=== PATIENT | male | born 1935 | race Caucasian/White ===

== ENCOUNTER 2017-12-18 14:23 | Day surgery (SDC) | payer MEDICARE ==
[2017-12-09 12:58] LABS: BASOPHILS % (AUTO) 0.4 % (0-1); EOSINOPHILS # (AUTO) 0.2 X10'3 (0-0.9); EOSINOPHILS % (AUTO) 2.8 % (0-6); HEMATOCRIT 43.8 % (42.0-52.0); HEMOGLOBIN 15.1 g/dl (14.0-17.9); LYMPHOCYTES # (AUTO) 1.5 X10'3 (1.1-4.8); LYMPHOCYTES % (AUTO) 21.3 % (21-51); MEAN CORPUSCULAR HEMOGLOBIN 33.3 PG (27.0-31.0); MEAN CORPUSCULAR HGB CONC 34.6 % (33.0-36.5); MEAN CORPUSCULAR VOLUME 96.2 FL (78-98); MEAN PLATELET VOLUME 7.7 FL (7.4-10.4); MONOCYTES # (AUTO) 0.8 X10'3 (0-0.9); NEUTROPHILS # (AUTO) 4.7 X10'3 (1.8-7.7); NEUTROPHILS % (AUTO) 64.5 % (42-75); PLATELET COUNT 243 X10'3 (140-440); RED BLOOD COUNT 4.55 X10'6 (4.70-6.10); WHITE BLOOD COUNT 7.3 X10'3 (4.5-11.0)
[2017-12-09 13:12] LABS: ALBUMIN 3.4 G/DL (3.4-5.0); ANION GAP 9 (8-16); BLOOD UREA NITROGEN 17 MG/DL (7-18); BUN/CREATININE RATIO 16.2 (5.4-32.0); CALCIUM 8.9 MG/DL (8.5-10.1); CHLORIDE 101 MMOL/L (99-107); CREATININE 1.05 MG/DL (0.60-1.10); GLUCOSE 215 MG/DL (70-104); POTASSIUM 3.6 MMOL/L (3.5-5.1); SODIUM 141 MMOL/L (135-145); TOTAL CARBON DIOXIDE 31.5 MMOL/L (24-32); eGFR 68 ML/MIN
[2017-12-09 14:18] LABS: INR 1.4 INR; PARTIAL THROMBOPLASTIN TIME 39 SECONDS (22-32); PROTHROMBIN TIME 14.8 SECONDS (9.0-12.0)
[2017-12-17 11:29] LABS: BASOPHILS % (AUTO) 0.2 % (0-1); EOSINOPHILS # (AUTO) 0.2 X10'3 (0-0.9); EOSINOPHILS % (AUTO) 3.1 % (0-6); HEMATOCRIT 42.4 % (42.0-52.0); LYMPHOCYTES # (AUTO) 1.6 X10'3 (1.1-4.8); LYMPHOCYTES % (AUTO) 22.6 % (21-51); MEAN CORPUSCULAR HEMOGLOBIN 33.6 PG (27.0-31.0); MEAN CORPUSCULAR HGB CONC 35.3 % (33.0-36.5); MEAN CORPUSCULAR VOLUME 95.1 FL (78-98); MONOCYTES # (AUTO) 0.7 X10'3 (0-0.9); MONOCYTES % (AUTO) 10.4 % (2-12); NEUTROPHILS # (AUTO) 4.4 X10'3 (1.8-7.7); NEUTROPHILS % (AUTO) 63.7 % (42-75); PLATELET COUNT 241 X10'3 (140-440); RED BLOOD COUNT 4.46 X10'6 (4.70-6.10); RED CELL DISTRIBUTION WIDTH 13.4 % (11.5-14.5); WHITE BLOOD COUNT 6.9 X10'3 (4.5-11.0)
[2017-12-17 11:40] LABS: INR 1.1 INR; PARTIAL THROMBOPLASTIN TIME 39 SECONDS (22-32); PROTHROMBIN TIME 11.8 SECONDS (9.0-12.0)
[2017-12-17 11:43] LABS: ALBUMIN 3.5 G/DL (3.4-5.0); ANION GAP 10 (8-16); BLOOD UREA NITROGEN 15 MG/DL (7-18); BUN/CREATININE RATIO 13.6 (5.4-32.0); CALCIUM 8.8 MG/DL (8.5-10.1); CHLORIDE 100 MMOL/L (99-107); GLUCOSE 277 MG/DL (70-104); POTASSIUM 3.8 MMOL/L (3.5-5.1); SODIUM 139 MMOL/L (135-145); TOTAL CARBON DIOXIDE 29.5 MMOL/L (24-32); eGFR 64 ML/MIN
[2017-12-18] VITALS (8 sets, daily range): BP systolic 103–139; BP diastolic 50–78
[~2017-12-18] VITALS: Ht 172.7 cm; Wt 89.0 kg
[~2017-12-18 14:23] MED LIST: AMIO200T57 PO; APIX5TAB3 PO; ATOR40TA71 PO; CHOL400T32 PO; INSU100C4 SQ; LANTUS SUBCUT; LIRA0.6P2 SUBCUT; LOSA1TAB41 PO; METF500T4 PO
[2017-12-18] MEDS ORDERED: LORazepam 0.5 MG tablet PO PRN (14:45)
[2017-12-18] MEDS ORDERED: normal saline 1000ml 1,000 ML IV SCH (14:45)
[2017-12-18] MEDS ORDERED: diphenhydrAMINE 25mg capsule PO PRN (14:45)
[2017-12-18] MEDS ORDERED: INSU100I29 SQ (14:50)
[2017-12-18] MEDS ORDERED: FURO-150 PO (14:50)
[2017-12-18] MEDS ORDERED: [UNRECOGNIZED DRUG - CODE] SQ (14:50)
[2017-12-18] MEDS ORDERED: LOSA25TA96 PO (14:50)
[2017-12-18] MEDS ORDERED: POTA20TA10 PO (14:50)
[2017-12-18] MEDS ORDERED: WARF5TAB PO (14:50)
[2017-12-18] MEDS ORDERED: midazolam 2 mg/2 ml injection ONE (15:25)
[2017-12-18] MEDS ORDERED: LIDOcaine 1%/PF (10mg/ml) 5ml vial ONE ×2 (15:25→15:27)
[2017-12-18] MEDS ORDERED: fentaNYL/PF 50MCG/1 ML 2ML syringe ONE (15:25)
[2017-12-18] MEDS ORDERED: iohexol 350MG/ML 100ml bottle IV ONE (15:25)
[2017-12-18] MEDS ORDERED: HYDROcodone/acetaminophen 5mg/325mg tablet PO PRN (17:35)
[2017-12-18] MEDS ORDERED: OXAZEpam 15mg capsule PO PRN (17:35)
[2017-12-18] MEDS ORDERED: ondansetron/PF 4mg/2ml inj IV PRN (17:35)
[2017-12-18] MEDS ORDERED: HYDROcodone/acetaminophen 10/325mg tab PO PRN (17:35)
[2017-12-18] MEDS ORDERED: proCHLORperazine 10 MG/2 ml inj IV PRN (17:35)
== END 2017-12-18 19:45 | disposition home or self-care (01) ==
LOC: SSTAY O 14:23
PROVIDERS: ATTEND Internal Medicine Interventional Cardiology
DX: I25.10 Atherosclerotic heart disease of native coronary artery without angina pectoris (principal); I35.1 Nonrheumatic aortic (valve) insufficiency; Z79.01 Long term (current) use of anticoagulants; E78.4 Other hyperlipidemia; E11.9 Type 2 diabetes mellitus without complications; Z79.4 Long term (current) use of insulin; Z79.899 Other long term (current) drug therapy; Z96.651 Presence of right artificial knee joint; I11.0 Hypertensive heart disease with heart failure; I50.9 Heart failure, unspecified; J44.9 Chronic obstructive pulmonary disease, unspecified; G47.33 Obstructive sleep apnea (adult) (pediatric); I48.91 Unspecified atrial fibrillation; E78.00 Pure hypercholesterolemia, unspecified; Z86.73 Personal history of transient ischemic attack (TIA), and cerebral infarction without residual deficits
CPT/HCPCS: 36415; 80048; 82948; 85025; 85610; 85730; 93458; 99152; A6257; C1769; J1644; J2001; J2250; J3010; J7030; Q0163; Q9967; 99153; A4620

== ENCOUNTER 2018-02-13 09:30 | Inpatient (IN) | payer MEDICARE ==
[2018-02-13] VITALS (10 sets, daily range): BP systolic 106–168; BP diastolic 49–93
[~2018-02-13] VITALS: Ht 167.6 cm; Wt 86.4 kg
[~2018-02-13 09:30] MED LIST changes: -APIX5TAB3 PO; -CHOL400T32 PO; +FURO-150 PO; +INSU100I29 SQ; -LANTUS SUBCUT; -LOSA1TAB41 PO; +LOSA25TA96 PO; -METF500T4 PO; +POTA20TA10 PO; +WARF5TAB PO; +[UNRECOGNIZED DRUG - CODE] SQ
[2018-02-13 09:49] LABS: BASOPHILS % (AUTO) 0.4 % (0-1); EOSINOPHILS # (AUTO) 0.2 X10'3 (0-0.9); EOSINOPHILS % (AUTO) 2.9 % (0-6); HEMATOCRIT 37.2 % (42.0-52.0); HEMOGLOBIN 12.7 g/dl (14.0-17.9); LYMPHOCYTES # (AUTO) 1.7 X10'3 (1.1-4.8); LYMPHOCYTES % (AUTO) 27.2 % (21-51); MEAN CORPUSCULAR HGB CONC 34.1 % (33.0-36.5); MEAN CORPUSCULAR VOLUME 96.8 FL (78-98); MEAN PLATELET VOLUME 7.4 FL (7.4-10.4); MONOCYTES # (AUTO) 0.7 X10'3 (0-0.9); MONOCYTES % (AUTO) 12.1 % (2-12); NEUTROPHILS # (AUTO) 3.5 X10'3 (1.8-7.7); NEUTROPHILS % (AUTO) 57.4 % (42-75); PLATELET COUNT 159 X10'3 (140-440); RED BLOOD COUNT 3.85 X10'6 (4.70-6.10); RED CELL DISTRIBUTION WIDTH 13.7 % (11.5-14.5); WHITE BLOOD COUNT 6.1 X10'3 (4.5-11.0)
[2018-02-13] MEDS ORDERED: DOPamine 400mg/D5W 250ml 250 ML IV PRN (09:56)
[2018-02-13 10:00] LABS: INR 1.7 INR; PARTIAL THROMBOPLASTIN TIME 31 SECONDS (22-32); PROTHROMBIN TIME 17.3 SECONDS (9.0-12.0)
[2018-02-13] MEDS ORDERED: DOPamine/D5W 400mg/250ml bag IV ONE (10:00)
[2018-02-13] MEDS ORDERED: atropine 0.1mg/ml 10ml syringe ONE ×2 (10:00→14:37)
[2018-02-13 10:07] LABS: ALANINE AMINOTRANSFERASE 35 U/L (12-78); ALBUMIN 2.9 G/DL (3.4-5.0); ALBUMIN/GLOBULIN RATIO 0.8 (1.1-1.5); ALKALINE PHOSPHATASE 48 IU/L (46-116); ANION GAP 5 (8-16); ASPARTATE AMINO TRANSFERASE 24 U/L (10-37); BILIRUBIN,TOTAL 0.5 MG/DL (0.1-1.0); BLOOD UREA NITROGEN 11 MG/DL (7-18); BUN/CREATININE RATIO 10.9 (5.4-32.0); CALCIUM 8.5 MG/DL (8.5-10.1); CHLORIDE 102 MMOL/L (99-107); CREATININE 1.01 MG/DL (0.60-1.10); GLUCOSE 259 MG/DL (70-104); POTASSIUM 3.7 MMOL/L (3.5-5.1); SODIUM 134 MMOL/L (135-145); TOTAL CARBON DIOXIDE 26.8 MMOL/L (24-32); TOTAL PROTEIN 6.5 G/DL (6.4-8.2); eGFR 71 ML/MIN
[2018-02-13] MEDS ORDERED: ondansetron/PF 4mg/2ml inj IV ONE (10:10)
[2018-02-13 10:14] LABS: MAGNESIUM 2.2 MG/DL (1.5-2.4)
[2018-02-13] MEDS ORDERED: LISI-604 PO (10:34)
[2018-02-13] MEDS ORDERED: ASPI-1265 PO (10:34)
[2018-02-13] MEDS ORDERED: FLO0.4C PO (10:34)
[2018-02-13] MEDS ORDERED: BUDE10.22 INH (10:34)
[2018-02-13] MEDS ORDERED: furosemide 10 MG/1 ML 10ml inj IV ONE (11:15)
[2018-02-13] MEDS ORDERED: HYDROcodone/acetaminophen 10/325mg tab PO ONE (12:20)
[2018-02-13] MEDS ORDERED: acetaminophen 325mg tablet PO PRN (12:25)
[2018-02-13] MEDS ORDERED: normal saline 1000ml 1,000 ML IV SCH (12:25)
[2018-02-13] MEDS ORDERED: magnesium hydroxide 30ml (MOM) UD suspension PO PRN (12:25)
[2018-02-13] MEDS ORDERED: HYDROcodone/acetaminophen 5mg/325mg tablet PO PRN (12:25)
[2018-02-13] MEDS ORDERED: ondansetron/PF 4mg/2ml inj IV PRN (12:25)
[2018-02-13] MEDS ORDERED: mag hydrox/Alum hydrox/simeth 30ml oral suspension PO PRN (12:25)
[2018-02-13] MEDS ORDERED: atropine 1 MG/1 ML vial IV PRN (14:50)
[2018-02-13] MEDS ORDERED: glucagon, human recombinant 1mg kit SUBCUT PRN (19:05)
[2018-02-13] MEDS ORDERED: dextrose 50%-water 50ml dispensing syringe IV PRN ×2 (19:05)
[2018-02-13] MEDS ORDERED: dextrose ORAL solution 15 GM/59 ML bottle PO PRN ×2 (19:05)
[2018-02-13] MEDS ORDERED: NORMAL SALINE IV PRN (19:10)
[2018-02-13] MEDS ORDERED: ISOPROTERENOL IV PRN (19:10)
[2018-02-13] MEDS ORDERED: phytonadione 10 MG/1 ML amp SQ ONE (19:20)
[2018-02-13] MEDS ORDERED: LIDOcaine 1% w/EPI 1:100,000 30ml vial (MDV) ONE (19:52)
[2018-02-13] MEDS ORDERED: midazolam 2 mg/2 ml injection ONE (19:52)
[2018-02-13] MEDS ORDERED: ceFAZolin 1000mg inj ONE (19:52)
[2018-02-13] MEDS ORDERED: fentaNYL/PF 50MCG/1 ML 2ML syringe ONE (19:52)
[2018-02-13] MEDS ORDERED: ceFAZolin 1GM/D5W- ADD-VANTAGE 50 ML IV ONE (19:53)
[2018-02-13] MEDS ORDERED: normal saline 1000ml 1,000 ML IV ONE (21:30)
[2018-02-13] MEDS: insulin glargine (Lantus) pen - multi-dose SQ SCH (21:40)
[2018-02-14] VITALS (17 sets, daily range): BP systolic 109–147; BP diastolic 52–78
[2018-02-14] MEDS: ceFAZolin 1GM/D5W- ADD-VANTAGE 50 ML IV SCH ×3 (03:56→21:18)
[2018-02-14 05:58] LABS: BASOPHILS % (AUTO) 0.2 % (0-1); EOSINOPHILS # (AUTO) 0.2 X10'3 (0-0.9); EOSINOPHILS % (AUTO) 2.5 % (0-6); HEMATOCRIT 37.2 % (42.0-52.0); HEMOGLOBIN 12.8 g/dl (14.0-17.9); LYMPHOCYTES # (AUTO) 1.1 X10'3 (1.1-4.8); MEAN CORPUSCULAR HEMOGLOBIN 33.4 PG (27.0-31.0); MEAN CORPUSCULAR HGB CONC 34.2 % (33.0-36.5); MEAN CORPUSCULAR VOLUME 97.4 FL (78-98); MEAN PLATELET VOLUME 7.5 FL (7.4-10.4); MONOCYTES # (AUTO) 0.8 X10'3 (0-0.9); MONOCYTES % (AUTO) 10.3 % (2-12); NEUTROPHILS # (AUTO) 5.3 X10'3 (1.8-7.7); PLATELET COUNT 157 X10'3 (140-440); RED BLOOD COUNT 3.82 X10'6 (4.70-6.10); WHITE BLOOD COUNT 7.4 X10'3 (4.5-11.0)
[2018-02-14 06:19] LABS: INR 1.7 INR; PROTHROMBIN TIME 16.9 SECONDS (9.0-12.0)
[2018-02-14 06:42] LABS: ALANINE AMINOTRANSFERASE 37 U/L (12-78); ALBUMIN 2.8 G/DL (3.4-5.0); ALBUMIN/GLOBULIN RATIO 0.8 (1.1-1.5); ALKALINE PHOSPHATASE 49 IU/L (46-116); ANION GAP 7 (8-16); ASPARTATE AMINO TRANSFERASE 22 U/L (10-37); BILIRUBIN,TOTAL 0.4 MG/DL (0.1-1.0); BLOOD UREA NITROGEN 14 MG/DL (7-18); BUN/CREATININE RATIO 14.6 (5.4-32.0); CALCIUM 8.5 MG/DL (8.5-10.1); CHLORIDE 103 MMOL/L (99-107); CREATININE 0.96 MG/DL (0.60-1.10); GLUCOSE 266 MG/DL (70-104); MAGNESIUM 2.1 MG/DL (1.5-2.4); POTASSIUM 3.8 MMOL/L (3.5-5.1); SODIUM 136 MMOL/L (135-145); TOTAL CARBON DIOXIDE 26.4 MMOL/L (24-32); TOTAL PROTEIN 6.3 G/DL (6.4-8.2); eGFR 75 ML/MIN
[2018-02-14] MEDS: insulin Lispro (HumaLOG) vial - multi-dose SQ SCH ×3 (08:50→18:42)
[2018-02-14] MEDS: insulin glargine (Lantus) pen - multi-dose SQ SCH (21:27)
[2018-02-15 03:00] VITALS: BP 126/59
[2018-02-15 06:00] VITALS: BP 120/78
[2018-02-15 07:44] LABS: BASOPHILS % (AUTO) 0.4 % (0-1); EOSINOPHILS # (AUTO) 0.2 X10'3 (0-0.9); EOSINOPHILS % (AUTO) 2.1 % (0-6); HEMOGLOBIN 13.2 g/dl (14.0-17.9); LYMPHOCYTES # (AUTO) 1.2 X10'3 (1.1-4.8); LYMPHOCYTES % (AUTO) 17.6 % (21-51); MEAN CORPUSCULAR HEMOGLOBIN 33.5 PG (27.0-31.0); MEAN CORPUSCULAR HGB CONC 34.7 % (33.0-36.5); MEAN CORPUSCULAR VOLUME 96.6 FL (78-98); MEAN PLATELET VOLUME 7.6 FL (7.4-10.4); MONOCYTES # (AUTO) 0.7 X10'3 (0-0.9); MONOCYTES % (AUTO) 9.4 % (2-12); NEUTROPHILS % (AUTO) 70.5 % (42-75); PLATELET COUNT 177 X10'3 (140-440); RED BLOOD COUNT 3.94 X10'6 (4.70-6.10); RED CELL DISTRIBUTION WIDTH 13.9 % (11.5-14.5); WHITE BLOOD COUNT 7.1 X10'3 (4.5-11.0)
[2018-02-15 08:01] LABS: ALANINE AMINOTRANSFERASE 33 U/L (12-78); ALBUMIN 3.1 G/DL (3.4-5.0); ALBUMIN/GLOBULIN RATIO 0.9 (1.1-1.5); ALKALINE PHOSPHATASE 52 IU/L (46-116); ANION GAP 9 (8-16); ASPARTATE AMINO TRANSFERASE 23 U/L (10-37); BILIRUBIN,TOTAL 0.5 MG/DL (0.1-1.0); BLOOD UREA NITROGEN 13 MG/DL (7-18); BUN/CREATININE RATIO 14.3 (5.4-32.0); CALCIUM 8.8 MG/DL (8.5-10.1); CHLORIDE 102 MMOL/L (99-107); CREATININE 0.91 MG/DL (0.60-1.10); GLUCOSE 159 MG/DL (70-104); MAGNESIUM 2.1 MG/DL (1.5-2.4); SODIUM 138 MMOL/L (135-145); TOTAL CARBON DIOXIDE 26.9 MMOL/L (24-32); TOTAL PROTEIN 6.7 G/DL (6.4-8.2); eGFR 80 ML/MIN
[2018-02-15] MEDS: insulin Lispro (HumaLOG) vial - multi-dose SQ SCH ×2 (09:22→14:30)
[2018-02-15 11:00] VITALS: BP 100/69
[2018-02-15 15:00] VITALS: BP 140/62
== END 2018-02-15 16:15 | disposition home health service (06) | DRG 242 ==
LOC: ER 09:30 → ED HOLD 12:25 → CICU 2S 14:08 → PCU 3S 02-14 13:35
PROC: 0JH606Z Insertion of Pacemaker, Dual Chamber into Chest Subcutaneous Tissue and Fascia, Open Approach (ICD-10-PCS; principal; 2018-02-13)
PROC: 02H63JZ Insertion of Pacemaker Lead into Right Atrium, Percutaneous Approach (ICD-10-PCS; 2018-02-13)
PROC: 02HK3JZ Insertion of Pacemaker Lead into Right Ventricle, Percutaneous Approach (ICD-10-PCS; 2018-02-13)
DX: I44.2 Atrioventricular block, complete (principal); G93.49 Other encephalopathy; R04.2 Hemoptysis; I11.0 Hypertensive heart disease with heart failure; I50.9 Heart failure, unspecified; Z96.659 Presence of unspecified artificial knee joint; E11.9 Type 2 diabetes mellitus without complications; R55 Syncope and collapse; I48.91 Unspecified atrial fibrillation; K21.9 Gastro-esophageal reflux disease without esophagitis; Z79.01 Long term (current) use of anticoagulants; Z79.4 Long term (current) use of insulin; Z79.51 Long term (current) use of inhaled steroids; Z79.82 Long term (current) use of aspirin; Z79.899 Other long term (current) drug therapy; Z85.038 Personal history of other malignant neoplasm of large intestine; Z95.2 Presence of prosthetic heart valve; Z87.891 Personal history of nicotine dependence
CPT/HCPCS: 33208; 36415; 71045; 80053; 82948; 83036; 83735; 83880; 84100; 84484; 85025; 85610; 85730; 87070; 93005; 93306; 96365; 96375; 97116; 97161; 99152; 99153; 99291; A4565; A4620; A6213; C1785; C1898; J0461; J0690; J1265; J1815; J1940; J2250; J2405; J3010; J3430; J3490; J7030; J7040

== ENCOUNTER 2018-03-19 14:20 | Inpatient (IN) | payer MEDICARE ==
[~2018-03-19] VITALS: Ht 170.2 cm; Wt 85.0 kg
[~2018-03-19 14:20] MED LIST changes: +ASPI-1265 PO; +BUDE10.22 INH; +FLO0.4C PO; +LISI-604 PO; -LOSA25TA96 PO; -POTA20TA10 PO; -[UNRECOGNIZED DRUG - CODE] SQ
[2018-03-19 15:20] LABS: BASOPHILS % (AUTO) 0 % (0-1); EOSINOPHILS # (AUTO) 0.1 X10'3 (0-0.9); EOSINOPHILS % (AUTO) 1.4 % (0-6); HEMATOCRIT 42.7 % (42.0-52.0); HEMOGLOBIN 14.6 g/dl (14.0-17.9); LYMPHOCYTES # (AUTO) 1.4 X10'3 (1.1-4.8); LYMPHOCYTES % (AUTO) 16.1 % (21-51); MEAN CORPUSCULAR HEMOGLOBIN 32.6 PG (27.0-31.0); MEAN CORPUSCULAR HGB CONC 34.1 % (33.0-36.5); MEAN CORPUSCULAR VOLUME 95.6 FL (78-98); MEAN PLATELET VOLUME 7.8 FL (7.4-10.4); MONOCYTES % (AUTO) 11.4 % (2-12); NEUTROPHILS # (AUTO) 6.4 X10'3 (1.8-7.7); NEUTROPHILS % (AUTO) 71.1 % (42-75); PLATELET COUNT 179 X10'3 (140-440); RED BLOOD COUNT 4.47 X10'6 (4.70-6.10); RED CELL DISTRIBUTION WIDTH 13.6 % (11.5-14.5)
[2018-03-19 15:22] LABS: INR 2.3 INR; PROTHROMBIN TIME 23.5 SECONDS (9.0-12.0)
[2018-03-19 15:28] LABS: ALANINE AMINOTRANSFERASE 40 U/L (12-78); ALBUMIN 3.6 G/DL (3.4-5.0); ALBUMIN/GLOBULIN RATIO 0.9 (1.1-1.5); ALKALINE PHOSPHATASE 66 IU/L (46-116); ANION GAP 10 (8-16); ASPARTATE AMINO TRANSFERASE 25 U/L (10-37); BILIRUBIN,TOTAL 0.9 MG/DL (0.1-1.0); BLOOD UREA NITROGEN 16 MG/DL (7-18); BUN/CREATININE RATIO 17.2 (5.4-32.0); CALCIUM 8.9 MG/DL (8.5-10.1); CHLORIDE 102 MMOL/L (99-107); CREATININE 0.93 MG/DL (0.60-1.10); GLUCOSE 117 MG/DL (70-104); POTASSIUM 3.5 MMOL/L (3.5-5.1); SODIUM 139 MMOL/L (135-145); TOTAL PROTEIN 7.5 G/DL (6.4-8.2); eGFR 78 ML/MIN
[2018-03-19] MEDS ORDERED: LIDOcaine 1% 30ml preserv. free vial IJ ONE (15:45)
[2018-03-19] MEDS ORDERED: metroNIDAZOLE-Flagyl 500mg/NS 100 ML IV STA (17:00)
[2018-03-19] MEDS ORDERED: ondansetron/PF 4mg/2ml inj IV PRN (17:40)
[2018-03-19] MEDS ORDERED: magnesium hydroxide 30ml (MOM) UD suspension PO PRN (17:40)
[2018-03-19] MEDS ORDERED: mag hydrox/Alum hydrox/simeth 30ml oral suspension PO PRN (17:40)
[2018-03-19] MEDS ORDERED: acetaminophen 325mg tablet PO PRN (17:40)
[2018-03-19] MEDS: normal saline 1000ml 1,000 ML IV SCH (18:43)
[2018-03-19] MEDS ORDERED: heparin, porcine 5000 units/ml vial SQ SCH (20:00)
[2018-03-19] MEDS ORDERED: METF500T PO (20:14)
[2018-03-19 20:30] VITALS: BP 161/63
[2018-03-19] MEDS ORDERED: warfarin 5mg tablet PO ONE (21:00)
[2018-03-19 23:00] VITALS: BP 124/58
[2018-03-20 03:00] VITALS: BP 130/58
[2018-03-20] MEDS: normal saline 1000ml 1,000 ML IV SCH (04:52)
[2018-03-20 05:30] VITALS: BP 158/62
[2018-03-20 05:53] LABS: BASOPHILS % (AUTO) 0.4 % (0-1); EOSINOPHILS # (AUTO) 0.1 X10'3 (0-0.9); EOSINOPHILS % (AUTO) 2.3 % (0-6); HEMATOCRIT 37.7 % (42.0-52.0); HEMOGLOBIN 13.1 g/dl (14.0-17.9); LYMPHOCYTES # (AUTO) 1.7 X10'3 (1.1-4.8); LYMPHOCYTES % (AUTO) 26.8 % (21-51); MEAN CORPUSCULAR HEMOGLOBIN 32.9 PG (27.0-31.0); MEAN CORPUSCULAR HGB CONC 34.8 % (33.0-36.5); MEAN CORPUSCULAR VOLUME 94.6 FL (78-98); MEAN PLATELET VOLUME 7.7 FL (7.4-10.4); MONOCYTES # (AUTO) 0.7 X10'3 (0-0.9); MONOCYTES % (AUTO) 11.8 % (2-12); NEUTROPHILS # (AUTO) 3.7 X10'3 (1.8-7.7); NEUTROPHILS % (AUTO) 58.7 % (42-75); PLATELET COUNT 149 X10'3 (140-440); RED BLOOD COUNT 3.99 X10'6 (4.70-6.10); RED CELL DISTRIBUTION WIDTH 14.1 % (11.5-14.5); WHITE BLOOD COUNT 6.2 X10'3 (4.5-11.0)
[2018-03-20 06:12] LABS: ALBUMIN 2.8 G/DL (3.4-5.0); ANION GAP 9 (8-16); BLOOD UREA NITROGEN 16 MG/DL (7-18); BUN/CREATININE RATIO 16.8 (5.4-32.0); CALCIUM 8.3 MG/DL (8.5-10.1); CHLORIDE 106 MMOL/L (99-107); CREATININE 0.95 MG/DL (0.60-1.10); GLUCOSE 184 MG/DL (70-104); POTASSIUM 3.3 MMOL/L (3.5-5.1); SODIUM 142 MMOL/L (135-145); TOTAL CARBON DIOXIDE 27.5 MMOL/L (24-32); eGFR 76 ML/MIN
[2018-03-20] MEDS ORDERED: amiodarone 200mg tablet PO SCH (08:00)
[2018-03-20] MEDS ORDERED: aspirin 81mg tab.chew PO SCH (08:30)
[2018-03-20] MEDS ORDERED: lisinopril 5mg tablet PO SCH (08:30)
[2018-03-20] MEDS ORDERED: metFORMIN 500mg tablet PO SCH (08:30)
[2018-03-20] MEDS ORDERED: albuterol 2.5 MG/3 ML nebule NEB SCH (11:00)
[2018-03-20] MEDS ORDERED: BUDESONIDE 0.25 MG/2 ML AMPUL.NEB IH SCH (20:00)
[2018-03-20] MEDS ORDERED: atorvastatin 20mg tablet PO SCH (21:00)
[2018-03-20] MEDS ORDERED: tamsulosin 0.4mg capsule PO SCH (21:00)
[2018-03-20] MEDS ORDERED: warfarin 5mg tablet PO SCH (21:00)
[2018-03-21] MEDS ORDERED: furosemide 20MG tablet PO SCH (08:00)
== END 2018-03-20 13:00 | disposition home or self-care (01) | DRG 563 ==
LOC: ER 14:20 → ED HOLD 17:37 → PCU 3S 21:02
PROVIDERS: ADMIT Family Medicine; ATTEND Family Medicine
PROC: 2W3DX1Z Immobilization of Left Lower Arm using Splint (ICD-10-PCS; principal; 2018-03-19)
PROC: 0PSVXZZ Reposition Left Finger Phalanx, External Approach (ICD-10-PCS; 2018-03-19)
DX: S62.617A Displaced fracture of proximal phalanx of left little finger, initial encounter for closed fracture (principal); S70.02XA Contusion of left hip, initial encounter; E11.9 Type 2 diabetes mellitus without complications; N40.0 Benign prostatic hyperplasia without lower urinary tract symptoms; I48.91 Unspecified atrial fibrillation; E78.5 Hyperlipidemia, unspecified; I11.0 Hypertensive heart disease with heart failure; I50.9 Heart failure, unspecified; J44.9 Chronic obstructive pulmonary disease, unspecified; R19.7 Diarrhea, unspecified; R29.6 Repeated falls; K21.9 Gastro-esophageal reflux disease without esophagitis; W01.0XXA Fall on same level from slipping, tripping and stumbling without subsequent striking against object, initial encounter; Z95.0 Presence of cardiac pacemaker; Z95.2 Presence of prosthetic heart valve; Z79.01 Long term (current) use of anticoagulants; Z79.899 Other long term (current) drug therapy; Z79.82 Long term (current) use of aspirin; Z79.4 Long term (current) use of insulin; Z85.038 Personal history of other malignant neoplasm of large intestine; Y93.89 Activity, other specified; Y92.481 Parking lot as the place of occurrence of the external cause; Y99.8 Other external cause status; Z90.49 Acquired absence of other specified parts of digestive tract
CPT/HCPCS: 36415; 73130; 73502; 80048; 80053; 85025; 85610; 87070; 93005; J3490; J7030

== ENCOUNTER 2018-08-01 11:37 | Emergency (ER) | payer MEDICARE ==
[~2018-08-01] VITALS: Ht 172.7 cm; Wt 86.0 kg
[~2018-08-01 11:37] MED LIST changes: +AMIO200T40 PO; -AMIO200T57 PO; -INSU100I29 SQ; -LIRA0.6P2 SUBCUT; +METF500T PO
[2018-08-01 13:38] VITALS: BP 118/60
== END 2018-08-01 13:38 | disposition home or self-care (01) ==
LOC: ER 11:38
DX: S80.12XA Contusion of left lower leg, initial encounter (principal); I48.91 Unspecified atrial fibrillation; I11.0 Hypertensive heart disease with heart failure; I50.9 Heart failure, unspecified; K21.9 Gastro-esophageal reflux disease without esophagitis; E11.9 Type 2 diabetes mellitus without complications; Z85.038 Personal history of other malignant neoplasm of large intestine; Z90.49 Acquired absence of other specified parts of digestive tract; Z95.0 Presence of cardiac pacemaker; Z79.82 Long term (current) use of aspirin; Z79.899 Other long term (current) drug therapy; Z79.01 Long term (current) use of anticoagulants; W18.49XA Other slipping, tripping and stumbling without falling, initial encounter; Y93.89 Activity, other specified; Y92.89 Other specified places as the place of occurrence of the external cause; Y99.9 Unspecified external cause status
CPT/HCPCS: 73564; 73610; 99284

== ENCOUNTER 2018-09-17 23:54 | Inpatient (IN) | payer MEDICARE ==
[~2018-09-17] VITALS: Ht 172.7 cm; Wt 85.0 kg
[2018-09-18 00:22] LABS: BASOPHILS # (AUTO) 0.1 X10'3 (0-0.2); BASOPHILS % (AUTO) 0.4 % (0-1); EOSINOPHILS # (AUTO) 0.2 X10'3 (0-0.9); EOSINOPHILS % (AUTO) 1.2 % (0-6); HEMATOCRIT 46.6 % (42.0-52.0); HEMOGLOBIN 15.7 g/dl (14.0-17.9); LYMPHOCYTES # (AUTO) 1.6 X10'3 (1.1-4.8); LYMPHOCYTES % (AUTO) 9.6 % (21-51); MEAN CORPUSCULAR HEMOGLOBIN 32.4 PG (27.0-31.0); MEAN CORPUSCULAR HGB CONC 33.7 % (33.0-36.5); MEAN CORPUSCULAR VOLUME 96.2 FL (78-98); MEAN PLATELET VOLUME 7.9 FL (7.4-10.4); MONOCYTES % (AUTO) 5.9 % (2-12); NEUTROPHILS # (AUTO) 14.1 X10'3 (1.8-7.7); NEUTROPHILS % (AUTO) 82.9 % (42-75); PLATELET COUNT 186 X10'3 (140-440); RED BLOOD COUNT 4.84 X10'6 (4.70-6.10); RED CELL DISTRIBUTION WIDTH 13.9 % (11.5-14.5)
[2018-09-18 00:35] LABS: ALANINE AMINOTRANSFERASE 47 U/L (12-78); ALBUMIN 3.7 G/DL (3.4-5.0); ALKALINE PHOSPHATASE 67 IU/L (46-116); ANION GAP 10 (8-16); ASPARTATE AMINO TRANSFERASE 19 U/L (10-37); BILIRUBIN,TOTAL 0.5 MG/DL (0.1-1.0); BLOOD UREA NITROGEN 16 MG/DL (7-18); BUN/CREATININE RATIO 16.3 (5.4-32.0); CALCIUM 8.9 MG/DL (8.5-10.1); CHLORIDE 100 MMOL/L (99-107); CREATININE 0.98 MG/DL (0.60-1.10); GLUCOSE 331 MG/DL (70-104); POTASSIUM 3.8 MMOL/L (3.5-5.1); SODIUM 136 MMOL/L (135-145); TOTAL CARBON DIOXIDE 25.8 MMOL/L (24-32); TOTAL PROTEIN 7.3 G/DL (6.4-8.2); eGFR 73 ML/MIN
[2018-09-18] MEDS ORDERED: morphine 4 MG/ML inj SYRINge IV ONE (00:45)
[2018-09-18] MEDS ORDERED: normal saline 1000ML IV soln IVB ONE ×2 (00:45)
[2018-09-18] MEDS ORDERED: ondansetron/PF 4mg/2ml inj IV ONE (00:45)
[2018-09-18] MEDS ORDERED: pantoprazole 40 MG vial IV ONE (00:45)
[2018-09-18 00:47] LABS: INR 1.8 INR; PROTHROMBIN TIME 17.9 SECONDS (9.0-12.0)
[2018-09-18] MEDS ORDERED: iohexol 300mg/ml 100ml inj. ONE (00:58)
[2018-09-18 01:16] LABS: LIPASE 143 U/L (73-393); TROPONIN I < 0.04 NG/ML (0.0-0.05)
[2018-09-18] MEDS ORDERED: LIRA0.6P2 SUBCUT (03:34)
[2018-09-18] MEDS ORDERED: COU2.5T PO (03:34)
[2018-09-18] MEDS ORDERED: INSU100I29 (03:34)
[2018-09-18 04:14] LABS: CLARITY,URINE CLEAR (Clear); COLOR,URINE YELLOW (Yellow); GLUCOSE, URINE >=1000 mg/dl (Neg); KETONES,URINE 15 mg/dl (Neg); LEUKOCYTE ESTERASE ,URINE NEGATIVE (Neg); NITRITES, URINE NEGATIVE (Neg); OCCULT BLOOD,URINE NEGATIVE (Neg); PROTEIN,URINE NEGATIVE (Neg)
[2018-09-18 04:17] LABS: UA COLLECTION TYPE CLN CATCH MIDSTREAM
[2018-09-18 04:25] LABS: BACTERIA,URINE NONE SEEN /HPF (Neg); RBC,URINE NONE SEEN /HPF (0-2); SQUAMOUS EPITHELIAL CELL,UR FEW /LPF (FEW); WBC,URINE NONE SEEN /HPF (0-4)
[2018-09-18] MEDS ORDERED: ondansetron/PF 4mg/2ml inj IV PRN (04:55)
[2018-09-18] MEDS ORDERED: morphine 4 MG/ML inj SYRINge IV PRN ×2 (04:55)
[2018-09-18] MEDS ORDERED: magnesium hydroxide 30ml (MOM) UD suspension PO PRN (04:55)
[2018-09-18] MEDS: normal saline 1000ml 1,000 ML IV SCH ×2 (04:55→15:49)
[2018-09-18] MEDS ORDERED: glucagon, human recombinant 1mg kit SUBCUT PRN (05:05)
[2018-09-18] MEDS ORDERED: dextrose ORAL solution 15 GM/59 ML bottle PO PRN ×2 (05:05)
[2018-09-18] MEDS ORDERED: dextrose 50%-water 50ml dispensing syringe IV PRN ×2 (05:05)
[2018-09-18] MEDS ORDERED: MESSAGE TO PHARMACY PO ONE (05:05)
[2018-09-18 05:20] VITALS: BP 144/57
[2018-09-18 05:31] LABS: HEMOGLOBIN A1C 8.1 % (4.5-6.2)
[2018-09-18] MEDS ORDERED: heparin 10,000 units/1 ML INJ IV PRN ×2 (06:40→11:00)
[2018-09-18] MEDS: piperacillin/tazo 3.375gm/50ml 50 ML IV SCH ×3 (07:46→23:43)
[2018-09-18] MEDS: furosemide 20MG tablet PO SCH (07:47)
[2018-09-18] MEDS: aspirin 81mg tab.chew PO SCH (07:47)
[2018-09-18 08:00] VITALS: BP 150/56
[2018-09-18] MEDS: LIRAGLUTIDE SUBCUT SCH (08:00)
[2018-09-18] MEDS ORDERED: warfarin 2.5mg tablet PO SCH (08:00)
[2018-09-18] MEDS: [UNRECOGNIZED DRUG - OTHER] SUBCUT SCH (08:00)
[2018-09-18] MEDS ORDERED: non-formulary drug (Budesonide/Formoterol Fumarate (Symbicort 80-4.5 Mcg Inhaler) 2 PUFFS) INH SCH (08:00)
[2018-09-18] MEDS: [UNRECOGNIZED DRUG - REMARK] PO SCH (08:06)
[2018-09-18] MEDS: albuterol 2.5 MG/3 ML nebule NEB SCH ×3 (10:13→21:38)
[2018-09-18] MEDS: budesonide 0.5mg/2ml UD nebule IH SCH ×2 (10:13→21:39)
[2018-09-18] MEDS: insulin Lispro (HumaLOG) vial - multi-dose SQ SCH ×3 (10:16→18:50)
[2018-09-18 11:00] VITALS: BP 143/62
[2018-09-18] MEDS ORDERED: heparin 25,000 UNIT/250ml bag 250 ML IV SCH (11:00)
[2018-09-18 18:45] VITALS: BP 111/54
[2018-09-18] MEDS: lactobacillus rhamnosus 10,000 MMU CELLS/CAPSULE PO SCH (19:25)
[2018-09-18] MEDS ORDERED: amiodarone 200mg tablet PO SCH (21:00)
[2018-09-18] MEDS ORDERED: atorvastatin 20mg tablet PO SCH (21:00)
[2018-09-18] MEDS ORDERED: warfarin 2.5mg tablet PO ONE (21:00)
[2018-09-19] VITALS: BP 113/57
[2018-09-19] MEDS: normal saline 1000ml 1,000 ML IV SCH (00:55)
[2018-09-19] MEDS: albuterol 2.5 MG/3 ML nebule NEB SCH ×2 (03:00→09:00)
[2018-09-19 06:23] LABS: BASOPHILS % (AUTO) 0.3 % (0-1); EOSINOPHILS # (AUTO) 0.2 X10'3 (0-0.9); EOSINOPHILS % (AUTO) 3.1 % (0-6); HEMATOCRIT 37.9 % (42.0-52.0); HEMOGLOBIN 12.8 g/dl (14.0-17.9); LYMPHOCYTES # (AUTO) 1.2 X10'3 (1.1-4.8); LYMPHOCYTES % (AUTO) 18.9 % (21-51); MEAN CORPUSCULAR HEMOGLOBIN 32.2 PG (27.0-31.0); MEAN CORPUSCULAR HGB CONC 33.8 % (33.0-36.5); MEAN CORPUSCULAR VOLUME 95.3 FL (78-98); MEAN PLATELET VOLUME 8.1 FL (7.4-10.4); MONOCYTES # (AUTO) 0.7 X10'3 (0-0.9); MONOCYTES % (AUTO) 10.9 % (2-12); NEUTROPHILS # (AUTO) 4.3 X10'3 (1.8-7.7); NEUTROPHILS % (AUTO) 66.8 % (42-75); PLATELET COUNT 140 X10'3 (140-440); RED BLOOD COUNT 3.98 X10'6 (4.70-6.10); RED CELL DISTRIBUTION WIDTH 13.7 % (11.5-14.5); WHITE BLOOD COUNT 6.4 X10'3 (4.5-11.0)
[2018-09-19 06:39] LABS: INR 1.8 INR; PARTIAL THROMBOPLASTIN TIME 34 SECONDS (22-32); PROTHROMBIN TIME 17.6 SECONDS (9.0-12.0)
[2018-09-19 06:53] LABS: ALANINE AMINOTRANSFERASE 34 U/L (12-78); ALBUMIN 2.7 G/DL (3.4-5.0); ALBUMIN/GLOBULIN RATIO 0.9 (1.1-1.5); ALKALINE PHOSPHATASE 41 IU/L (46-116); ANION GAP 6 (8-16); ASPARTATE AMINO TRANSFERASE 16 U/L (10-37); BILIRUBIN,TOTAL 0.7 MG/DL (0.1-1.0); BLOOD UREA NITROGEN 15 MG/DL (7-18); CALCIUM 8.1 MG/DL (8.5-10.1); CHLORIDE 105 MMOL/L (99-107); CREATININE 0.94 MG/DL (0.60-1.10); GLUCOSE 253 MG/DL (70-104); POTASSIUM 3.8 MMOL/L (3.5-5.1); SODIUM 139 MMOL/L (135-145); TOTAL CARBON DIOXIDE 28.3 MMOL/L (24-32); TOTAL PROTEIN 5.6 G/DL (6.4-8.2); eGFR 77 ML/MIN
[2018-09-19 07:00] VITALS: BP 125/58
[2018-09-19] MEDS: furosemide 20MG tablet PO SCH (07:53)
[2018-09-19] MEDS: lactobacillus rhamnosus 10,000 MMU CELLS/CAPSULE PO SCH (07:53)
[2018-09-19] MEDS: aspirin 81mg tab.chew PO SCH (07:54)
[2018-09-19] MEDS: piperacillin/tazo 3.375gm/50ml 50 ML IV SCH (07:55)
[2018-09-19] MEDS: [UNRECOGNIZED DRUG - OTHER] SUBCUT SCH (08:00)
[2018-09-19] MEDS: [UNRECOGNIZED DRUG - REMARK] PO SCH (08:00)
[2018-09-19] MEDS: LIRAGLUTIDE SUBCUT SCH (08:00)
[2018-09-19] MEDS: insulin Lispro (HumaLOG) vial - multi-dose SQ SCH (08:49)
[2018-09-19] MEDS: budesonide 0.5mg/2ml UD nebule IH SCH (09:38)
[2018-09-19 11:00] VITALS: BP 125/63
== END 2018-09-19 12:25 | disposition home or self-care (01) | DRG 392 ==
LOC: ER 23:54 → ED HOLD 09-18 04:55 → SUR 3N 09-18 05:30
PROVIDERS: ADMIT Internal Medicine; ATTEND Family Medicine
PROC: BW211ZZ Computerized Tomography (CT Scan) of Abdomen and Pelvis using Low Osmolar Contrast (ICD-10-PCS; principal; 2018-09-18)
DX: A08.4 Viral intestinal infection, unspecified (principal); K56.600 Partial intestinal obstruction, unspecified as to cause; I48.91 Unspecified atrial fibrillation; E11.9 Type 2 diabetes mellitus without complications; E78.5 Hyperlipidemia, unspecified; I11.0 Hypertensive heart disease with heart failure; J44.9 Chronic obstructive pulmonary disease, unspecified; I50.9 Heart failure, unspecified; K21.9 Gastro-esophageal reflux disease without esophagitis; F43.9 Reaction to severe stress, unspecified; Z96.659 Presence of unspecified artificial knee joint; D72.829 Elevated white blood cell count, unspecified; Z90.49 Acquired absence of other specified parts of digestive tract; Z95.0 Presence of cardiac pacemaker; Z95.2 Presence of prosthetic heart valve; Z79.01 Long term (current) use of anticoagulants; Z79.4 Long term (current) use of insulin; Z79.51 Long term (current) use of inhaled steroids; Z79.82 Long term (current) use of aspirin; Z79.899 Other long term (current) drug therapy; Z85.038 Personal history of other malignant neoplasm of large intestine
CPT/HCPCS: 36415; 71045; 74177; 80053; 81001; 82948; 83036; 83605; 83690; 84484; 85025; 85610; 85730; 87040; 87070; 93005; 94640; 94760; 96361; 96374; 96375; 99285; C9113; G0378; J1644; J2270; J2405; J2543; J7030; J7626; Q9967

== ENCOUNTER 2019-02-05 07:13 | Day surgery (SDC) | payer MEDICARE ==
[2019-01-28 10:24] LABS: BASOPHILS # (AUTO) 0.1 X10'3 (0-0.2); BASOPHILS % (AUTO) 1.2 % (0-1); EOSINOPHILS # (AUTO) 0.3 X10'3 (0-0.9); EOSINOPHILS % (AUTO) 4.3 % (0-6); LYMPHOCYTES # (AUTO) 1.3 X10'3 (1.1-4.8); LYMPHOCYTES % (AUTO) 20.6 % (21-51); MEAN CORPUSCULAR HEMOGLOBIN 32.5 PG (27.0-31.0); MEAN CORPUSCULAR HGB CONC 34.2 g/dL (33.0-36.5); MEAN CORPUSCULAR VOLUME 94.9 FL (78-98); MEAN PLATELET VOLUME 7.9 FL (7.4-10.4); MONOCYTES # (AUTO) 0.7 X10'3 (0-0.9); MONOCYTES % (AUTO) 10.8 % (2-12); NEUTROPHILS # (AUTO) 4.1 X10'3 (1.8-7.7); NEUTROPHILS % (AUTO) 63.1 % (42-75); PRE OP HEMATOCRIT 43.2 % (42.0-52.0); PRE OP HEMOGLOBIN 14.8 g/dL (14.0-17.9); PRE OP PLATELET COUNT 175 X10'3 (140-440); RED BLOOD COUNT 4.55 X10'6 (4.70-6.10); RED CELL DISTRIBUTION WIDTH 13.7 % (11.5-14.5)
[2019-01-28 10:35] LABS: HEMOGLOBIN A1C 8.1 % (4.5-6.2)
[2019-01-28 10:38] LABS: PRE OP PROTIME 36.1 SECONDS (9.0-12.0)
[2019-01-28 10:39] LABS: PRE OP INR 3.8 INR
[2019-01-28 10:45] LABS: ALBUMIN 3.4 G/DL (3.4-5.0); ALKALINE PHOSPHATASE 53 IU/L (46-116); BLOOD UREA NITROGEN 14 MG/DL (7-18); BUN/CREATININE RATIO 14.7 (5.4-32.0); CALCIUM 8.7 MG/DL (8.5-10.1); CHLORIDE 104 MMOL/L (99-107); CREATININE 0.95 MG/DL (0.60-1.10); PRE OP ALT 62 U/L (30-65); PRE OP ANION GAP 6 (8-16); PRE OP AST 31 U/L (10-37); PRE OP BILIRUB, TOTAL 0.5 MG/DL (0.0-1.0); PRE OP POTASSIUM 4.2 MMOL/L (3.4-5.1); PRE OP SODIUM 139 MMOL/L (135-145); TOTAL CARBON DIOXIDE 28.9 MMOL/L (24-32); TOTAL PROTEIN 6.8 G/DL (6.4-8.2); eGFR 76 ML/MIN
[2019-01-28 10:46] LABS: PRE OP GLUCOSE 201 MG/DL (70-104)
[2019-02-05] VITALS (17 sets, daily range): BP systolic 105–155; BP diastolic 51–70
[~2019-02-05] VITALS: Ht 172.7 cm; Wt 86.8 kg
[~2019-02-05 07:13] MED LIST changes: -ASPI-1265 PO; +COU2.5T PO; -FLO0.4C PO; -FURO-150 PO; +FURO20TA4 PO; +INSU100I29 SQ; +LIRA0.6P2 SUBCUT; -LISI-604 PO; +LOSA50TA64 PO; -METF500T PO; +VANCOMYCIN INJ 1000 MG in NORMAL SALINE 250ml IV.SOLN IV ONE; -WARF5TAB PO; +ceFAZolin 2gm in dextrose, iso 100 ML IV ONE; +famotidine 20mg tablet PO ONE; +ringers solution, lacted 1,000 ML IV SCH
[2019-02-05] MEDS ORDERED: ROPIVAcaine 0.5% (5mg/ml) 30ml vial ONE (09:09)
[2019-02-05] MEDS ORDERED: ringers solution, lacted 1,000 ML IV SCH (09:13)
[2019-02-05] MEDS ORDERED: morphine 4 MG/ML inj SYRINge IV PRN ×2 (09:15)
[2019-02-05] MEDS ORDERED: ondansetron/PF 4mg/2ml inj IV PRN ×2 (09:15→11:45)
[2019-02-05] MEDS ORDERED: labetalol 20mg/4ml (5mg/ml) syringe IV PRN (09:15)
[2019-02-05] MEDS ORDERED: hydrALAZINE 20mg/ml inj. IV PRN (09:15)
[2019-02-05] MEDS ORDERED: fentaNYL/PF 50MCG/1 ML 2ML syringe IV PRN ×2 (09:15)
[2019-02-05] MEDS ORDERED: BUPIVAcaine/PF 2.5mg/ml (0.25%) 10ml vial ONE (09:17)
[2019-02-05] MEDS ORDERED: BUPIVAcaine/PF 2.5 mg/ml (0.25%) 30ml vial ONE (09:17)
[2019-02-05] MEDS ORDERED: triamcinolone acetonide 40mg/ml inj ONE (09:17)
[2019-02-05] MEDS ORDERED: MIDAZolam 1mg/ml 10ml vial ONE (09:21)
[2019-02-05] MEDS ORDERED: fentaNYL/PF 50MCG/1 ML 2ML syringe ONE (09:21)
[2019-02-05 09:49] LABS: PARTIAL THROMBOPLASTIN TIME 35 SECONDS (22-32)
--- NOTE | 2019-02-05 11:30 | NUR ---
Received from OR via , accompanied by Anesthesiologist DR GALARZA and report given by Anesthesiolgist. AWAKE AND PAM PAIN. VITALS STABLE. DRESSINGS DI. SENSATION JUST ABOVE THE HIPS.
[2019-02-05] MEDS ORDERED: diphenhydrAMINE 25mg capsule PO PRN ×2 (11:45)
[2019-02-05] MEDS ORDERED: bisacodyl 10mg suppository rectal RC PRN (11:45)
[2019-02-05] MEDS ORDERED: magnesium hydroxide 30ml (MOM) UD suspension PO PRN (11:45)
[2019-02-05] MEDS ORDERED: acetaminophen 325mg tablet PO PRN (11:45)
[2019-02-05] MEDS ORDERED: metoclopramide 5 mg/ml inj IV PRN (11:45)
[2019-02-05] MEDS ORDERED: HYDROcodone/acetaminophen 10/325mg tab PO PRN ×2 (11:45)
[2019-02-05] MEDS ORDERED: mag hydrox/Alum hydrox/simeth 30ml oral suspension PO PRN (11:45)
--- NOTE | 2019-02-05 12:30 | NUR ---
Report called to receiving nurse. Transferred via [facility] . Special Issues communicated to receiving nurse. AWAKE AND ORIENTED. VITALS STABLE. DRESSINGS DI. PAM PAIN. TO ORTHO RM 4016Y AT THIS TIME.
[2019-02-05] MEDS: potassium cl 20mEq in 1/2 NS 1,000 ML IV SCH ×2 (13:39→22:37)
[2019-02-05] MEDS: acetaminophen 325mg tablet PO SCH ×2 (13:40→20:56)
[2019-02-05] MEDS: ceFAZolin 1GM/D5W- ADD-VANTAGE 50 ML IV SCH (17:42)
[2019-02-05] MEDS: insulin Lispro (HumaLOG) vial - multi-dose SQ SCH ×3 (18:00→21:10)
--- NOTE | 2019-02-05 18:00 | NUR ---
Problems reprioritized. Patient report given, questions answered & plan of care reviewed with Macarena LOPEZ.
--- NOTE | 2019-02-05 18:00 | NUR ---
Unable to give insulin due to no sliding scale provided by MD. does not have sliding scale from home either. Calling MD to obtain orders.
--- NOTE | 2019-02-05 18:26 | NUR ---
Patient in room ORTHO 4012. I have received report from Cass LOPEZ and had the opportunity to ask questions and assume patient care.
--- NOTE | 2019-02-05 18:30 | NUR ---
Called MD and called answering service about patient's insulin. Emar states to see MD orders for sliding scale but no slide scale was provided. Waiting on MD to call back but unable to give insulin at this time.
--- NOTE | 2019-02-05 20:02 | NUR ---
Called applications tester service again about patients insulin and patient unable to void. Bladder scanned 939ml. Waiting on MD to call back.
[2019-02-05] MEDS ORDERED: dextrose ORAL solution 15 GM/59 ML bottle PO PRN ×2 (20:45)
[2019-02-05] MEDS ORDERED: MESSAGE TO PHARMACY PO ONE (20:45)
[2019-02-05] MEDS ORDERED: dextrose 50%-water 50ml dispensing syringe IV PRN ×2 (20:45)
[2019-02-05] MEDS ORDERED: glucagon, human recombinant 1mg kit SUBCUT PRN (20:45)
--- NOTE | 2019-02-05 20:50 | NUR ---
Obtained diabetic protocol and straight cath order from transplant nurse practitioner MD. Patient was incontinent of urine. Bladder scanned with 560ml post void. Patient states he doesn't want to be straight cath and wants to keep attempting to void. Will continue to monitor voids.
[2019-02-05] MEDS: ascorbic acid 500mg tablet PO SCH (20:56)
[2019-02-05] MEDS ORDERED: atorvastatin 20mg tablet PO SCH (21:00)
[2019-02-05] MEDS ORDERED: sennosides 8.6mg tablet PO SCH (21:00)
[2019-02-05] MEDS ORDERED: amiodarone 200mg tablet PO SCH (21:00)
[2019-02-05] MEDS ORDERED: VICTOZA 1.8 MG SQ SCH (21:00)
[2019-02-05] MEDS ORDERED: warfarin 2.5mg tablet PO SCH (21:00)
[2019-02-05] MEDS ORDERED: insulin glargine (Lantus) pen - multi-dose SQ SCH (21:00)
[2019-02-06] MEDS: ceFAZolin 1GM/D5W- ADD-VANTAGE 50 ML IV SCH (00:20)
[2019-02-06 02:00] VITALS: BP 159/71
[2019-02-06] MEDS: acetaminophen 325mg tablet PO SCH ×2 (02:00→08:00)
[2019-02-06 05:23] LABS: BASOPHILS % (AUTO) 0.1 % (0-1); EOSINOPHILS % (AUTO) 0 % (0-6); HEMATOCRIT 42.3 % (42.0-52.0); HEMOGLOBIN 14.3 g/dl (14.0-17.9); LYMPHOCYTES # (AUTO) 0.6 X10'3 (1.1-4.8); LYMPHOCYTES % (AUTO) 7.4 % (21-51); MEAN CORPUSCULAR HEMOGLOBIN 32.4 PG (27.0-31.0); MEAN CORPUSCULAR HGB CONC 33.7 g/dL (33.0-36.5); MEAN PLATELET VOLUME 8.3 FL (7.4-10.4); MONOCYTES # (AUTO) 0.2 X10'3 (0-0.9); MONOCYTES % (AUTO) 2.8 % (2-12); NEUTROPHILS # (AUTO) 7.5 X10'3 (1.8-7.7); NEUTROPHILS % (AUTO) 89.7 % (42-75); PLATELET COUNT 160 X10'3 (140-440); RED BLOOD COUNT 4.41 X10'6 (4.70-6.10); RED CELL DISTRIBUTION WIDTH 13.5 % (11.5-14.5); WHITE BLOOD COUNT 8.4 X10'3 (4.5-11.0)
[2019-02-06 05:46] LABS: ANION GAP 11 (8-16); CHLORIDE 103 MMOL/L (99-107); POTASSIUM 4.2 MMOL/L (3.5-5.1); SODIUM 136 MMOL/L (135-145); TOTAL CARBON DIOXIDE 21.7 MMOL/L (24-32)
[2019-02-06 06:00] VITALS: BP 99/72
[2019-02-06] MEDS: potassium cl 20mEq in 1/2 NS 1,000 ML IV SCH ×2 (06:00→11:42)
--- NOTE | 2019-02-06 06:30 | NUR ---
Patient in room ORTHO 4012. I have received report from Macarena LOPEZ and had the opportunity to ask questions and assume patient care.
--- NOTE | 2019-02-06 06:32 | NUR ---
Problems reprioritized. Patient report given, questions answered & plan of care reviewed with Cass LOPEZ.
[2019-02-06] MEDS ORDERED: multivitamins, therapeutics tablet PO SCH (08:00)
[2019-02-06] MEDS ORDERED: furosemide 20MG tablet PO SCH (08:00)
[2019-02-06] MEDS ORDERED: losartan 50mg tablet PO SCH (08:00)
[2019-02-06] MEDS: insulin Lispro (HumaLOG) vial - multi-dose SQ SCH ×2 (08:34→12:54)
[2019-02-06] MEDS: ascorbic acid 500mg tablet PO SCH (08:37)
[2019-02-06 10:00] VITALS: BP 124/66
--- NOTE | 2019-02-06 15:02 | NUR ---
Patient stable for discharge home today with . All DC instructions given to patient and . IV out and belongings sent with patient.
== END 2019-02-06 13:39 ==
LOC: PAS 07:13 → ORTHO 4S 12:53 → PAS 02-06 13:39
PROVIDERS: ATTEND Orthopaedic Surgery
DX: S62.617P Displaced fracture of proximal phalanx of left little finger, subsequent encounter for fracture with malunion (principal); S83.242D Other tear of medial meniscus, current injury, left knee, subsequent encounter; S83.282D Other tear of lateral meniscus, current injury, left knee, subsequent encounter; M24.542 Contracture, left hand; E11.59 Type 2 diabetes mellitus with other circulatory complications; E78.5 Hyperlipidemia, unspecified; M20.002 Unspecified deformity of left finger(s); M17.12 Unilateral primary osteoarthritis, left knee; M94.262 Chondromalacia, left knee; Y93.89 Activity, other specified; Y92.89 Other specified places as the place of occurrence of the external cause; Y99.8 Other external cause status; Z79.899 Other long term (current) drug therapy; Z68.30 Body mass index [BMI] 30.0-30.9, adult; X58.XXXD Exposure to other specified factors, subsequent encounter; Z72.89 Other problems related to lifestyle; Z87.891 Personal history of nicotine dependence; Z96.651 Presence of right artificial knee joint
CPT/HCPCS: 26440; 26860; 29873; 29879; 29880; 36415; 71046; 80051; 80053; 82948; 83036; 85025; 85610; 85730; 97116; 97162; 97530; C1713; J0690; J2250; J3010; J3301; J3370; J3490; A6250; A6449; A7000; G0378; J1815; J2795; J7030; J7120

== ENCOUNTER 2019-04-14 16:55 | Emergency (ER) | payer MEDICARE ==
[~2019-04-14] VITALS: Ht 172.7 cm; Wt 92.0 kg
[~2019-04-14 16:55] MED LIST changes: +CYAN100019 PO; +DOXY-224 PO; +ERGO400C; -LOSA50TA64 PO; -VANCOMYCIN INJ 1000 MG in NORMAL SALINE 250ml IV.SOLN IV ONE; -ceFAZolin 2gm in dextrose, iso 100 ML IV ONE; -famotidine 20mg tablet PO ONE; -ringers solution, lacted 1,000 ML IV SCH
[2019-04-14 17:44] LABS: BASOPHILS % (AUTO) 0.2 % (0-1); EOSINOPHILS % (AUTO) 0.4 % (0-6); HEMATOCRIT 39.9 % (42.0-52.0); HEMOGLOBIN 13.4 g/dl (14.0-17.9); LYMPHOCYTES # (AUTO) 0.7 X10'3 (1.1-4.8); LYMPHOCYTES % (AUTO) 7.8 % (21-51); MEAN CORPUSCULAR HEMOGLOBIN 32.3 PG (27.0-31.0); MEAN CORPUSCULAR HGB CONC 33.6 g/dL (33.0-36.5); MEAN CORPUSCULAR VOLUME 96.2 FL (78-98); MEAN PLATELET VOLUME 7.7 FL (7.4-10.4); MONOCYTES % (AUTO) 11.8 % (2-12); NEUTROPHILS % (AUTO) 79.8 % (42-75); PLATELET COUNT 170 X10'3 (140-440); RED BLOOD COUNT 4.14 X10'6 (4.70-6.10); RED CELL DISTRIBUTION WIDTH 14.2 % (11.5-14.5); WHITE BLOOD COUNT 8.8 X10'3 (4.5-11.0)
[2019-04-14 17:55] LABS: ALANINE AMINOTRANSFERASE 51 U/L (12-78); ALBUMIN 2.6 G/DL (3.4-5.0); ALBUMIN/GLOBULIN RATIO 0.7 (1.1-1.5); ALKALINE PHOSPHATASE 60 IU/L (46-116); ANION GAP 10 (8-16); ASPARTATE AMINO TRANSFERASE 26 U/L (10-37); BLOOD UREA NITROGEN 15 MG/DL (7-18); BUN/CREATININE RATIO 15.8 (5.4-32.0); CALCIUM 8.5 MG/DL (8.5-10.1); CHLORIDE 98 MMOL/L (99-107); CREATININE 0.95 MG/DL (0.60-1.10); GLUCOSE 274 MG/DL (70-104); POTASSIUM 3.7 MMOL/L (3.5-5.1); SODIUM 134 MMOL/L (135-145); TOTAL CARBON DIOXIDE 25.9 MMOL/L (24-32); TOTAL PROTEIN 6.6 G/DL (6.4-8.2); eGFR 76 ML/MIN
[2019-04-14 18:00] LABS: PARTIAL THROMBOPLASTIN TIME 42 SECONDS (22-32)
[2019-04-14] MEDS ORDERED: piperacillin/tazo 3.375gm/50ml 50 ML IV ONE (19:00)
[2019-04-14] MEDS ORDERED: CEPH-572 PO (19:39)
[2019-04-14] MEDS ORDERED: CefTRIAXone 2gm/D5W 50ml 50 ML IV ONE (19:40)
[2019-04-14] MEDS ORDERED: amox tr/potassium clavulanate 875/125mg TAB PO ONE (20:45)
[2019-04-14] MEDS ORDERED: HYDROcodone/acetaminophen 10/325mg tab PO ONE (20:45)
[2019-04-14 20:54] VITALS: BP 127/66
== END 2019-04-14 20:45 | disposition home or self-care (01) ==
LOC: ER 16:55
DX: S30.1XXA Contusion of abdominal wall, initial encounter (principal); L03.314 Cellulitis of groin; R53.1 Weakness; R50.9 Fever, unspecified; I48.91 Unspecified atrial fibrillation; I50.9 Heart failure, unspecified; I11.0 Hypertensive heart disease with heart failure; K21.9 Gastro-esophageal reflux disease without esophagitis; E11.9 Type 2 diabetes mellitus without complications; Z79.01 Long term (current) use of anticoagulants; Z95.0 Presence of cardiac pacemaker; Z79.899 Other long term (current) drug therapy; Z79.4 Long term (current) use of insulin; Z79.2 Long term (current) use of antibiotics; Z98.61 Coronary angioplasty status; Z85.038 Personal history of other malignant neoplasm of large intestine; Z98.890 Other specified postprocedural states; Z90.49 Acquired absence of other specified parts of digestive tract; X58.XXXA Exposure to other specified factors, initial encounter; Y93.89 Activity, other specified; Y92.89 Other specified places as the place of occurrence of the external cause; Y99.8 Other external cause status
CPT/HCPCS: 36415; 80053; 83605; 83735; 84145; 85025; 85610; 85730; 87040; 93926; 96365; 99283; J0696

== ENCOUNTER 2019-04-19 12:17 | Emergency (ER) | payer MEDICARE ==
[~2019-04-19] VITALS: Ht 180.3 cm; Wt 84.0 kg
[~2019-04-19 12:17] MED LIST changes: -AMIO200T40 PO; +AMIO200T61 PO; +CEPH-572 PO; -ERGO400C; +ERGO400C PO
[2019-04-19 13:05] LABS: BASOPHILS # (AUTO) 0.1 X10'3 (0-0.2); BASOPHILS % (AUTO) 0.7 % (0-1); EOSINOPHILS % (AUTO) 0.2 % (0-6); HEMATOCRIT 35.4 % (42.0-52.0); HEMOGLOBIN 11.9 g/dl (14.0-17.9); LYMPHOCYTES # (AUTO) 1.2 X10'3 (1.1-4.8); LYMPHOCYTES % (AUTO) 9.4 % (21-51); MEAN CORPUSCULAR HEMOGLOBIN 32.2 PG (27.0-31.0); MEAN CORPUSCULAR HGB CONC 33.8 g/dL (33.0-36.5); MEAN CORPUSCULAR VOLUME 95.3 FL (78-98); MEAN PLATELET VOLUME 7.3 FL (7.4-10.4); MONOCYTES % (AUTO) 8.2 % (2-12); NEUTROPHILS # (AUTO) 10.4 X10'3 (1.8-7.7); NEUTROPHILS % (AUTO) 81.5 % (42-75); PLATELET COUNT 261 X10'3 (140-440); RED BLOOD COUNT 3.71 X10'6 (4.70-6.10); RED CELL DISTRIBUTION WIDTH 14.5 % (11.5-14.5); WHITE BLOOD COUNT 12.7 X10'3 (4.5-11.0)
[2019-04-19 13:16] LABS: ALANINE AMINOTRANSFERASE 34 U/L (12-78); ALBUMIN/GLOBULIN RATIO 0.5 (1.1-1.5); ALKALINE PHOSPHATASE 58 IU/L (46-116); ANION GAP 8 (8-16); ASPARTATE AMINO TRANSFERASE 17 U/L (10-37); BILIRUBIN,TOTAL 0.8 MG/DL (0.1-1.0); BLOOD UREA NITROGEN 11 MG/DL (7-18); BUN/CREATININE RATIO 14.3 (5.4-32.0); CALCIUM 8.3 MG/DL (8.5-10.1); CHLORIDE 99 MMOL/L (99-107); CREATININE 0.77 MG/DL (0.60-1.10); GLUCOSE 207 MG/DL (70-104); POTASSIUM 4.1 MMOL/L (3.5-5.1); SODIUM 132 MMOL/L (135-145); TOTAL CARBON DIOXIDE 24.6 MMOL/L (24-32); TOTAL PROTEIN 5.9 G/DL (6.4-8.2); eGFR > 90 ML/MIN
[2019-04-19] MEDS ORDERED: phytonadione inj. 2.5 MG in normal saline 100ml IV soln 99.75 ML IV ONE (14:30)
[2019-04-19] MEDS ORDERED: Thrombin (Bovine) 5,000 unit vial TP ONE (14:40)
[2019-04-19 15:05] VITALS: BP 138/66
[2019-04-19 15:20] VITALS: BP 143/71
--- NOTE | 2019-04-19 15:25 | NUR ---
post thrombin injection procedure, RN informed to keep pt. on bed rest for 4 hours.
[2019-04-19 17:55] VITALS: BP 149/71
== END 2019-04-19 17:57 | disposition home or self-care (01) ==
LOC: ER 12:17
DX: I72.8 Aneurysm of other specified arteries (principal); L03.314 Cellulitis of groin; I48.91 Unspecified atrial fibrillation; I11.0 Hypertensive heart disease with heart failure; I50.9 Heart failure, unspecified; K21.9 Gastro-esophageal reflux disease without esophagitis; E11.9 Type 2 diabetes mellitus without complications; Z79.01 Long term (current) use of anticoagulants; Z85.038 Personal history of other malignant neoplasm of large intestine; Z95.0 Presence of cardiac pacemaker; Z98.890 Other specified postprocedural states; Z79.2 Long term (current) use of antibiotics; Z79.4 Long term (current) use of insulin
CPT/HCPCS: 36002; 36415; 76942; 80053; 85025; 85610; 93926; 96365; 99285; J3430; 99284

== ENCOUNTER 2019-04-25 09:59 | Inpatient (IN) | payer MEDICARE ==
[~2019-04-25] VITALS: Ht 177.8 cm; Wt 79.4 kg
[2019-04-25] VITALS (12 sets, daily range): BP systolic 128–149; BP diastolic 39–57
[2019-04-25] MEDS ORDERED: normal saline 1000ML IV soln IVB ONE (10:05)
--- NOTE | 2019-04-25 10:07 | NUR ---
pt's left groin is bleeding. pressure is being applied and new packing applied. Addendum: 04/25/19 at 1010 by RWILCOX dressing is surgicell, gauze, and sandbag and foam tape.
--- NOTE | 2019-04-25 10:15 | NUR ---
2 PACKS OF SURGICELL, 4X4 GAUZE AND FOAM TAPE APPLIED AFTER CONTINUOUS PRESSURE HELD IN A "FROG LEG" FASHION BLEEDING CONTROLLED AT THIS TIME PER EMS: EMS PACKED WOUND INTERNALLY AND EXTERNALLY COPIUOS BLOOD LOSS, DIAPER SOAKED, PUDDLE OF SOAKED BEDDING ABOUT 3 X 3 FEET DRIPPING WET 5 LB SANDBAG APPLIED AND CROSS TAPED OVER DRESSING
[2019-04-25] MEDS ORDERED: iohexol 350 MG/ML 50ML vial IV ONE (10:26)
[2019-04-25 10:31] LABS: ISTAT HGB 11.9 g/dl (14.0-18.0); ISTAT IONIZED CALCIUM 1.11 mmol/L (1.03-1.32); ISTAT K 3.9 mmol/L (3.5-5.1)
[2019-04-25 10:35] LABS: BASOPHILS # (AUTO) 0.1 X10'3 (0-0.2); BASOPHILS % (AUTO) 0.5 % (0-1); EOSINOPHILS # (AUTO) 0.1 X10'3 (0-0.9); EOSINOPHILS % (AUTO) 0.3 % (0-6); HEMATOCRIT 35.9 % (42.0-52.0); HEMOGLOBIN 11.8 g/dl (14.0-17.9); LYMPHOCYTES # (AUTO) 5.2 X10'3 (1.1-4.8); LYMPHOCYTES % (AUTO) 22.7 % (21-51); MEAN CORPUSCULAR HGB CONC 32.9 g/dL (33.0-36.5); MEAN PLATELET VOLUME 7.9 FL (7.4-10.4); MONOCYTES % (AUTO) 8.7 % (2-12); NEUTROPHILS # (AUTO) 15.6 X10'3 (1.8-7.7); NEUTROPHILS % (AUTO) 67.8 % (42-75); PLATELET COUNT 451 X10'3 (140-440); RED CELL DISTRIBUTION WIDTH 14.6 % (11.5-14.5)
[2019-04-25 10:46] LABS: PARTIAL THROMBOPLASTIN TIME 34 SECONDS (22-32)
[2019-04-25 10:47] LABS: ALANINE AMINOTRANSFERASE 46 U/L (12-78); ALBUMIN 2.1 G/DL (3.4-5.0); ALBUMIN/GLOBULIN RATIO 0.5 (1.1-1.5); ALKALINE PHOSPHATASE 58 IU/L (46-116); ANION GAP 13 (8-16); ASPARTATE AMINO TRANSFERASE 26 U/L (10-37); BILIRUBIN,TOTAL 0.7 MG/DL (0.1-1.0); BLOOD UREA NITROGEN 12 MG/DL (7-18); BUN/CREATININE RATIO 9.2 (5.4-32.0); CALCIUM 8.7 MG/DL (8.5-10.1); CHLORIDE 99 MMOL/L (99-107); CREATININE 1.31 MG/DL (0.60-1.10); GLUCOSE 377 MG/DL (70-104); SODIUM 137 MMOL/L (135-145); TOTAL CARBON DIOXIDE 24.8 MMOL/L (24-32); TOTAL PROTEIN 6.6 G/DL (6.4-8.2); eGFR 52 ML/MIN
[2019-04-25] MEDS ORDERED: WARF1TAB PO (10:54)
[2019-04-25] MEDS ORDERED: FURO40TA4 PO (10:54)
[2019-04-25] MEDS ORDERED: LANTUS SQ ×2 (10:54→12:06)
[2019-04-25] MEDS ORDERED: heparin 10,000 units/1 ML INJ ONE (10:59)
[2019-04-25] MEDS ORDERED: ceFAZolin 1000mg inj ONE (11:00)
[2019-04-25] MEDS ORDERED: iohexol 300 MG/1 ML 50ml polymer ONE (11:00)
--- NOTE | 2019-04-25 11:00 | NUR ---
MD Vu at bedside assessing the pt's condition.
[2019-04-25 11:11] LABS: TOTAL CELLS COUNTED 100
[2019-04-25 11:15] LABS: ACANTHOCYTES FEW; BURR CELLS 1+; LARGE PLATELETS FEW; PLATELET ESTIMATE INCREASED; POLYCHROMASIA FEW; TOXIC GRANULATION 1+; TOXIC VACUOLATION FEW
[2019-04-25] MEDS ORDERED: normal saline 1000ml 1,000 ML IV ONE (11:20)
[2019-04-25] MEDS ORDERED: morphine 4 MG/ML inj SYRINge IV ONE (11:20)
--- NOTE | 2019-04-25 11:28 | NUR ---
WITH PATIENT TO CT SCANNER MONITORED ON SAILAJA WITH DR STEVENS, NO ACTIVE BLEEDING NOTED, PATIENT ABLE TO FEEL BOTH LOWER LEGS TO FEET AND DISCRIMINATE BETWEEN AREAS ON SAME LEG AND BETWEEN LEGS, SURGEON AWARE THAT NO PEDAL/PT PULSES BILATERALLY, RIGHT FOOT KAITARA TARAKA 5 SECONDS, LEFT FOOT OVER 6 SECONDS, BOTH LOWER LEGS EQUALLY COLD
--- NOTE | 2019-04-25 11:30 | NUR ---
blood consent signed but not to be given just yet per Dr. Thayer,called blood bank,spoke to Isaias requesting to get 4 units of blood ready per Dr. Myers.
[2019-04-25] MEDS ORDERED: INSULIN LISPRO (11:35)
[2019-04-25] MEDS ORDERED: LACT1CAP7 PO (11:35)
[2019-04-25] MEDS ORDERED: LACT10SO PO (11:35)
[2019-04-25] MEDS ORDERED: IPRA3AMP9 IH (11:35)
[2019-04-25] MEDS ORDERED: CEPH-572 PO (11:35)
[2019-04-25] MEDS ORDERED: BISA10SU60 RC (11:35)
[2019-04-25] MEDS ORDERED: POTA20PA40 PO (11:35)
[2019-04-25] MEDS ORDERED: BUDE10.22 INH (11:35)
[2019-04-25] MEDS ORDERED: GLUC1KIT IM (11:35)
[2019-04-25] MEDS ORDERED: ALB0.5UD IH (11:35)
--- NOTE | 2019-04-25 11:35 | NUR ---
RIGHT GROIN TRIPLE LUMEN PLACED BY DR LIMON FOR CTANGIO PATIENT HAS A RIGHT SHOULDER IO PLACED BY EMS AND A RIGHT FOOT SL 20 G PLACED IN THE ER
[2019-04-25] MEDS ORDERED: phytonadione inj. 10 MG in normal saline 100ml IV soln 99 ML IV ONE (11:55)
--- NOTE | 2019-04-25 11:56 | NUR ---
Patient up going to OR
[2019-04-25] MEDS ORDERED: SENN-162 PO (12:06)
[2019-04-25] MEDS ORDERED: ACET-2119 PO (12:06)
[2019-04-25] MEDS ORDERED: POLY17PO10 PO (12:06)
[2019-04-25] MEDS ORDERED: ceFAZolin inj. 2,000 MG in dextrose 5%-water 100 ML IV ONE (12:15)
[2019-04-25] MEDS ORDERED: fentaNYL/PF 50MCG/1 ML 2ML syringe ONE ×2 (12:29→13:55)
[2019-04-25] MEDS ORDERED: rocuronium 10mg/ml inj IV ONE ×2 (12:33→12:38)
[2019-04-25] MEDS ORDERED: potassium Cl 2 mEq/ml inj IV ONE (12:33)
[2019-04-25] MEDS ORDERED: sevoflurane 250ml liquid IH ONE (12:33)
--- NOTE | 2019-04-25 12:35 | NUR ---
PATIENT TRANSPORTED FROM CT SCAN WITH DR STEVENS AND MYSELF TO PACU PER MD THRUOUT STAY PATIENT AXOX4, NOW PAIN IMPROVED AFTER 2 MG MORPHINE, RECEIVED 1.5 LITERS NS IN ER BEDSIDE REPORT TO PAPER PRODUCTS PRINTER ZAMZAM PA SPOKE TO DR STEVENS AT BEDSIDE IN PACU [phone] PA
--- NOTE | 2019-04-25 12:36 | NUR ---
VSS, SR, SANDBAG WAS REMOVED IN CT SCAN, NO ACTIVE BLEEDING, PATIENT REMAINS AXOX4, IN ROOM IN PACU
[2019-04-25] MEDS ORDERED: LIDOcaine 2% (20mg/ml) 5ml vial ONE (12:38)
[2019-04-25] MEDS ORDERED: etomidate 2mg/ml inj. ONE (12:38)
[2019-04-25] MEDS ORDERED: piperacillin/tazo 4.5gm/100ml IVPB IV ONE (13:40)
[2019-04-25] MEDS ORDERED: iohexol 350MG/ML 100ml bottle IV ONE (13:54)
[2019-04-25 14:36] LABS: ISTAT ANION GAP 14 (8-12); ISTAT BUN 12 mg/dL (6-19); ISTAT CL 100 mmol/L (99-107); ISTAT CREATININE 0.7 mg/dL (0.8-1.3); ISTAT GLUCOSE 317 mg/dL (70-104); ISTAT HGB 7.5 g/dl (14.0-18.0); ISTAT Hct 22 %PCV (42-52); ISTAT IONIZED CALCIUM 1.08 mmol/L (1.03-1.32); ISTAT K 4.2 mmol/L (3.5-5.1); ISTAT NA 136 mmol/L (135-145); ISTAT TOTAL CO2 22 mmol/L (24-32); ISTAT eGFR > 90 ML/MIN; POC BUN/CREATININE RATIO 17.1 (5.4-32.0)
[2019-04-25] MEDS ORDERED: ringers solution, lacted 1,000 ML IV SCH (15:23)
[2019-04-25] MEDS ORDERED: ondansetron/PF 4mg/2ml inj IV PRN (15:25)
[2019-04-25] MEDS ORDERED: morphine 4 MG/ML inj SYRINge IV PRN (15:25)
[2019-04-25] MEDS ORDERED: HYDROmorphone inj. 0.5 MG/0.5 ML DISP.SYRIN IV PRN ×2 (15:25)
[2019-04-25] MEDS ORDERED: insulin regular, human vial - multi-dose ONE (15:36)
[2019-04-25] MEDS ORDERED: gentamicin 40 MG/1 ML inj ONE (15:47)
[2019-04-25] MEDS ORDERED: clindamycin phosphate 150mg/ml inj. ONE (15:47)
[2019-04-25 16:10] LABS: ISTAT ANION GAP 13 (8-12); ISTAT BUN 11 mg/dL (6-19); ISTAT CL 104 mmol/L (99-107); ISTAT CREATININE 0.7 mg/dL (0.8-1.3); ISTAT GLUCOSE 283 mg/dL (70-104); ISTAT HGB 7.8 g/dl (14.0-18.0); ISTAT Hct 23 %PCV (42-52); ISTAT K 3.5 mmol/L (3.5-5.1); ISTAT NA 139 mmol/L (135-145); ISTAT TOTAL CO2 22 mmol/L (24-32); ISTAT eGFR > 90 ML/MIN; POC BUN/CREATININE RATIO 15.7 (5.4-32.0)
[2019-04-25] MEDS: HYDROmorphone/NS 1 mg/ml CADD 50 ML IV SCH ×4 (17:10→22:41)
[2019-04-25] MEDS ORDERED: naloxone 0.4 mg/ml inj IV PRN (17:10)
[2019-04-25] MEDS ORDERED: CADD PCA waste documentation MC PRN (17:10)
--- NOTE | 2019-04-25 17:10 | NUR ---
Admitted to ICU rm 2044 for recovery, accompanied by DIRECTOR BROADCAST and anesthesiologist. Initial assessment done and recorded on arrival, Left radial art line air zeroed and calibrated with good wave form, R Jugular with LR running. Right should IO, R foot line and R groin triple lumen all flushed and capped per orders. Dr. Calderon in attendance, wound vac setting changed to 75 per order, accucheck done 216 7 units regular insulin given by anesthesia will re check in 1 hr. Stable on admission.
[2019-04-25] MEDS: niCARdipine I.V. 50 MG in normal saline 250ml IV soln 230 ML IV SCH (17:35)
--- NOTE | 2019-04-25 18:10 | NUR ---
Discharge criteria met, hand off to HEALTH POLICY NURSE.
--- NOTE | 2019-04-25 18:30 | NUR ---
Patient in room ICU 2044. I have received report from JOHN Cabrera and had the opportunity to ask questions and assume patient care.
[2019-04-25 18:40] LABS: PARTIAL THROMBOPLASTIN TIME 52 SECONDS (22-32)
[2019-04-25] MEDS ORDERED: ondansetron/PF 4mg/2ml inj ONE (18:42)
[2019-04-25] MEDS ORDERED: phenylephrine 10mg/ml inj. ONE (18:42)
[2019-04-25] MEDS ORDERED: glycopyrrolate 0.2mg/ml inj ONE (18:42)
[2019-04-25] MEDS ORDERED: neostigmine methylsulfate 1 MG/ML 10ml vial ONE (18:42)
[2019-04-25] MEDS: Potassium Cl inj 20 MEQ in ringers solution, lacted 1,000 ML IV SCH (19:17)
[2019-04-25] MEDS ORDERED: dextrose ORAL solution 15 GM/59 ML bottle PO PRN ×2 (19:40)
[2019-04-25] MEDS ORDERED: dextrose 50%-water 50ml dispensing syringe IV PRN ×2 (19:40)
[2019-04-25] MEDS ORDERED: MESSAGE TO PHARMACY PO ONE (19:40)
[2019-04-25] MEDS ORDERED: glucagon, human recombinant 1mg kit SUBCUT PRN (19:40)
[2019-04-25] MEDS: insulin Lispro (HumaLOG) vial - multi-dose SQ SCH (20:43)
[2019-04-25] MEDS: insulin glargine (Lantus) pen - multi-dose SQ SCH (20:44)
--- NOTE | 2019-04-25 21:02 | NUR ---
Patient beginning to wake more after general anesthesia, is oriented to person and place, states it is 1998. Patient denies pain at this time, will continue to monitor.
--- NOTE | 2019-04-25 23:20 | NUR ---
During assessment of patient wounds, patient's abdomen found to be very distended and hard to the touch. Patient states that he is in 8/10 pain with palpation of his abdomen. VSS stable at this time. Dr Calderon notified of new finding, CT of abdomen w/o contrast was ordered at this time.
[2019-04-25] MEDS: piperacillin/tazo 3.375gm/50ml 50 ML IV SCH (23:59)
[2019-04-26] VITALS (22 sets, daily range): BP systolic 91–140; BP diastolic 32–50
--- NOTE | 2019-04-26 00:45 | NUR ---
Patient resistive to care. Patient yelling to stop touching him as I was trying to assess his wounds. Patient educated that it is necessary that I assess his wounds frequently throughout the night. Patient began to threaten to swing at me. Charge nurse Ruth entered room as patient began to raise his hand and as he continued to yell that he was going to hit us if we do not leave him alone. Patient noncompliant with turning and any kind of assessment, have been unable to place optifoam on his sacrum and assess his skin on the back side. Will leave patient to calm down and rest and will reattempt education of the need to assess him frequently.
[2019-04-26] MEDS: HYDROmorphone/NS 1 mg/ml CADD 50 ML IV SCH ×12 (01:00→23:00)
[2019-04-26] MEDS: Potassium Cl inj 20 MEQ in ringers solution, lacted 1,000 ML IV SCH ×3 (01:15→19:17)
--- NOTE | 2019-04-26 01:25 | NUR ---
Accompanied by JOHN Rizo to check patient's pulse. Was able to check and verify that pulses are present. However patient then threatened to hit us and began yelling and cursing at us to leave him alone.
[2019-04-26 02:41] LABS: ALBUMIN 1.8 G/DL (3.4-5.0); ANION GAP 6 (8-16); BLOOD UREA NITROGEN 12 MG/DL (7-18); BUN/CREATININE RATIO 15.6 (5.4-32.0); CALCIUM 7.7 MG/DL (8.5-10.1); CHLORIDE 112 MMOL/L (99-107); CREATININE 0.77 MG/DL (0.60-1.10); GLUCOSE 137 MG/DL (70-104); POTASSIUM 3.9 MMOL/L (3.5-5.1); SODIUM 143 MMOL/L (135-145); eGFR > 90 ML/MIN
[2019-04-26 02:44] LABS: BASOPHILS # (AUTO) 0.1 X10'3 (0-0.2); EOSINOPHILS % (AUTO) 0.1 % (0-6); MEAN PLATELET VOLUME 7.4 FL (7.4-10.4)
[2019-04-26 02:46] LABS: BASOPHILS % (AUTO) 0.3 % (0-1); LYMPHOCYTES # (AUTO) 1.9 X10'3 (1.1-4.8); LYMPHOCYTES % (AUTO) 9.5 % (21-51); MEAN CORPUSCULAR HEMOGLOBIN 31.2 PG (27.0-31.0); MEAN CORPUSCULAR HGB CONC 34.4 g/dL (33.0-36.5); MEAN CORPUSCULAR VOLUME 90.6 FL (78-98); MONOCYTES # (AUTO) 2.2 X10'3 (0-0.9); MONOCYTES % (AUTO) 10.7 % (2-12); NEUTROPHILS # (AUTO) 16.1 X10'3 (1.8-7.7); NEUTROPHILS % (AUTO) 79.4 % (42-75); PLATELET COUNT 251 X10'3 (140-440); RED CELL DISTRIBUTION WIDTH 17.7 % (11.5-14.5); WHITE BLOOD COUNT 20.3 X10'3 (4.5-11.0)
[2019-04-26] MEDS: piperacillin/tazo 3.375gm/50ml 50 ML IV SCH ×4 (03:27→23:33)
[2019-04-26] MEDS: niCARdipine I.V. 50 MG in normal saline 250ml IV soln 230 ML IV SCH ×2 (03:28→13:35)
--- NOTE | 2019-04-26 06:30 | NUR ---
Problems reprioritized. Patient report given, questions answered & plan of care reviewed with JOHN Hare.
--- NOTE | 2019-04-26 08:15 | NUR ---
IO LINE TO RIGHT SHOULDER DC'D LEFT WRIST ART LINE DC'D RIGHT FOOT PIV DC'D (OCCLUDED) THESE INTERVENTIONS DONE WITH THE ASSISTANCE OF KATJA KNOX RN
[2019-04-26] MEDS ORDERED: vancomycin/NS 1 GM ADD-VANTAGE 250 ML IV SCH (09:05)
--- NOTE | 2019-04-26 09:15 | NUR ---
PATIENT BED BATH AND LINEN CHANGE PATIENT ALLOWED NURSING STAFF TO CLEAN HIM UP, CHANGE LINENS AND GOWN AND PROVIDE JIM CARE AT THIS TIME. HE IS COMPLIANT AND CALM. WILL CONTINUE TO MONITOR.
--- NOTE | 2019-04-26 09:45 | NUR ---
ADVANCED DIET TO CLEAR LIQUIDS PER DR. IVONNE CORONADO AT BEDSIDE AT THIS TIME
--- NOTE | 2019-04-26 09:50 | NUR ---
Initial: Pt admit s/p emergent iliofemoral bypass w/ wound vac to L groin. Hx DM A1C 7.5; previously seen by LILA 04/11 admit. Currently NPO pending diet advancement. Will monitor for additional protein needs pending diet advancement and PO hx this admit. Rec: 1. advance diet per MD to carb controlled 2. monitor for ONS needs once PO 3. MVI for wound healing once PO 4. wt per rx Addendum: 04/26/19 at [address] Amended: Links added.
[2019-04-26] MEDS: docusate sod 100mg capsule PO SCH ×2 (12:04→20:20)
[2019-04-26] MEDS: methylnaltrexone br 12mg/0.6ml inj***SubQ only SQ SCH (12:04)
--- NOTE | 2019-04-26 15:05 | NUR ---
DR. STEVENS AT BEDSIDE RN RECEIVED ORDERS TO- DECREASE FLUIDS TO 100ML/HOUR START BASAL RATE FOR DILAUDID CADD @ 0.1MG/HOUR PT EVAL AND TREAT DR. STEVENS MADE AWARE OF DR. CORONADO'S NEW ORDERS FOR RELISTOR, COLACE, AND VANCO, AND COMPLETED MEDICATION REC AT THIS TIME. FAXED TO PHARMACY.
[2019-04-26] MEDS ORDERED: sennosides 8.6mg tablet PO PRN (15:35)
[2019-04-26] MEDS ORDERED: glucagon, human recombinant 1mg kit IM PRN (15:35)
[2019-04-26] MEDS ORDERED: lactulose 20gm/30ml cup PO PRN (15:35)
[2019-04-26] MEDS ORDERED: bisacodyl 10mg suppository rectal RC PRN (15:35)
[2019-04-26] MEDS ORDERED: ipratropium/albuterol 3ml nebule IH PRN (15:35)
[2019-04-26] MEDS ORDERED: albuterol 2.5 mg/0.5ml nebule NEB PRN (15:35)
--- NOTE | 2019-04-26 18:22 | NUR ---
Patient in room ICU 2044. I have received report from JOHN Hare and had the opportunity to ask questions and assume patient care.
[2019-04-26] MEDS: budesonide 0.5mg/2ml UD nebule IH SCH (19:34)
[2019-04-26] MEDS: albuterol 2.5 MG/3 ML nebule NEB SCH (19:34)
[2019-04-26] MEDS ORDERED: [UNRECOGNIZED DRUG - OTHER] PO SCH (20:00)
[2019-04-26] MEDS ORDERED: LACTOBACILLUS ACIDOPHILUS PO SCH (20:00)
[2019-04-26] MEDS ORDERED: non-formulary drug (Budesonide/Formoterol Fumarate (Symbicort 80-4.5 Mcg Inhaler) 2 PUFFS) INH SCH (20:00)
[2019-04-26] MEDS: lactobacillus rhamnosus 10,000 MMU CELLS/CAPSULE PO SCH (20:20)
[2019-04-26] MEDS: VANCOmycin 1250MG/NS 250ml Bag 250 ML IV SCH (20:20)
[2019-04-26] MEDS: insulin Lispro (HumaLOG) vial - multi-dose SQ SCH (20:46)
[2019-04-26] MEDS: insulin glargine (Lantus) pen - multi-dose SQ SCH (20:47)
[2019-04-26] MEDS ORDERED: insulin glargine (Lantus) pen - multi-dose SQ SCH ×2 (21:00)
[2019-04-26] MEDS ORDERED: INSULIN DEGLUDEC 42 UNIT SQ SCH (21:00)
--- NOTE | 2019-04-26 22:53 | NUR ---
Patient refusing bed bath. He has been offered several times. When asked this last time, he threatened to hit me if I didn't leave him alone. Patient was also complaining of back pain and I asked if he wanted to be repositioned, patient got increasingly agitated and asked me to leave him alone. Will attempt to reposition at a later time.
--- NOTE | 2019-04-26 23:47 | NUR ---
Patient beginning to pull at things, he pulled off his oxygen and then pulled at his central line in the right IJ. Patient was told to stop and he stopped but then began to pull on his blood pressure cuff. Patient becomes increasingly more agitated when talked to or educated. Charge nurse Darnell made aware.
[2019-04-27] VITALS (24 sets, daily range): BP systolic 103–134; BP diastolic 33–85
[2019-04-27] MEDS: HYDROmorphone/NS 1 mg/ml CADD 50 ML IV SCH ×9 (01:00→17:00)
[2019-04-27 03:05] LABS: BASOPHILS % (AUTO) 0.3 % (0-1); EOSINOPHILS % (AUTO) 0.1 % (0-6); HEMOGLOBIN 8.3 g/dl (14.0-17.9); MONOCYTES # (AUTO) 1.8 X10'3 (0-0.9)
[2019-04-27 03:07] LABS: BASOPHILS # (AUTO) 0.1 X10'3 (0-0.2); HEMATOCRIT 24.5 % (42.0-52.0); LYMPHOCYTES # (AUTO) 1.8 X10'3 (1.1-4.8); LYMPHOCYTES % (AUTO) 10.7 % (21-51); MEAN CORPUSCULAR HGB CONC 33.9 g/dL (33.0-36.5); MEAN CORPUSCULAR VOLUME 91.3 FL (78-98); MEAN PLATELET VOLUME 7.3 FL (7.4-10.4); MONOCYTES % (AUTO) 10.6 % (2-12); NEUTROPHILS # (AUTO) 13.2 X10'3 (1.8-7.7); NEUTROPHILS % (AUTO) 78.3 % (42-75); PLATELET COUNT 226 X10'3 (140-440); RED BLOOD COUNT 2.69 X10'6 (4.70-6.10); RED CELL DISTRIBUTION WIDTH 17.3 % (11.5-14.5); WHITE BLOOD COUNT 16.8 X10'3 (4.5-11.0)
[2019-04-27 03:11] LABS: ALBUMIN 1.5 G/DL (3.4-5.0); ANION GAP 5 (8-16); BLOOD UREA NITROGEN 8 MG/DL (7-18); BUN/CREATININE RATIO 10.8 (5.4-32.0); CALCIUM 7.7 MG/DL (8.5-10.1); CHLORIDE 110 MMOL/L (99-107); CREATININE 0.74 MG/DL (0.60-1.10); GLUCOSE 105 MG/DL (70-104); POTASSIUM 3.5 MMOL/L (3.5-5.1); SODIUM 142 MMOL/L (135-145); TOTAL CARBON DIOXIDE 27.5 MMOL/L (24-32); eGFR > 90 ML/MIN
[2019-04-27 05:06] LABS: ISTAT ANION GAP 13 (8-12); ISTAT BUN 11 mg/dL (6-19); ISTAT CL 106 mmol/L (99-107); ISTAT CREATININE 0.7 mg/dL (0.8-1.3); ISTAT GLUCOSE 216 mg/dL (70-104); ISTAT HGB 8.8 g/dl (14.0-18.0); ISTAT Hct 26 %PCV (42-52); ISTAT IONIZED CALCIUM 1.11 mmol/L (1.03-1.32); ISTAT K 3.7 mmol/L (3.5-5.1); ISTAT NA 141 mmol/L (135-145); ISTAT TOTAL CO2 22 mmol/L (24-32); ISTAT eGFR > 90 ML/MIN; POC BUN/CREATININE RATIO 15.7 (5.4-32.0)
[2019-04-27] MEDS: Potassium Cl inj 20 MEQ in ringers solution, lacted 1,000 ML IV SCH ×2 (05:51→14:09)
--- NOTE | 2019-04-27 05:57 | NUR ---
Unable to check pulses on right foot, patient began increasingly agitated, yelling and beginning to kick his foot. Tried to reorient and educate patient as well as had JOHN Haskins try but patient refused to let me check his foot. Left foot was checked before the agitation and found with the doppler.
--- NOTE | 2019-04-27 06:18 | NUR ---
Problems reprioritized. Patient report given, questions answered & plan of care reviewed with JOHN Rodríguez.
--- NOTE | 2019-04-27 06:27 | NUR ---
Received report assumed care, pt resting in bed confused but easily reoriented. Will cont to monitor
[2019-04-27] MEDS: albuterol 2.5 MG/3 ML nebule NEB SCH ×4 (07:05→19:00)
[2019-04-27] MEDS: budesonide 0.5mg/2ml UD nebule IH SCH ×2 (07:05→19:16)
[2019-04-27] MEDS: cyanocobalamin 500mcg tablet PO SCH (07:22)
[2019-04-27] MEDS: amiodarone 200mg tablet PO SCH (07:22)
[2019-04-27] MEDS: docusate sod 100mg capsule PO SCH ×2 (07:22→20:05)
[2019-04-27] MEDS: VANCOmycin 1250MG/NS 250ml Bag 250 ML IV SCH (07:22)
[2019-04-27] MEDS: piperacillin/tazo 3.375gm/50ml 50 ML IV SCH (07:22)
[2019-04-27] MEDS: lactobacillus rhamnosus 10,000 MMU CELLS/CAPSULE PO SCH ×2 (07:22→20:05)
[2019-04-27] MEDS: ceFAZolin 1GM/D5W- ADD-VANTAGE 50 ML IV SCH ×2 (11:36→19:43)
[2019-04-27] MEDS: nafcillin inj 2 GM in normal saline 100ml IV soln 100 ML IV SCH ×3 (12:15→20:18)
[2019-04-27] MEDS: insulin Lispro (HumaLOG) vial - multi-dose SQ SCH ×2 (13:03→21:23)
--- NOTE | 2019-04-27 14:22 | NUR ---
sales order clerk at bedside to change wound vac
--- NOTE | 2019-04-27 15:25 | NUR ---
WOUND VAC EDUCATION PROVIDED BY WOUND CARE 1. Patient instructed to call the Wound Center or their Home Health Agency immediately if: * They notice a change in the color or amount of the fluid in the canister. * Their wound looks more red than usual or has a foul smell. * The skin around their wound looks reddened or irritated. * The dressing feels loose or appears to be loose. * They experience any increase or changes in their pain. * The alarm will not turn off. 2. Patient instructed that they should not be disconnected from suction for more than 2 hours at a time. * If they are not able to get the suction back on, they need to remove the dressing and take all of the foam out of the wound. * Then moisten sterile gauze with normal saline and place on/in the wound. * Change the dressing once a day until arrangements have been made to replace the wound vac dressing. 3. Patient instructed to turn the wound vac machine OFF and call 911 or go to the ED immediately if their canister fills rapidly with blood. 4. If any of these occur while in the hospital tell a nurse immediately. Addendum: 04/27/19 at 1525 by David Lang RN Amended: Links added.
--- NOTE | 2019-04-27 18:30 | NUR ---
patients 's name/number, russ reid [id number]
--- NOTE | 2019-04-27 18:32 | NUR ---
recieved report and assumed care from haley farrell, patient in bed covers on eyes open watching television no observable s/s of acute stress at this time Addendum: 04/27/19 at 1834 by Chuy Henson RN recieved report and assumed care from Anne farrell, patient in bed covers on eyes open watching television no observable s/s of acute stress at this time dis regard first note
--- NOTE | 2019-04-27 19:30 | NUR ---
patient refusing dinner tried numerous times to persuade patient to eat dinner states " i am fine just leave me alone."
[2019-04-27] MEDS: insulin glargine (Lantus) pen - multi-dose SQ SCH (21:26)
--- NOTE | 2019-04-27 21:50 | NUR ---
dr. sweeney in to evaluate patient , after conversing with patient dr. sweeney stated he will be moving patient to medical floor tomorrow in the a.m. patient is currently in bed covers on eyes open watching television rr even un labored no observable s/s of acute stress at this time
[2019-04-28] VITALS (21 sets, daily range): BP systolic 107–149; BP diastolic 41–91
[2019-04-28] MEDS ORDERED: ceFAZolin 1GM/D5W- ADD-VANTAGE 50 ML IV SCH (00:21)
[2019-04-28] MEDS: nafcillin inj 2 GM in normal saline 100ml IV soln 100 ML IV SCH ×3 (00:44→08:01)
--- NOTE | 2019-04-28 00:49 | NUR ---
patient in bed eyes closed rr even un labored no observable s/s of acute stress/pain at this time
[2019-04-28] MEDS: Potassium Cl inj 20 MEQ in ringers solution, lacted 1,000 ML IV SCH ×3 (01:48→20:51)
--- NOTE | 2019-04-28 04:10 | NUR ---
PATIENT IN BED SUPINE EYES OPEN RR EVEN UN LABORED NO OBSERVABLE S/S OF ACUTE STRESS AT THIS TIME
--- NOTE | 2019-04-28 04:11 | NUR ---
ARLENE NEFF PATIENT COOPERATIVE
[2019-04-28 04:45] LABS: BASOPHILS % (AUTO) 0.3 % (0-1); EOSINOPHILS % (AUTO) 0.1 % (0-6); HEMATOCRIT 26.9 % (42.0-52.0); LYMPHOCYTES # (AUTO) 1.2 X10'3 (1.1-4.8); LYMPHOCYTES % (AUTO) 9.5 % (21-51); MEAN CORPUSCULAR HEMOGLOBIN 30.5 PG (27.0-31.0); MEAN CORPUSCULAR HGB CONC 33.5 g/dL (33.0-36.5); MEAN CORPUSCULAR VOLUME 91.1 FL (78-98); MEAN PLATELET VOLUME 7.3 FL (7.4-10.4); MONOCYTES # (AUTO) 1.3 X10'3 (0-0.9); MONOCYTES % (AUTO) 10.3 % (2-12); NEUTROPHILS # (AUTO) 10.4 X10'3 (1.8-7.7); NEUTROPHILS % (AUTO) 79.8 % (42-75); PLATELET COUNT 235 X10'3 (140-440); RED BLOOD COUNT 2.96 X10'6 (4.70-6.10); RED CELL DISTRIBUTION WIDTH 17.2 % (11.5-14.5)
[2019-04-28 04:56] LABS: ALBUMIN 1.6 G/DL (3.4-5.0); ANION GAP 5 (8-16); BLOOD UREA NITROGEN 7 MG/DL (7-18); BUN/CREATININE RATIO 6.9 (5.4-32.0); CALCIUM 8.2 MG/DL (8.5-10.1); CHLORIDE 112 MMOL/L (99-107); CREATININE 1.01 MG/DL (0.60-1.10); GLUCOSE 99 MG/DL (70-104); POTASSIUM 3.3 MMOL/L (3.5-5.1); SODIUM 147 MMOL/L (135-145); TOTAL CARBON DIOXIDE 29.7 MMOL/L (24-32); eGFR 71 ML/MIN
--- NOTE | 2019-04-28 06:20 | NUR ---
SBAR TO EARL LOPEZ NO QUESTIONS OR CONCERNS AFTER REPORT
--- NOTE | 2019-04-28 06:25 | NUR ---
Patient in room ICU 2044. I have received report from Chuy LOPEZ and had the opportunity to ask questions and assume patient care.
[2019-04-28] MEDS ORDERED: VANCOMYCIN LEVEL IV ONE (07:30)
[2019-04-28] MEDS: budesonide 0.5mg/2ml UD nebule IH SCH ×2 (07:31→19:07)
[2019-04-28] MEDS: albuterol 2.5 MG/3 ML nebule NEB SCH ×4 (07:31→19:07)
[2019-04-28] MEDS: amiodarone 200mg tablet PO SCH (08:03)
[2019-04-28] MEDS: lactobacillus rhamnosus 10,000 MMU CELLS/CAPSULE PO SCH ×2 (08:03→20:40)
[2019-04-28] MEDS: cyanocobalamin 500mcg tablet PO SCH (08:03)
[2019-04-28] MEDS: methylnaltrexone br 12mg/0.6ml inj***SubQ only SQ SCH (08:03)
[2019-04-28] MEDS: docusate sod 100mg capsule PO SCH ×2 (08:03→20:40)
[2019-04-28] MEDS: magnesium hydroxide 30ml (MOM) UD suspension PO SCH ×2 (08:03→20:40)
[2019-04-28] MEDS: insulin Lispro (HumaLOG) vial - multi-dose SQ SCH ×3 (09:01→20:44)
[2019-04-28] MEDS ORDERED: potassium Cl 20 mEq SR tablet PO STA (09:20)
[2019-04-28 09:38] LABS: TOTAL CELLS COUNTED 100
[2019-04-28 09:40] LABS: PLATELET ESTIMATE NORMAL; TOXIC GRANULATION 3+
[2019-04-28 09:41] LABS: ANISOCYTOSIS 1+
[2019-04-28] MEDS ORDERED: polyvinyl alcohol ophthalmic drops 15ml bottle EACHEYE PRN (11:00)
[2019-04-28] MEDS ORDERED: heparin, porcine 5000 units/ml vial SQ SCH (11:02)
--- NOTE | 2019-04-28 11:09 | NUR ---
Wound consult: Pt has groin wound vac in place. PO remains low 0-25% and per in EMR dementia past 6 months. OK to advance to regular diet given low PO hx per MD; MD also approves ensure enlive TIDWM; dietary notified. Pending MD verification prior to sending on trays. DM/high protein eds not appropriate at this time. No BM yet this admit on colace and relistor. Will monitor for additional protein needs. Rec: 1. continue regular diet per MD; consider carb controlled if PO improves 2. ensure enlive TIDWM 3. MVI for wound healing once PO 4. wt per rx Addendum: 04/28/19 at [address] Amended: Links added.
--- NOTE | 2019-04-28 12:07 | NUR ---
Dr. Calderon contacted by telephone. Made aware of incresing redness to wound on L groin and increased tenderness to the touch. Dr. Calderon also made aware of the change in antibiotics per ID, Dr. Park, stop Ancef and nafcillin. Start Zosyn.
[2019-04-28 12:28] LABS: ALBUMIN 1.6 G/DL (3.4-5.0); ANION GAP 8 (8-16); BLOOD UREA NITROGEN 10 MG/DL (7-18); BUN/CREATININE RATIO 8.8 (5.4-32.0); CALCIUM 8.2 MG/DL (8.5-10.1); CHLORIDE 110 MMOL/L (99-107); CREATININE 1.14 MG/DL (0.60-1.10); GLUCOSE 181 MG/DL (70-104); POTASSIUM 3.3 MMOL/L (3.5-5.1); SODIUM 146 MMOL/L (135-145); TOTAL CARBON DIOXIDE 28.4 MMOL/L (24-32); eGFR 61 ML/MIN
[2019-04-28] MEDS: lactose-reduced food (Ensure Enlive) - 237ml bottle PO SCH ×2 (13:00→18:00)
--- NOTE | 2019-04-28 15:00 | NUR ---
Patient very aggressive with staff. Tore off SpO2 monitor, BP cuff and threw items at staff. Tried to removed nino and wound vac from groin. Had to be redirected multiple times, unable to take BP for a while. Will continue to monitor.
[2019-04-28] MEDS: piperacillin/tazo 3.375gm/50ml 50 ML IV SCH (15:06)
--- NOTE | 2019-04-28 18:15 | NUR ---
received report from Prosper farrell no questions or concerns after report.
--- NOTE | 2019-04-28 18:20 | NUR ---
Problems reprioritized. Patient report given, questions answered & plan of care reviewed with Chuy LOPEZ.
--- NOTE | 2019-04-28 18:33 | NUR ---
dr. sweeney at bedside verbalized to dc diesel engine operator pump and transfer to medical floor
--- NOTE | 2019-04-28 18:35 | NUR ---
dr. sweeney verbalized that i could put transfer orders in for medical floor with telemetry
--- NOTE | 2019-04-28 19:00 | NUR ---
patient in bed eyes open watching television rr even un labored no observable s/s of acute stress at this time
[2019-04-28] MEDS: insulin glargine (Lantus) pen - multi-dose SQ SCH (20:47)
--- NOTE | 2019-04-28 22:34 | NUR ---
patient in bed eyes open watching television rr even un labored no observable s/s of acute stress at this time
--- NOTE | 2019-04-28 23:48 | NUR ---
called report to Bryan LOPEZ patient will be going to room 357A upon finishing SBAR,Bryan LOPEZ verbalized he has no other questions or concerns at this time
[2019-04-29] VITALS: BP 110/60
--- NOTE | 2019-04-29 | NUR ---
REPORT FROM ALEX RECEIVED, NO CHANGE TO PT PHYSICAL ASSESSMENT DOCUMENTED BY ALEX. Addendum: 04/29/19 at 0213 by Ted Peace RN Amended: Links added.
[2019-04-29] MEDS ORDERED: albuterol 2.5 MG/3 ML nebule NEB PRN (00:24)
[2019-04-29] MEDS: piperacillin/tazo 3.375gm/50ml 50 ML IV SCH ×3 (00:30→16:14)
[2019-04-29] MEDS: heparin, porcine 5000 units/ml vial SQ SCH ×2 (02:31→13:20)
[2019-04-29 04:00] VITALS: BP 135/78
[2019-04-29 05:35] LABS: BASOPHILS % (AUTO) 0.6 % (0-1); EOSINOPHILS # (AUTO) 0.1 X10'3 (0-0.9); HEMOGLOBIN 9.2 g/dl (14.0-17.9); LYMPHOCYTES # (AUTO) 1.2 X10'3 (1.1-4.8); MONOCYTES # (AUTO) 0.8 X10'3 (0-0.9)
--- NOTE | 2019-04-29 05:36 | NUR ---
PT STATED HE WANTED TO SIT UP HE HAD A CRAMP IN HIS LEG. I HELPED HIM SIT UP AND HE WAS VERY RUDE WHEN I SAID I WOULD NOT GET HIM OOB. PT WORKED WITH HIM AND IT TOOK 3 ASSIST TO STEDY LIFT. HE PROCEEDED TO CURSE AT ME WHILE I GOT HIM BACK TO BED. I RE COBANNED HIS PIV AND I FINALLY SALINE LOCKED HIS FLUIDS AND EXTENDED THE WRAP IN AN ATTEMPT TO SAVE THE PIV. PLAN TODAY A PICC LINE.
[2019-04-29 05:38] LABS: EOSINOPHILS % (AUTO) 0.8 % (0-6); LYMPHOCYTES % (AUTO) 16.6 % (21-51); MEAN CORPUSCULAR HEMOGLOBIN 31.4 PG (27.0-31.0); MEAN CORPUSCULAR HGB CONC 34.1 g/dL (33.0-36.5); MEAN PLATELET VOLUME 7.3 FL (7.4-10.4); MONOCYTES % (AUTO) 10.8 % (2-12); NEUTROPHILS # (AUTO) 5.4 X10'3 (1.8-7.7); NEUTROPHILS % (AUTO) 71.2 % (42-75); PLATELET COUNT 271 X10'3 (140-440); RED BLOOD COUNT 2.93 X10'6 (4.70-6.10); RED CELL DISTRIBUTION WIDTH 17.4 % (11.5-14.5); WHITE BLOOD COUNT 7.5 X10'3 (4.5-11.0)
[2019-04-29 05:44] LABS: ALBUMIN 1.6 G/DL (3.4-5.0); ANION GAP 10 (8-16); BLOOD UREA NITROGEN 8 MG/DL (7-18); BUN/CREATININE RATIO 9.9 (5.4-32.0); CALCIUM 8.5 MG/DL (8.5-10.1); CHLORIDE 111 MMOL/L (99-107); CREATININE 0.81 MG/DL (0.60-1.10); GLUCOSE 124 MG/DL (70-104); POTASSIUM 3.1 MMOL/L (3.5-5.1); SODIUM 151 MMOL/L (135-145); TOTAL CARBON DIOXIDE 30.3 MMOL/L (24-32); eGFR > 90 ML/MIN
--- NOTE | 2019-04-29 06:45 | NUR ---
Patient in room [facility] 357. I have received report from Bryan LOPEZ and had the opportunity to ask questions and assume patient care.
--- NOTE | 2019-04-29 06:46 | NUR ---
Problems reprioritized. Patient report given, questions answered & plan of care reviewed with BLAINE. Addendum: 04/29/19 at 0648 by Ted Peace RN Amended: Links added.
[2019-04-29] MEDS: albuterol 2.5 MG/3 ML nebule NEB SCH ×4 (07:00→20:07)
[2019-04-29] MEDS: budesonide 0.5mg/2ml UD nebule IH SCH ×2 (07:28→20:07)
--- NOTE | 2019-04-29 07:38 | NUR ---
Pt refused AM blood sugar check and vitals. JOHN cornell.
[2019-04-29] MEDS: lactose-reduced food (Ensure Enlive) - 237ml bottle PO SCH ×3 (08:00→18:30)
[2019-04-29] MEDS ORDERED: methylnaltrexone br 12mg/0.6ml inj***SubQ only SQ SCH (08:00)
[2019-04-29 09:20] VITALS: BP 159/54
[2019-04-29] MEDS: docusate sod 100mg capsule PO SCH ×2 (09:29→20:42)
[2019-04-29] MEDS: lactobacillus rhamnosus 10,000 MMU CELLS/CAPSULE PO SCH ×2 (09:29→20:42)
[2019-04-29] MEDS: amiodarone 200mg tablet PO SCH (09:29)
[2019-04-29] MEDS: cyanocobalamin 500mcg tablet PO SCH (09:29)
[2019-04-29] MEDS: magnesium hydroxide 30ml (MOM) UD suspension PO SCH ×2 (09:32→20:42)
[2019-04-29 10:02] LABS: ANISOCYTOSIS 1+; BURR CELLS 2+; PLATELET ESTIMATE NORMAL; SCHISTOCYTES FEW
[2019-04-29 10:03] LABS: POLYCHROMASIA FEW
--- NOTE | 2019-04-29 10:23 | NUR ---
Patient got up by PT today then sat on a recliner. Placed call light within reach. Instructed patient not to get up by himself but to use his call light to call when he wants to go back to bed. Patient verbalized understanding
[2019-04-29 11:00] VITALS: BP 155/53
--- NOTE | 2019-04-29 13:10 | NUR ---
Patient refused insulin for his blood sugar of 123mg/dl at lunch time
--- NOTE | 2019-04-29 14:47 | NUR ---
Patient refused wound vac dressing change today. I tried to convince him about this but still refusing. Instead patient was yelling at me and to the wound care nurse, saud, would not cooperate. Charge nurse Laina notified about this. Dr. Park was also notified when she made rounds.
--- NOTE | 2019-04-29 14:57 | NUR ---
Wound care POC. Arrived at bedside for dressing change. Initially arrived at about 1330 and pt states he was wanting to stay in his chair a little longer. Asked him if we could come back in a half hour and do it then and he stated that was fine. When we arrived back at the bedside he was resting in bed with his eyes closed. I let him know we were there and set up supplies for the vac dressing change. When I tried to start the dressing change the pt started cussing at me and telling me to leave him alone. I tried to get him to wake up a little so I could talk to him and he continued to curse and pull on his vac tubing. I briefly educated him on the risk for infection if the dressing was not changed appropriately and he stated that he didn't care. Primary nurse came to bedside and tried to talk with pt as well and he continued to refuse to let us change the dressing and cuss out us to leave him alone. CRN notified and primary nurse notified . Will follow up tomorrow and attempt dressing change. At that time call will be made to surgeon if pt is continuing to refuse dressing change as the vac will need to be discontinued and alternate dressing applied.
[2019-04-29] MEDS ORDERED: magnesium 4gm in 100ml NS 100 ML IV PRN (15:20)
[2019-04-29] MEDS ORDERED: magnesium 2GM in 50ml NS 50 ML IV PRN (15:20)
[2019-04-29] MEDS ORDERED: potassium CL 10mEq/100ml bag 100 ML IV PRN (15:20)
[2019-04-29] MEDS ORDERED: potassium Cl 20 mEq SR tablet PO PRN (15:20)
[2019-04-29] MEDS ORDERED: magnesium Cl slow-release 64mg tablet PO PRN (15:20)
--- NOTE | 2019-04-29 15:43 | NUR ---
Dr. Cadleron and Dr. Sheth were both notified about patient's refusal of wound vac dressing change today as well as regarding patient uncooperativeness and yelling at nurses.
[2019-04-29] MEDS: potassium Cl 20 mEq SR tablet PO PRN (16:15)
--- NOTE | 2019-04-29 17:48 | NUR ---
PICC line nurse still at the bedside doing PICC line insertion at this time
--- NOTE | 2019-04-29 18:20 | NUR ---
Attempted placement of picc on right brachial vein, picc will not thread past 20 cm after multiple attempts. Introducer removed and will attempt left sided picc placement tomorrow. Pt agrees with plan of care Addendum: 04/29/19 at 1822 by Nicolette Herring RN JOHN notified
--- NOTE | 2019-04-29 18:42 | NUR ---
Blood sugar was not able to check because the PICC line nurse was at bedside doing sterile procedure to the patient. When she got out of the patient room it was already change of shift. Seen patient already eating his dinner so I did not check his blood sugar at this time. shift engineer nurse Pat agreed it won't be accurate anymore to check his blood sugar at this time since he already eating. Night nurse will check the blood sugar at bedtime
[2019-04-29 19:30] VITALS: BP 120/91
[2019-04-29] MEDS: insulin glargine (Lantus) pen - multi-dose SQ SCH (21:57)
[2019-04-29] MEDS: insulin Lispro (HumaLOG) vial - multi-dose SQ SCH (21:59)
[2019-04-30] VITALS: BP 149/52
[2019-04-30] MEDS: potassium Cl 20 mEq SR tablet PO PRN (00:27)
[2019-04-30] MEDS: piperacillin/tazo 3.375gm/50ml 50 ML IV SCH ×3 (00:27→16:09)
[2019-04-30 04:46] LABS: BASOPHILS # (AUTO) 0.1 X10'3 (0-0.2); BASOPHILS % (AUTO) 1.2 % (0-1); EOSINOPHILS % (AUTO) 0.7 % (0-6); HEMATOCRIT 27.4 % (42.0-52.0); HEMOGLOBIN 9.1 g/dl (14.0-17.9); LYMPHOCYTES # (AUTO) 1.1 X10'3 (1.1-4.8); LYMPHOCYTES % (AUTO) 18.4 % (21-51); MEAN CORPUSCULAR HEMOGLOBIN 30.6 PG (27.0-31.0); MEAN CORPUSCULAR HGB CONC 33.2 g/dL (33.0-36.5); MEAN CORPUSCULAR VOLUME 92.4 FL (78-98); MEAN PLATELET VOLUME 7.6 FL (7.4-10.4); MONOCYTES # (AUTO) 0.6 X10'3 (0-0.9); MONOCYTES % (AUTO) 10.8 % (2-12); NEUTROPHILS # (AUTO) 4.2 X10'3 (1.8-7.7); NEUTROPHILS % (AUTO) 68.9 % (42-75); PLATELET COUNT 257 X10'3 (140-440); RED BLOOD COUNT 2.96 X10'6 (4.70-6.10); RED CELL DISTRIBUTION WIDTH 17.1 % (11.5-14.5)
[2019-04-30 05:12] LABS: ALBUMIN 1.7 G/DL (3.4-5.0); ANION GAP 6 (8-16); BLOOD UREA NITROGEN 7 MG/DL (7-18); BUN/CREATININE RATIO 7.5 (5.4-32.0); CALCIUM 8.2 MG/DL (8.5-10.1); CHLORIDE 110 MMOL/L (99-107); CREATININE 0.93 MG/DL (0.60-1.10); GLUCOSE 279 MG/DL (70-104); POTASSIUM 3.4 MMOL/L (3.5-5.1); SODIUM 146 MMOL/L (135-145); TOTAL CARBON DIOXIDE 29.7 MMOL/L (24-32); eGFR 78 ML/MIN
[2019-04-30 07:00] VITALS: BP 113/63
--- NOTE | 2019-04-30 07:02 | NUR ---
Patient in room [facility] 357. I have received report from Pat RN and had the opportunity to ask questions and assume patient care.
[2019-04-30] MEDS: albuterol 2.5 MG/3 ML nebule NEB SCH ×4 (07:15→19:02)
[2019-04-30] MEDS: budesonide 0.5mg/2ml UD nebule IH SCH ×2 (07:15→19:02)
--- NOTE | 2019-04-30 07:45 | NUR ---
Patient pulled out his wound vac dressing on the left groin last night per report I got. Left groin was dressed with wet to dry dressing. Upon assessment the left groin dressing is soaking wet, new wet to dry dressing applied on the left groin. Will let wound care nurse know today about this
[2019-04-30] MEDS: docusate sod 100mg capsule PO SCH (08:00)
[2019-04-30] MEDS: lactose-reduced food (Ensure Enlive) - 237ml bottle PO SCH ×3 (08:00→18:00)
[2019-04-30] MEDS: magnesium hydroxide 30ml (MOM) UD suspension PO SCH (08:00)
[2019-04-30] MEDS: lactobacillus rhamnosus 10,000 MMU CELLS/CAPSULE PO SCH ×2 (08:30→21:18)
[2019-04-30] MEDS: amiodarone 200mg tablet PO SCH (08:30)
[2019-04-30] MEDS: cyanocobalamin 500mcg tablet PO SCH (08:31)
[2019-04-30] MEDS: heparin, porcine 5000 units/ml vial SQ SCH ×3 (08:32→21:27)
--- NOTE | 2019-04-30 09:00 | NUR ---
Patient refused insulin this am for blood sugar of 206mg/dl
--- NOTE | 2019-04-30 09:38 | NUR ---
Wound vac reapplied by wound care nurse
--- NOTE | 2019-04-30 10:51 | NUR ---
WOUND VAC EDUCATION PROVIDED BY WOUND CARE 1. Patient instructed to call the Wound Center or their Home Health Agency immediately if: * They notice a change in the color or amount of the fluid in the canister. * Their wound looks more red than usual or has a foul smell. * The skin around their wound looks reddened or irritated. * The dressing feels loose or appears to be loose. * They experience any increase or changes in their pain. * The alarm will not turn off. 2. Patient instructed that they should not be disconnected from suction for more than 2 hours at a time. * If they are not able to get the suction back on, they need to remove the dressing and take all of the foam out of the wound. * Then moisten sterile gauze with normal saline and place on/in the wound. * Change the dressing once a day until arrangements have been made to replace the wound vac dressing. 3. Patient instructed to turn the wound vac machine OFF and call 911 or go to the ED immediately if their canister fills rapidly with blood. 4. If any of these occur while in the hospital tell a nurse immediately. Addendum: 04/30/19 at 1052 by Amisha Coffey RN Amended: Links added.
[2019-04-30 11:00] VITALS: BP 164/65
--- NOTE | 2019-04-30 11:38 | NUR ---
Reassessment: Pt remains confused and A/O x 1 per physical assessment. Pt documented to have refused meals 04/28 lunch to 04/29 breakfast however now with 50% PO intake of meals. Pt refusing some ONS including at breakfast this morning however with 100% PO intake of ONS at dinner yesterday. Per RN notes pt refused insulin this morning for BG of 206. Recommend continuing with ONS and regular diet at this time given fluctuations in PO intake and pt with increased protein needs r/t wound with VAC. LBM 04/30 documented as liquid stools, likely r/t recent bowel care given. Will continue to follow. Rec: 1. continue regular diet per MD; consider carb controlled if PO improves 2. ensure enlive TIDWM 3. MVI for wound healing once PO 4. wt per rx Addendum: 04/30/19 at [address] Amended: Links added.
[2019-04-30] MEDS: insulin Lispro (HumaLOG) vial - multi-dose SQ SCH ×2 (12:59→19:39)
--- NOTE | 2019-04-30 13:07 | NUR ---
Patient's blood sugar was 342mg/dl. He did not ate his lunch, I was about to cover his blood sugar with correctional dose of 15 units but patient refused it. I told him that his blood sugar is so high and that it really needs insulin to control it. Patient yelled at me and said "This is the 4th time I'm telling you that I don't want it!" I asked patient why he does not want it, he did not answered my question and asked me to leave the room. Charge nurse Laina notified and Dr. Ying notified about this
--- NOTE | 2019-04-30 13:10 | NUR ---
Pt agreed to PICC placement. Upon opening of kit pt became very agitated and began yelling "I told you not to touch me! You are not putting anything in me!" Pt educated on necessity of PICC and became increasingly upset. RN notified of inability to place PICC at this time. Mercy Herring RN
--- NOTE | 2019-04-30 18:54 | NUR ---
Problems reprioritized. Patient report given, questions answered & plan of care reviewed with Ellyn LOPEZ.
--- NOTE | 2019-04-30 18:55 | NUR ---
Patient in room [facility] 357. I have received report from BLAINE LOPEZ and had the opportunity to ask questions and assume patient care.
[2019-04-30 20:00] VITALS: BP 142/58
[2019-04-30] MEDS: insulin glargine (Lantus) pen - multi-dose SQ SCH (21:00)
--- NOTE | 2019-04-30 21:30 | NUR ---
PATIENT'S HS BLOOD SUGAR 331 BUT REFUSED INSULIN AT THIS TIME EVEN AFTER EXPLANATIONS OF THE IMPORTANCE OF INSULIN BUT STILL STRONGLY REFUSED.
[2019-05-01] VITALS: BP 122/97
[2019-05-01] MEDS: piperacillin/tazo 3.375gm/50ml 50 ML IV SCH ×3 (01:06→16:12)
--- NOTE | 2019-05-01 06:20 | NUR ---
Problems reprioritized. Patient report given, questions answered & plan of care reviewed with kimmy farrell.
--- NOTE | 2019-05-01 06:25 | NUR ---
Patient in room [facility] 357. I have received report from JOHN Ragland and had the opportunity to ask questions and assume patient care.
[2019-05-01 07:25] VITALS: BP 158/52
[2019-05-01] MEDS: budesonide 0.5mg/2ml UD nebule IH SCH ×2 (07:30→20:01)
[2019-05-01] MEDS: albuterol 2.5 MG/3 ML nebule NEB SCH ×4 (07:30→20:01)
[2019-05-01] MEDS: lactose-reduced food (Ensure Enlive) - 237ml bottle PO SCH ×3 (08:00→18:03)
[2019-05-01] MEDS: amiodarone 200mg tablet PO SCH (09:17)
[2019-05-01] MEDS: lactobacillus rhamnosus 10,000 MMU CELLS/CAPSULE PO SCH ×2 (09:17→21:45)
[2019-05-01] MEDS: cyanocobalamin 500mcg tablet PO SCH (09:18)
[2019-05-01] MEDS: heparin, porcine 5000 units/ml vial SQ SCH ×2 (09:26→21:46)
--- NOTE | 2019-05-01 10:21 | NUR ---
Did not give patient insulin because he ate very late. Will check again at 1200 and see if he will let me treat him then.
[2019-05-01 11:30] VITALS: BP 119/49
--- NOTE | 2019-05-01 12:30 | NUR ---
Patients sugar was 442. Covered his sugar only at first because he was so high and hadn't eaten yet. Was going to go back and over his carbs also but he refused his lunch and only wanted his ensure. PICC nurse Nell is now here to place a PICC. Patient received 21 units; will re-check in a couple of hours to see if he has come down. Left patient at a level 4 because he ate breakfast late and I didn't want him to bottom out if he stayed at a level 5.
[2019-05-01] MEDS: insulin Lispro (HumaLOG) vial - multi-dose SQ SCH ×3 (12:36→21:50)
--- NOTE | 2019-05-01 18:10 | NUR ---
Problems reprioritized. Patient report given, questions answered & plan of care reviewed with JOHN Ragland.
--- NOTE | 2019-05-01 18:30 | NUR ---
Patient in room RHOAN 357. I have received report from JANA LOPEZ and had the opportunity to ask questions and assume patient care.
[2019-05-01] MEDS: insulin glargine (Lantus) pen - multi-dose SQ SCH ×2 (21:00→21:51)
[2019-05-02] MEDS: piperacillin/tazo 3.375gm/50ml 50 ML IV SCH ×2 (00:05→07:55)
[2019-05-02 02:48] VITALS: BP 139/60
--- NOTE | 2019-05-02 06:30 | NUR ---
Problems reprioritized. Patient report given, questions answered & plan of care reviewed with BLAINE LOPEZ.
--- NOTE | 2019-05-02 06:55 | NUR ---
Patient in room RHONA 357. I have received report from Ellyn LOPEZ and had the opportunity to ask questions and assume patient care.
[2019-05-02 07:00] VITALS: BP 137/50
[2019-05-02] MEDS: budesonide 0.5mg/2ml UD nebule IH SCH (07:01)
[2019-05-02] MEDS: albuterol 2.5 MG/3 ML nebule NEB SCH ×2 (07:01→11:00)
[2019-05-02] MEDS: lactose-reduced food (Ensure Enlive) - 237ml bottle PO SCH (08:00)
[2019-05-02] MEDS: lactobacillus rhamnosus 10,000 MMU CELLS/CAPSULE PO SCH (08:50)
[2019-05-02] MEDS: cyanocobalamin 500mcg tablet PO SCH (08:50)
[2019-05-02] MEDS: amiodarone 200mg tablet PO SCH (08:50)
[2019-05-02] MEDS: heparin, porcine 5000 units/ml vial SQ SCH (08:51)
[2019-05-02] MEDS: insulin Lispro (HumaLOG) vial - multi-dose SQ SCH (08:55)
--- NOTE | 2019-05-02 10:40 | NUR ---
I called Dr. Ying to let him know that Dr. Quevedo already signed paperworks for patient's discharge to [facility] ([facility]). He said he is okay with it.
--- NOTE | 2019-05-02 12:20 | NUR ---
Patient was discharged to [facility] with PICC line on his left upper arm, a nino catheter, and a wound vac dressing on the left groin. Belongings sent with the patient.
== END 2019-05-02 12:21 | DRG 270 ==
LOC: ER 09:59 → ICU 2S 17:59 → SUR 3N 04-29
PROVIDERS: ADMIT Surgery; ATTEND Surgery
PROC: 0JBM0ZZ Excision of Left Upper Leg Subcutaneous Tissue and Fascia, Open Approach (ICD-10-PCS; 2019-04-25)
PROC: 04QL0ZZ Repair Left Femoral Artery, Open Approach (ICD-10-PCS; 2019-04-25)
PROC: 0KXR0ZZ Transfer Left Upper Leg Muscle, Open Approach (ICD-10-PCS; 2019-04-25)
PROC: 30233K1 Transfusion of Nonautologous Frozen Plasma into Peripheral Vein, Percutaneous Approach (ICD-10-PCS; 2019-04-25)
PROC: 30233N1 Transfusion of Nonautologous Red Blood Cells into Peripheral Vein, Percutaneous Approach (ICD-10-PCS; 2019-04-25)
PROC: 02HV33Z Insertion of Infusion Device into Superior Vena Cava, Percutaneous Approach (ICD-10-PCS; 2019-04-25)
PROC: B4201ZZ Computerized Tomography (CT Scan) of Abdominal Aorta using Low Osmolar Contrast (ICD-10-PCS; 2019-04-25)
PROC: B4281ZZ Computerized Tomography (CT Scan) of Bilateral Renal Arteries using Low Osmolar Contrast (ICD-10-PCS; 2019-04-25)
PROC: B42C1ZZ Computerized Tomography (CT Scan) of Pelvic Arteries using Low Osmolar Contrast (ICD-10-PCS; 2019-04-25)
PROC: B42H1ZZ Computerized Tomography (CT Scan) of Bilateral Lower Extremity Arteries using Low Osmolar Contrast (ICD-10-PCS; 2019-04-25)
PROC: B4211ZZ Computerized Tomography (CT Scan) of Celiac Artery using Low Osmolar Contrast (ICD-10-PCS; 2019-04-25)
PROC: B42H1ZZ Computerized Tomography (CT Scan) of Bilateral Lower Extremity Arteries using Low Osmolar Contrast (ICD-10-PCS; 2019-04-25)
PROC: B548ZZA Ultrasonography of Superior Vena Cava, Guidance (ICD-10-PCS; 2019-04-25)
PROC: 041J0JJ Bypass Left External Iliac Artery to Left Femoral Artery with Synthetic Substitute, Open Approach (ICD-10-PCS; principal; 2019-04-25 12:33)
PROC: 02HV33Z Insertion of Infusion Device into Superior Vena Cava, Percutaneous Approach (ICD-10-PCS; 2019-05-01)
PROC: B548ZZA Ultrasonography of Superior Vena Cava, Guidance (ICD-10-PCS; 2019-05-01)
DX: T81.718A Complication of other artery following a procedure, not elsewhere classified, initial encounter (principal); A41.9 Sepsis, unspecified organism; G93.41 Metabolic encephalopathy; D68.9 Coagulation defect, unspecified; L76.22 Postprocedural hemorrhage of skin and subcutaneous tissue following other procedure; E11.51 Type 2 diabetes mellitus with diabetic peripheral angiopathy without gangrene; I11.0 Hypertensive heart disease with heart failure; I48.91 Unspecified atrial fibrillation; J44.9 Chronic obstructive pulmonary disease, unspecified; B95.61 Methicillin susceptible Staphylococcus aureus infection as the cause of diseases classified elsewhere; E87.6 Hypokalemia; B95.2 Enterococcus as the cause of diseases classified elsewhere; F03.90 Unspecified dementia, unspecified severity, without behavioral disturbance, psychotic disturbance, mood disturbance, and anxiety; I50.9 Heart failure, unspecified; K21.9 Gastro-esophageal reflux disease without esophagitis; Z85.038 Personal history of other malignant neoplasm of large intestine; Z90.49 Acquired absence of other specified parts of digestive tract; Z95.0 Presence of cardiac pacemaker; Z95.2 Presence of prosthetic heart valve; Z79.4 Long term (current) use of insulin; Z79.01 Long term (current) use of anticoagulants; Y84.0 Cardiac catheterization as the cause of abnormal reaction of the patient, or of later complication, without mention of misadventure at the time of the procedure; Y92.89 Other specified places as the place of occurrence of the external cause
CPT/HCPCS: 36415; 36430; 36569; 71045; 74174; 74176; 75635; 76937; 80047; 80048; 80053; 82948; 83036; 84484; 85025; 85384; 85610; 85730; 86885; 86900; 86901; 86920; 87040; 87070; 87075; 87077; 87186; 88304; 88311; 93005; 94640; 94760; 96365; 96375; 97110; 97116; 97161; 97530; 99291; A4618; A6455; A6550; A7000; C1758; C1768; G0378; J0690; J1170; J1580; J1644; J1815; J2001; J2212; J2270; J2370; J2405; J2543; J2710; J3010; J3370; J3420; J3430; J3475; J3480; J3490; J7030; J7040; J7050; J7060; J7120; J7626; P9016; P9059; Q9967

== ENCOUNTER 2019-11-23 15:01 | Emergency (ER) | payer MEDICARE ==
[~2019-11-23] VITALS: Ht 172.7 cm; Wt 67.0 kg
[~2019-11-23 15:01] MED LIST changes: +ACET-2119 PO; +ALB0.5UD IH; +BISA10SU60 RC; -COU2.5T PO; +FURO40TA4 PO; +GLUC1KIT IM; +INSULIN LISPRO; +IPRA3AMP9 IH; +LACT10SO PO; +LACT1CAP7 PO; +LANTUS SQ; -LIRA0.6P2 SUBCUT; +POLY17PO10 PO; +POTA20PA40 PO; +SENN-162 PO; +WARF1TAB PO
[2019-11-23 15:46] LABS: BASOPHILS # (AUTO) 0.1 X10'3 (0-0.2); BASOPHILS % (AUTO) 1.3 % (0-1); EOSINOPHILS # (AUTO) 0.3 X10'3 (0-0.9); EOSINOPHILS % (AUTO) 3.3 % (0-6); HEMATOCRIT 42.7 % (42.0-52.0); HEMOGLOBIN 14.4 g/dl (14.0-17.9); LYMPHOCYTES # (AUTO) 2.1 X10'3 (1.1-4.8); LYMPHOCYTES % (AUTO) 26.7 % (21-51); MEAN CORPUSCULAR HGB CONC 33.6 g/dL (33.0-36.5); MEAN CORPUSCULAR VOLUME 89.4 FL (78-98); MEAN PLATELET VOLUME 7.3 FL (7.4-10.4); MONOCYTES # (AUTO) 0.8 X10'3 (0-0.9); MONOCYTES % (AUTO) 10.3 % (2-12); NEUTROPHILS # (AUTO) 4.6 X10'3 (1.8-7.7); NEUTROPHILS % (AUTO) 58.4 % (42-75); PLATELET COUNT 238 X10'3 (140-440); RED BLOOD COUNT 4.78 X10'6 (4.70-6.10); RED CELL DISTRIBUTION WIDTH 15.2 % (11.5-14.5); WHITE BLOOD COUNT 7.8 X10'3 (4.5-11.0)
[2019-11-23 15:55] VITALS: BP 113/43
[2019-11-23 15:58] LABS: ALANINE AMINOTRANSFERASE 77 U/L (12-78); ALBUMIN 3.3 G/DL (3.4-5.0); ALBUMIN/GLOBULIN RATIO 0.7 (1.1-1.5); ALKALINE PHOSPHATASE 90 IU/L (46-116); ANION GAP 8 (8-16); ASPARTATE AMINO TRANSFERASE 60 U/L (10-37); BILIRUBIN,TOTAL 0.3 MG/DL (0.1-1.0); BLOOD UREA NITROGEN 14 MG/DL (7-18); BUN/CREATININE RATIO 18.7 (5.4-32.0); CALCIUM 9.3 MG/DL (8.5-10.1); CHLORIDE 103 MMOL/L (99-107); CREATININE 0.75 MG/DL (0.60-1.10); GLUCOSE 62 MG/DL (70-104); POTASSIUM 3.7 MMOL/L (3.5-5.1); SODIUM 143 MMOL/L (135-145); TOTAL CARBON DIOXIDE 31.8 MMOL/L (24-32); TOTAL PROTEIN 7.8 G/DL (6.4-8.2); eGFR > 90 ML/MIN
[2019-11-23 16:07] LABS: ETHANOL < 0.010 GM/DL (0.0-0.010)
[2019-11-23] MEDS ORDERED: QUEtiapine 25mg tablet PO SCH (17:00)
== END 2019-11-23 17:22 ==
LOC: ER 15:01
DX: F03.91 Unspecified dementia, unspecified severity, with behavioral disturbance (principal); I48.91 Unspecified atrial fibrillation; I11.0 Hypertensive heart disease with heart failure; I50.9 Heart failure, unspecified; K21.9 Gastro-esophageal reflux disease without esophagitis; E11.9 Type 2 diabetes mellitus without complications; Z85.038 Personal history of other malignant neoplasm of large intestine; Z95.0 Presence of cardiac pacemaker; Z98.890 Other specified postprocedural states; Z90.49 Acquired absence of other specified parts of digestive tract; Z79.01 Long term (current) use of anticoagulants; Z79.899 Other long term (current) drug therapy; Z79.4 Long term (current) use of insulin
CPT/HCPCS: 36415; 80053; 80320; 84443; 85025; 99284

== ENCOUNTER 2020-05-04 09:47 | Emergency (ER) | payer MEDICARE ==
[~2020-05-04] VITALS: Ht 180.3 cm; Wt 82.6 kg
[~2020-05-04 09:47] MED LIST changes: -SENN-162 PO; +SENN-263 PO; -WARF1TAB PO; +WARF1TAB2 PO
[2020-05-04] MEDS ORDERED: normal saline 1000ML IV soln IVB ONE (09:55)
[2020-05-04 11:26] LABS: CLARITY,URINE CLOUDY (Clear); COLOR,URINE YELLOW (Yellow); GLUCOSE, URINE >=1000 mg/dl (Neg); KETONES,URINE TRACE mg/dl (Neg); LEUKOCYTE ESTERASE ,URINE TRACE (Neg); NITRITES, URINE NEGATIVE (Neg); OCCULT BLOOD,URINE TRACE-LYSED (Neg); PROTEIN,URINE TRACE mg/dl (Neg)
[2020-05-04 11:26] LABS: BASOPHILS % (AUTO) 0.4 % (0-1); EOSINOPHILS % (AUTO) 0.1 % (0-6); HEMATOCRIT 39.6 % (42.0-52.0); LYMPHOCYTES # (AUTO) 0.8 X10'3 (1.1-4.8); LYMPHOCYTES % (AUTO) 11.6 % (21-51); MEAN CORPUSCULAR HGB CONC 32.9 g/dL (33.0-36.5); MEAN CORPUSCULAR VOLUME 91.2 FL (78-98); MEAN PLATELET VOLUME 8.1 FL (7.4-10.4); MONOCYTES # (AUTO) 0.5 X10'3 (0-0.9); MONOCYTES % (AUTO) 7.4 % (2-12); NEUTROPHILS # (AUTO) 5.4 X10'3 (1.8-7.7); NEUTROPHILS % (AUTO) 80.5 % (42-75); PLATELET COUNT 166 X10'3 (140-440); RED BLOOD COUNT 4.34 X10'6 (4.70-6.10); RED CELL DISTRIBUTION WIDTH 14.8 % (11.5-14.5); WHITE BLOOD COUNT 6.7 X10'3 (4.5-11.0)
[2020-05-04 11:32] LABS: UA COLLECTION TYPE STRAIGHT CATH
[2020-05-04 11:33] LABS: BACTERIA,URINE 3+ /HPF (Neg); SQUAMOUS EPITHELIAL CELL,UR NONE SEEN /LPF (FEW); WBC CLUMPS,URINE MANY /HPF (NEGATIVE); WBC,URINE TNTC /HPF (0-4)
[2020-05-04 11:34] LABS: RBC,URINE 0-2 /HPF (0-2)
[2020-05-04 11:40] LABS: ALANINE AMINOTRANSFERASE 48 U/L (12-78); ALBUMIN 3.3 G/DL (3.4-5.0); ALBUMIN/GLOBULIN RATIO 0.9 (1.1-1.5); ALKALINE PHOSPHATASE 64 IU/L (46-116); ANION GAP 8 (8-16); ASPARTATE AMINO TRANSFERASE 28 U/L (10-37); BILIRUBIN,TOTAL 0.4 MG/DL (0.1-1.0); BLOOD UREA NITROGEN 16 MG/DL (7-18); BUN/CREATININE RATIO 17.8 (5.4-32.0); CALCIUM 8.7 MG/DL (8.5-10.1); CHLORIDE 107 MMOL/L (99-107); GLUCOSE 234 MG/DL (70-104); POTASSIUM 3.6 MMOL/L (3.5-5.1); SODIUM 141 MMOL/L (135-145); TOTAL CARBON DIOXIDE 25.7 MMOL/L (24-32); TOTAL PROTEIN 7.1 G/DL (6.4-8.2); eGFR 81 ML/MIN
[2020-05-04 11:44] LABS: TROPONIN I < 0.04 NG/ML (0.0-0.05)
[2020-05-04] MEDS ORDERED: CefTRIAXone 2gm/D5W 50ml 50 ML IV ONE (11:55)
[2020-05-04] MEDS ORDERED: CEPH250T PO (11:57)
[2020-05-04] MEDS ORDERED: CefTRIAXone inj 2,000 MG in normal saline 100ml IV soln 100 ML IV ONE (12:00)
[2020-05-04 13:26] VITALS: BP 161/65
== END 2020-05-04 13:39 | disposition home or self-care (01) ==
LOC: ER 09:47
DX: N39.0 Urinary tract infection, site not specified (principal); G30.9 Alzheimer's disease, unspecified; F02.80 Dementia in other diseases classified elsewhere, unspecified severity, without behavioral disturbance, psychotic disturbance, mood disturbance, and anxiety; R11.2 Nausea with vomiting, unspecified; R51 Headache; R55 Syncope and collapse; I48.91 Unspecified atrial fibrillation; I11.0 Hypertensive heart disease with heart failure; I50.9 Heart failure, unspecified; K21.9 Gastro-esophageal reflux disease without esophagitis; E11.9 Type 2 diabetes mellitus without complications; Z85.038 Personal history of other malignant neoplasm of large intestine; Z95.0 Presence of cardiac pacemaker; Z98.890 Other specified postprocedural states; Z79.2 Long term (current) use of antibiotics; Z79.4 Long term (current) use of insulin; Z79.01 Long term (current) use of anticoagulants; Z79.899 Other long term (current) drug therapy
CPT/HCPCS: 36415; 70450; 71045; 72125; 80053; 81001; 82948; 84484; 85025; 85610; 87077; 87088; 93005; 96361; 96365; 99285; J0696; J7030; 96366

== ENCOUNTER 2020-07-18 11:33 | Outpatient (CLI) | payer MEDICARE, MEDICAID ==
[2020-07-18] MEDS ORDERED: LIDOcaine 2% 5ml jelly ONE ×2 (12:24→12:33)
== END 2020-07-18 13:15 | disposition home or self-care (01) ==
LOC: WOUND CARE 11:33
PROVIDERS: ATTEND Nurse Practitioner Family
DX: E11.621 Type 2 diabetes mellitus with foot ulcer (principal); L97.522 Non-pressure chronic ulcer of other part of left foot with fat layer exposed; E11.40 Type 2 diabetes mellitus with diabetic neuropathy, unspecified; E11.65 Type 2 diabetes mellitus with hyperglycemia; E11.51 Type 2 diabetes mellitus with diabetic peripheral angiopathy without gangrene; E78.5 Hyperlipidemia, unspecified; F41.9 Anxiety disorder, unspecified; F32.9 Major depressive disorder, single episode, unspecified; Z79.01 Long term (current) use of anticoagulants; Z79.899 Other long term (current) drug therapy
CPT/HCPCS: 36416; 73630; 82948; 87070; 87075; 87077; 87102; 87186; 97597

== ENCOUNTER 2020-07-27 11:55 | Outpatient (CLI) | payer MEDICARE, MEDICAID ==
[2020-07-27] MEDS ORDERED: LIDOcaine 2% 5ml jelly ONE ×2 (12:28→12:39)
== END 2020-07-27 23:59 | disposition home or self-care (01) ==
LOC: WOUND CARE 11:55 → EDSTATUS 12:00 → WOUND CARE 23:59
PROVIDERS: ATTEND Nurse Practitioner
DX: E11.621 Type 2 diabetes mellitus with foot ulcer (principal); L97.522 Non-pressure chronic ulcer of other part of left foot with fat layer exposed; E11.40 Type 2 diabetes mellitus with diabetic neuropathy, unspecified; E11.65 Type 2 diabetes mellitus with hyperglycemia; E11.51 Type 2 diabetes mellitus with diabetic peripheral angiopathy without gangrene; M79.89 Other specified soft tissue disorders; G93.41 Metabolic encephalopathy; E78.5 Hyperlipidemia, unspecified; I49.5 Sick sinus syndrome; I48.91 Unspecified atrial fibrillation; K21.9 Gastro-esophageal reflux disease without esophagitis; I11.0 Hypertensive heart disease with heart failure; I50.32 Chronic diastolic (congestive) heart failure; F41.9 Anxiety disorder, unspecified; F03.91 Unspecified dementia, unspecified severity, with behavioral disturbance; F32.9 Major depressive disorder, single episode, unspecified; Z79.01 Long term (current) use of anticoagulants; Z79.899 Other long term (current) drug therapy; Z90.49 Acquired absence of other specified parts of digestive tract; Z98.49 Cataract extraction status, unspecified eye; Z85.038 Personal history of other malignant neoplasm of large intestine; Z87.891 Personal history of nicotine dependence; Z95.0 Presence of cardiac pacemaker; Z95.2 Presence of prosthetic heart valve
CPT/HCPCS: 36416; 82948; 93922; 93925; 93971; G0463

== ENCOUNTER 2020-08-01 11:37 | Inpatient (IN) | payer MEDICARE, MEDICAID ==
[~2020-08-01] VITALS: Ht 170.2 cm; Wt 73.7 kg
[2020-08-01 15:00] VITALS: BP 148/56
[2020-08-01] MEDS ORDERED: MESSAGE TO PHARMACY PO ONE (15:55)
[2020-08-01] MEDS ORDERED: bisacodyl 10mg suppository rectal RC PRN (15:55)
[2020-08-01] MEDS ORDERED: mag hydrox/Alum hydrox/simeth 30ml oral suspension PO PRN (15:55)
[2020-08-01] MEDS ORDERED: magnesium 2GM in 50ml NS 50 ML IV PRN (15:55)
[2020-08-01] MEDS ORDERED: potassium CL 10mEq/100ml bag 100 ML IV PRN (15:55)
[2020-08-01] MEDS ORDERED: magnesium hydroxide 30ml (MOM) UD suspension PO PRN (15:55)
[2020-08-01] MEDS ORDERED: glucagon, human recombinant 1mg kit SUBCUT PRN (15:55)
[2020-08-01] MEDS ORDERED: potassium Cl 20 mEq SR tablet PO PRN (15:55)
[2020-08-01] MEDS ORDERED: dextrose 50%-water 50ml dispensing syringe IV PRN ×2 (15:55)
[2020-08-01] MEDS ORDERED: magnesium Cl slow-release 64mg tablet PO PRN (15:55)
[2020-08-01] MEDS ORDERED: dextrose ORAL solution 15 GM/59 ML bottle PO PRN ×2 (15:55)
[2020-08-01] MEDS ORDERED: acetaminophen 650mg rectal suppository RC PRN (15:55)
[2020-08-01] MEDS ORDERED: diphenhydrAMINE 25mg capsule PO PRN (15:55)
[2020-08-01] MEDS ORDERED: HYDROcodone/acetaminophen 5mg/325mg tablet PO PRN (15:55)
[2020-08-01] MEDS ORDERED: morphine 2 MG/ML inj. syringe IV PRN (15:55)
[2020-08-01] MEDS ORDERED: magnesium 4gm in 100ml NS 100 ML IV PRN (15:55)
[2020-08-01] MEDS ORDERED: ondansetron/PF 4mg/2ml inj IV PRN (15:55)
[2020-08-01] MEDS ORDERED: acetaminophen 325mg tablet PO PRN ×2 (15:55)
[2020-08-01] MEDS: normal saline 1000ml 1,000 ML IV SCH (16:55)
[2020-08-01 18:00] VITALS: BP 153/62
--- NOTE | 2020-08-01 18:32 | NUR ---
Patient in room PCU 3012. I have received report from Candy LOPEZ and had the opportunity to ask questions and assume patient care.
--- NOTE | 2020-08-01 18:40 | NUR ---
Problems reprioritized. Patient report given, questions answered & plan of care reviewed with Mabel LOPEZ and Flo LOPEZ.
[2020-08-01] MEDS: K and/or MAG REPLACEMENT MC SCH (20:00)
[2020-08-01] MEDS: heparin, porcine 5000 units/ml vial SQ SCH (20:00)
--- NOTE | 2020-08-01 20:03 | NUR ---
PAGED DR. CHRISTIANSON. RE: Isaias Avilez Rm: 12A. Admitted today, heparin ordered, no labs ordered. Should I give this or hold it? Dexter 6253
--- NOTE | 2020-08-01 20:07 | NUR ---
Per Dr. Leon, hold Heparin until PTT is drawn. She will add the PTT order to the morning labs.
[2020-08-01] MEDS: insulin glargine (Lantus) pen - multi-dose SQ SCH (20:36)
[2020-08-01] MEDS: insulin Lispro (HumaLOG) vial - multi-dose SQ SCH (20:38)
--- NOTE | 2020-08-01 20:50 | NUR ---
Patient in room PCU 3012A. I have received report from JOHN Renteria and had the opportunity to ask questions and assume patient care.
--- NOTE | 2020-08-01 20:54 | NUR ---
Problems reprioritized. Patient report given, questions answered & plan of care reviewed with Gregoria LOPEZ.
[2020-08-01 22:00] VITALS: BP 99/55
[2020-08-01] MEDS: morphine 2 MG/ML inj. syringe IV PRN (22:01)
--- NOTE | 2020-08-01 22:15 | NUR ---
Patient very confused and highly agitated; attempted deescalating and explainng what's going on to him calmly; but he started swinging and kicking at staff; administered pain medication per MD order as patient was saying he's in pain. Now resting comfortably. Will continue to monitor.
[2020-08-02 02:00] VITALS: BP 142/62
[2020-08-02] MEDS: morphine 2 MG/ML inj. syringe IV PRN (02:13)
[2020-08-02] MEDS: normal saline 1000ml 1,000 ML IV SCH ×3 (02:13→21:55)
--- NOTE | 2020-08-02 05:10 | NUR ---
PAGER ID: [phone] MESSAGE: [phone]- JOHN Kinney for Isaias Mendozap in 3012A. Kicking and swinging at staff, threatening to kill if we come close. may I get an order for restraints please? Thank you.
--- NOTE | 2020-08-02 05:17 | NUR ---
Restraints initiated on patient; calling staff "son of a bitch, stupid bitch" even addressed me as "bulgarian bitch" while kicking and swinging at us as PCT and I tried to put restraints. Addressed voiding needs, no injury or change of color noted at restrained sites. Sitter PCT at bedside. Will continue to monitor.
[2020-08-02 06:00] VITALS: BP 137/79
--- NOTE | 2020-08-02 06:24 | NUR ---
Patient in room PCU 3012. I have received report from JOHN Kinney and had the opportunity to ask questions and assume patient care.
--- NOTE | 2020-08-02 06:24 | NUR ---
Problems reprioritized. Patient report given, questions answered & plan of care reviewed with JOHN Kong and JOHN Lion.
--- NOTE | 2020-08-02 06:46 | NUR ---
Patient in room PCU 3012. I have received report from Gregoria LOPEZ and had the opportunity to ask questions and assume patient care. Patient in no apparent distress at time of handoff.
[2020-08-02] MEDS: heparin, porcine 5000 units/ml vial SQ SCH ×2 (08:00→20:21)
[2020-08-02] MEDS: K and/or MAG REPLACEMENT MC SCH ×2 (08:00→20:00)
[2020-08-02] MEDS: insulin Lispro (HumaLOG) vial - multi-dose SQ SCH ×2 (08:03→20:28)
[2020-08-02 09:19] LABS: BASOPHILS % (AUTO) 0.4 % (0-1); EOSINOPHILS # (AUTO) 0.1 X10'3 (0-0.9); EOSINOPHILS % (AUTO) 1.3 % (0-6); HEMATOCRIT 34.6 % (42.0-52.0); HEMOGLOBIN 11.2 g/dl (14.0-17.9); LYMPHOCYTES # (AUTO) 1.2 X10'3 (1.1-4.8); LYMPHOCYTES % (AUTO) 12.5 % (21-51); MEAN CORPUSCULAR HEMOGLOBIN 29.7 PG (27.0-31.0); MEAN CORPUSCULAR HGB CONC 32.5 g/dL (33.0-36.5); MEAN CORPUSCULAR VOLUME 91.4 FL (78-98); MEAN PLATELET VOLUME 7.8 FL (7.4-10.4); MONOCYTES # (AUTO) 0.6 X10'3 (0-0.9); MONOCYTES % (AUTO) 5.8 % (2-12); NEUTROPHILS # (AUTO) 7.9 X10'3 (1.8-7.7); PLATELET COUNT 287 X10'3 (140-440); RED BLOOD COUNT 3.78 X10'6 (4.70-6.10); WHITE BLOOD COUNT 9.9 X10'3 (4.5-11.0)
[2020-08-02 09:29] LABS: ALANINE AMINOTRANSFERASE 44 U/L (12-78); ALBUMIN 2.2 G/DL (3.4-5.0); ALBUMIN/GLOBULIN RATIO 0.6 (1.1-1.5); ALKALINE PHOSPHATASE 80 IU/L (46-116); ANION GAP 10 (8-16); ASPARTATE AMINO TRANSFERASE 37 U/L (10-37); BILIRUBIN,TOTAL 0.4 MG/DL (0.1-1.0); BLOOD UREA NITROGEN 15 MG/DL (7-18); BUN/CREATININE RATIO 20.5 (5.4-32.0); CALCIUM 7.3 MG/DL (8.5-10.1); CHLORIDE 105 MMOL/L (99-107); CHOL/HDL RATIO 2.8 (0.00-4.99); CHOLESTEROL 70 MG/DL (0-200); CREATININE 0.73 MG/DL (0.60-1.10); GLUCOSE 265 MG/DL (70-104); HDL CHOLESTEROL 25 MG/DL (35-60); LDL CHOLESTEROL 36 MG/DL (50-100); MAGNESIUM 1.5 MG/DL (1.5-2.4); PHOSPHORUS 2.3 MG/DL (2.3-4.5); POTASSIUM 3.3 MMOL/L (3.5-5.1); SODIUM 137 MMOL/L (135-145); TOTAL CARBON DIOXIDE 22.3 MMOL/L (24-32); TOTAL PROTEIN 6.2 G/DL (6.4-8.2); TRIGLYCERIDES 70 MG/DL (20-135); eGFR > 90 ML/MIN
--- NOTE | 2020-08-02 10:48 | NUR ---
DM consult, A1c 9.7%, pt is confused and not appropriate for DM education at this time. Will defer education. will follow up on date above for initial nutrition assessment. Addendum: 08/02/20 at [address] Amended: Links added.
[2020-08-02 11:00] VITALS: BP 180/96
--- NOTE | 2020-08-02 11:26 | NUR ---
Pg dr álvaro lopez critical lab PAGER ID: [phone] MESSAGE: Re: Isaias Avilez Rm 3012A Critical Lactic 5.0, up from 3.1 Thanks Luann Vera [phone]
[2020-08-02] MEDS ORDERED: normal saline 1000ml 1,000 ML IV ONE (11:40)
[2020-08-02] MEDS: LORazepam 2 mg/ml vial IV PRN (13:34)
[2020-08-02] MEDS ORDERED: LORA-269 PO (14:19)
[2020-08-02] MEDS ORDERED: DOCU-148 PO (14:23)
[2020-08-02] MEDS ORDERED: MELA1TAB28 PO (14:27)
[2020-08-02] MEDS ORDERED: SERT-153 PO (14:31)
[2020-08-02] MEDS ORDERED: ASCO-10 PO (14:32)
[2020-08-02] MEDS ORDERED: ONDA4TAB6 PO (14:33)
[2020-08-02] MEDS ORDERED: INSU100I31 SQ (14:35)
[2020-08-02] MEDS ORDERED: MULT-1085 PO (14:38)
[2020-08-02] MEDS ORDERED: MIRT-116 PO (14:39)
[2020-08-02] MEDS ORDERED: OXYC5CAP19 PO (14:40)
[2020-08-02] MEDS ORDERED: QUET-1 PO (14:42)
[2020-08-02] MEDS ORDERED: COLL30OI TOP (14:51)
[2020-08-02] MEDS: piperacillin/tazo 3.375gm/50ml 50 ML IV SCH ×3 (14:53→23:44)
[2020-08-02] MEDS: vancomycin/NS 1 GM ADD-VANTAGE 250 ML IV SCH (14:53)
[2020-08-02 15:00] VITALS: BP 105/79
[2020-08-02] MEDS: potassium CL 10mEq/100ml bag 100 ML IV PRN ×4 (15:13→21:55)
[2020-08-02] MEDS ORDERED: bisacodyl 10mg suppository rectal RC PRN (16:15)
[2020-08-02] MEDS ORDERED: glucagon, human recombinant 1mg kit IM PRN (16:15)
[2020-08-02] MEDS ORDERED: ondansetron 4mg rapidly disintigrating tab PO PRN (16:30)
[2020-08-02] MEDS ORDERED: oxyCODONE IR 5mg (immed. release) tablet PO PRN (16:30)
--- NOTE | 2020-08-02 16:32 | NUR ---
Paged Dr rea regarding pt's code status PAGER ID: [phone] MESSAGE: Isaias Orantes Rm [id number] I received an order from with pts code status which reads DNR from 07/09/19 per . Thanks Luann Vera [phone]
[2020-08-02] MEDS ORDERED: haloperidol lactate 5mg/ml inj IM ONE (16:45)
[2020-08-02] MEDS ORDERED: iohexol 350MG/ML 100ml bottle IV ONE (17:32)
[2020-08-02 18:00] VITALS: BP 161/68
--- NOTE | 2020-08-02 18:37 | NUR ---
Problems reprioritized. Patient report given, questions answered & plan of care reviewed with JOHN Mccallum. Pt laying in bed, no signs of distress. Sitter at bedside. All pt needs met at this time.
--- NOTE | 2020-08-02 18:40 | NUR ---
I have received report from Luann LOPEZ and had the opportunity to ask questions and assume patient care.
[2020-08-02] MEDS ORDERED: LORazepam 0.5 MG tablet PO SCH (20:00)
[2020-08-02] MEDS ORDERED: lactulose 20gm/30ml cup PO PRN (20:00)
[2020-08-02] MEDS: docusate sod 100mg capsule PO SCH (20:15)
[2020-08-02] MEDS: quetiapine 100mg tablet PO SCH (20:16)
[2020-08-02] MEDS: mirtazapine 15mg tablet PO SCH (20:17)
[2020-08-02] MEDS: atorvastatin 20mg tablet PO SCH (20:18)
[2020-08-02] MEDS: sennosides 8.6mg tablet PO SCH (20:18)
[2020-08-02] MEDS: ascorbic acid 500mg tablet PO SCH ×2 (20:19→20:24)
[2020-08-02] MEDS: lactobacillus rhamnosus 10,000 MMU CELLS/CAPSULE PO SCH (20:20)
[2020-08-02] MEDS ORDERED: PYRIDOXINE HCL PO SCH (21:00)
[2020-08-02] MEDS ORDERED: MELATONIN PO SCH (21:00)
[2020-08-02 22:00] VITALS: BP 131/51
[2020-08-02] MEDS: insulin glargine (Lantus) pen - multi-dose SQ SCH (22:00)
[2020-08-03 02:00] VITALS: BP 131/82
[2020-08-03] MEDS: vancomycin/NS 1 GM ADD-VANTAGE 250 ML IV SCH ×2 (02:23→15:17)
[2020-08-03 03:26] LABS: CLARITY,URINE CLEAR (Clear); COLOR,URINE YELLOW (Yellow); GLUCOSE, URINE 500 mg/dl (Neg); KETONES,URINE 15 mg/dl (Neg); LEUKOCYTE ESTERASE ,URINE NEGATIVE (Neg); NITRITES, URINE NEGATIVE (Neg); OCCULT BLOOD,URINE NEGATIVE (Neg); PROTEIN,URINE NEGATIVE (Neg)
[2020-08-03 03:27] LABS: UA COLLECTION TYPE CONDOM CATH
--- NOTE | 2020-08-03 03:32 | NUR ---
pt called and would like to be updated and called back when she calls for updates on the pt. pt is currently npo and needs to have a contrast form filled out. will have to be called in the morning to get information for the contrast form
[2020-08-03] MEDS: normal saline 1000ml 1,000 ML IV SCH ×2 (05:44→15:26)
[2020-08-03 05:58] LABS: HEMATOCRIT 33.5 % (42.0-52.0); HEMOGLOBIN 11.2 g/dl (14.0-17.9); MEAN CORPUSCULAR HEMOGLOBIN 30.6 PG (27.0-31.0); MEAN CORPUSCULAR HGB CONC 33.4 g/dL (33.0-36.5); MEAN CORPUSCULAR VOLUME 91.5 FL (78-98); MEAN PLATELET VOLUME 7.9 FL (7.4-10.4); PLATELET COUNT 275 X10'3 (140-440); RED BLOOD COUNT 3.66 X10'6 (4.70-6.10); RED CELL DISTRIBUTION WIDTH 13.8 % (11.5-14.5); WHITE BLOOD COUNT 9.4 X10'3 (4.5-11.0)
[2020-08-03 06:00] VITALS: BP 168/64
[2020-08-03 06:25] LABS: ALANINE AMINOTRANSFERASE 49 U/L (12-78); ALBUMIN 2.4 G/DL (3.4-5.0); ALBUMIN/GLOBULIN RATIO 0.5 (1.1-1.5); ALKALINE PHOSPHATASE 81 IU/L (46-116); ANION GAP 9 (8-16); ASPARTATE AMINO TRANSFERASE 51 U/L (10-37); BILIRUBIN,TOTAL 0.5 MG/DL (0.1-1.0); BLOOD UREA NITROGEN 10 MG/DL (7-18); BUN/CREATININE RATIO 14.3 (5.4-32.0); CALCIUM 8.7 MG/DL (8.5-10.1); CHLORIDE 103 MMOL/L (99-107); GLUCOSE 166 MG/DL (70-104); MAGNESIUM 1.9 MG/DL (1.5-2.4); PHOSPHORUS 2.9 MG/DL (2.3-4.5); SODIUM 136 MMOL/L (135-145); TOTAL CARBON DIOXIDE 24.4 MMOL/L (24-32); TOTAL PROTEIN 6.8 G/DL (6.4-8.2); eGFR > 90 ML/MIN
--- NOTE | 2020-08-03 06:38 | NUR ---
Patient in room PCU 3012. I have received report from JOHN Mccallum and had the opportunity to ask questions and assume patient care.
--- NOTE | 2020-08-03 06:40 | NUR ---
Problems reprioritized. Patient report given, questions answered & plan of care reviewed with Shante LOPEZ.
[2020-08-03 07:29] LABS: PLATELET ESTIMATE NORMAL; TOTAL CELLS COUNTED 100
[2020-08-03] MEDS: polyethylene glycol 3350 17gm powd pack PO SCH (08:00)
[2020-08-03] MEDS ORDERED: non-formulary drug (Collagenase Oint* (Santyl Oint*) 1 APPLIC) TOP SCH (08:00)
[2020-08-03] MEDS: K and/or MAG REPLACEMENT MC SCH ×2 (08:00→20:00)
[2020-08-03] MEDS: heparin, porcine 5000 units/ml vial SQ SCH ×2 (08:00→20:33)
[2020-08-03] MEDS: piperacillin/tazo 3.375gm/50ml 50 ML IV SCH ×2 (09:25→18:36)
[2020-08-03] MEDS: amiodarone 200mg tablet PO SCH (09:27)
[2020-08-03] MEDS: multivitamins, therapeutics tablet PO SCH (09:27)
[2020-08-03] MEDS: sertraline 50mg tablet PO SCH (09:27)
[2020-08-03] MEDS: ascorbic acid 500mg tablet PO SCH ×3 (09:27→20:32)
[2020-08-03] MEDS: lactobacillus rhamnosus 10,000 MMU CELLS/CAPSULE PO SCH ×2 (09:27→20:32)
[2020-08-03] MEDS: docusate sod 100mg capsule PO SCH ×2 (09:28→20:33)
[2020-08-03] MEDS: insulin Lispro (HumaLOG) vial - multi-dose SQ SCH (09:37)
--- NOTE | 2020-08-03 09:50 | NUR ---
Pt's daughter Dorothy, called to inform pt will need consent when MD ready to do procedure.
[2020-08-03 11:00] VITALS: BP 121/73
--- NOTE | 2020-08-03 11:42 | NUR ---
DM consult: Patient's A1c already addressed, see below. DM consult, A1c 9.7%, pt is confused and not appropriate for DM education at this time. Will defer education. will follow up on date above for initial nutrition assessment. Addendum: 08/03/20 at [address] Amended: Links added.
[2020-08-03 15:00] VITALS: BP 112/71
[2020-08-03 19:00] VITALS: BP 115/73
[2020-08-03] MEDS: mirtazapine 15mg tablet PO SCH (20:32)
[2020-08-03] MEDS: quetiapine 100mg tablet PO SCH (20:32)
[2020-08-03] MEDS: sennosides 8.6mg tablet PO SCH (20:32)
[2020-08-03] MEDS: atorvastatin 20mg tablet PO SCH (20:33)
[2020-08-03] MEDS: insulin glargine (Lantus) pen - multi-dose SQ SCH (21:39)
[2020-08-03 23:00] VITALS: BP 109/70
--- NOTE | 2020-08-03 23:21 | NUR ---
disregard physical assessment by me dated 08/02- wrong day.
[2020-08-04] VITALS (7 sets, daily range): BP systolic 101–157; BP diastolic 59–72
[2020-08-04] MEDS: piperacillin/tazo 3.375gm/50ml 50 ML IV SCH ×3 (00:28→16:18)
[2020-08-04] MEDS ORDERED: VANCOMYCIN LEVEL IV ONE (01:30)
[2020-08-04 02:03] LABS: ALANINE AMINOTRANSFERASE 45 U/L (12-78); ALBUMIN 2.2 G/DL (3.4-5.0); ALBUMIN/GLOBULIN RATIO 0.6 (1.1-1.5); ALKALINE PHOSPHATASE 80 IU/L (46-116); ANION GAP 11 (8-16); ASPARTATE AMINO TRANSFERASE 43 U/L (10-37); BILIRUBIN,TOTAL 0.6 MG/DL (0.1-1.0); BLOOD UREA NITROGEN 10 MG/DL (7-18); BUN/CREATININE RATIO 14.3 (5.4-32.0); CHLORIDE 101 MMOL/L (99-107); GLUCOSE 196 MG/DL (70-104); MAGNESIUM 1.7 MG/DL (1.5-2.4); PHOSPHORUS 2.5 MG/DL (2.3-4.5); POTASSIUM 3.2 MMOL/L (3.5-5.1); SODIUM 135 MMOL/L (135-145); TOTAL CARBON DIOXIDE 22.8 MMOL/L (24-32); TOTAL PROTEIN 6.2 G/DL (6.4-8.2); VANCOMYCIN,TROUGH 8.8 UG/ML (6.0-14.0); eGFR > 90 ML/MIN
[2020-08-04] MEDS: vancomycin/NS 1 GM ADD-VANTAGE 250 ML IV SCH (02:38)
[2020-08-04] MEDS: normal saline 1000ml 1,000 ML IV SCH ×3 (02:38→23:55)
[2020-08-04 05:07] LABS: EOSINOPHILS # (AUTO) 0.1 X10'3 (0-0.9); LYMPHOCYTES # (AUTO) 1.8 X10'3 (1.1-4.8); MEAN CORPUSCULAR VOLUME 90.5 FL (78-98); MEAN PLATELET VOLUME 7.6 FL (7.4-10.4)
[2020-08-04 05:09] LABS: BASOPHILS % (AUTO) 0.4 % (0-1); EOSINOPHILS % (AUTO) 0.9 % (0-6); HEMATOCRIT 29.4 % (42.0-52.0); HEMOGLOBIN 9.7 g/dl (14.0-17.9); LYMPHOCYTES % (AUTO) 14.8 % (21-51); MEAN CORPUSCULAR HGB CONC 33.2 g/dL (33.0-36.5); MONOCYTES # (AUTO) 1.2 X10'3 (0-0.9); MONOCYTES % (AUTO) 9.3 % (2-12); NEUTROPHILS # (AUTO) 9.3 X10'3 (1.8-7.7); NEUTROPHILS % (AUTO) 74.6 % (42-75); PLATELET COUNT 255 X10'3 (140-440); RED BLOOD COUNT 3.25 X10'6 (4.70-6.10); RED CELL DISTRIBUTION WIDTH 13.8 % (11.5-14.5); WHITE BLOOD COUNT 12.4 X10'3 (4.5-11.0)
--- NOTE | 2020-08-04 06:15 | NUR ---
Patient in room PCU 3012. I have received report from Juan José LOPEZ and had the opportunity to ask questions and assume patient care.
[2020-08-04] MEDS: K and/or MAG REPLACEMENT MC SCH ×2 (08:00→19:01)
[2020-08-04] MEDS: docusate sod 100mg capsule PO SCH ×2 (08:28→19:07)
[2020-08-04] MEDS: sertraline 50mg tablet PO SCH (08:28)
[2020-08-04] MEDS: multivitamins, therapeutics tablet PO SCH (08:28)
[2020-08-04] MEDS: lactobacillus rhamnosus 10,000 MMU CELLS/CAPSULE PO SCH ×2 (08:28→19:01)
[2020-08-04] MEDS: ascorbic acid 500mg tablet PO SCH ×3 (08:28→20:50)
[2020-08-04] MEDS: amiodarone 200mg tablet PO SCH (08:28)
[2020-08-04] MEDS: polyethylene glycol 3350 17gm powd pack PO SCH (08:29)
[2020-08-04] MEDS: potassium Cl 20 mEq SR tablet PO PRN ×3 (08:29→20:50)
--- NOTE | 2020-08-04 09:16 | NUR ---
Spoke with Dr. Leyva concerning Pt and plan for the day. Dr. Leyva wants to take Pt out of restraints, let him eat breakfast and relax for now and then go from there.
--- NOTE | 2020-08-04 09:18 | NUR ---
Pt out of restraints and eating breakfast. Pt cooperating
[2020-08-04] MEDS: insulin Lispro (HumaLOG) vial - multi-dose SQ SCH ×2 (09:43→19:01)
[2020-08-04] MEDS: heparin, porcine 5000 units/ml vial SQ SCH ×2 (12:44→20:55)
[2020-08-04] MEDS ORDERED: iohexol 350MG/ML 100ml bottle IV ONE (15:11)
--- NOTE | 2020-08-04 18:20 | NUR ---
Problems reprioritized. Patient report given, questions answered & plan of care reviewed with Huma RN.
--- NOTE | 2020-08-04 18:24 | NUR ---
Patient in room PCU 3012. I have received report from JOHN Bojorquez and had the opportunity to ask questions and assume patient care.
[2020-08-04] MEDS: sennosides 8.6mg tablet PO SCH (20:11)
[2020-08-04] MEDS ORDERED: potassium Cl 20 mEq SR tablet PO PRN (20:40)
[2020-08-04] MEDS ORDERED: potassium CL 10mEq/100ml bag 100 ML IV PRN (20:40)
[2020-08-04] MEDS: atorvastatin 20mg tablet PO SCH (20:50)
[2020-08-04] MEDS: quetiapine 100mg tablet PO SCH (20:50)
[2020-08-04] MEDS: mirtazapine 15mg tablet PO SCH (20:52)
[2020-08-04] MEDS: insulin glargine (Lantus) pen - multi-dose SQ SCH (21:27)
--- NOTE | 2020-08-04 23:00 | NUR ---
Problems reprioritized. Patient report given, questions answered & plan of care reviewed with JOHN Paiz.
--- NOTE | 2020-08-04 23:00 | NUR ---
Patient in room PCU 3012. I have received report from Hillary LOPEZ and had the opportunity to ask questions and assume patient care.
--- NOTE | 2020-08-05 02:46 | NUR ---
Patient refused 0200 vitals, patient in no distress, sleeping comfortably.
[2020-08-05 04:56] LABS: BASOPHILS % (AUTO) 0.2 % (0-1); EOSINOPHILS # (AUTO) 0.2 X10'3 (0-0.9); EOSINOPHILS % (AUTO) 1.1 % (0-6); HEMATOCRIT 33.6 % (42.0-52.0); HEMOGLOBIN 10.9 g/dl (14.0-17.9); LYMPHOCYTES # (AUTO) 1.9 X10'3 (1.1-4.8); MEAN CORPUSCULAR HEMOGLOBIN 29.6 PG (27.0-31.0); MEAN CORPUSCULAR HGB CONC 32.4 g/dL (33.0-36.5); MEAN CORPUSCULAR VOLUME 91.3 FL (78-98); MEAN PLATELET VOLUME 7.5 FL (7.4-10.4); MONOCYTES # (AUTO) 1.3 X10'3 (0-0.9); MONOCYTES % (AUTO) 8.3 % (2-12); NEUTROPHILS # (AUTO) 12.5 X10'3 (1.8-7.7); NEUTROPHILS % (AUTO) 78.4 % (42-75); PLATELET COUNT 289 X10'3 (140-440); RED BLOOD COUNT 3.68 X10'6 (4.70-6.10); RED CELL DISTRIBUTION WIDTH 14.1 % (11.5-14.5)
[2020-08-05 05:07] LABS: ALANINE AMINOTRANSFERASE 43 U/L (12-78); ALBUMIN 2.2 G/DL (3.4-5.0); ALBUMIN/GLOBULIN RATIO 0.5 (1.1-1.5); ALKALINE PHOSPHATASE 79 IU/L (46-116); ANION GAP 9 (8-16); ASPARTATE AMINO TRANSFERASE 48 U/L (10-37); BILIRUBIN,TOTAL 0.5 MG/DL (0.1-1.0); BLOOD UREA NITROGEN 6 MG/DL (7-18); BUN/CREATININE RATIO 9.2 (5.4-32.0); CALCIUM 8.4 MG/DL (8.5-10.1); CHLORIDE 103 MMOL/L (99-107); CREATININE 0.65 MG/DL (0.60-1.10); GLUCOSE 79 MG/DL (70-104); MAGNESIUM 1.8 MG/DL (1.5-2.4); PHOSPHORUS 2.6 MG/DL (2.3-4.5); SODIUM 135 MMOL/L (135-145); TOTAL CARBON DIOXIDE 22.9 MMOL/L (24-32); TOTAL PROTEIN 6.7 G/DL (6.4-8.2); eGFR > 90 ML/MIN
[2020-08-05 05:13] LABS: POTASSIUM 3.1 MMOL/L (3.5-5.1)
[2020-08-05] MEDS: potassium Cl 20 mEq SR tablet PO PRN ×3 (05:34→16:21)
[2020-08-05 06:00] VITALS: BP 145/64
--- NOTE | 2020-08-05 06:00 | NUR ---
Orientee documentation: I have reviewed and agree with all interventions, assessments performed and documented by JOHN Colón.
--- NOTE | 2020-08-05 06:37 | NUR ---
Patient in room PCU 3012. I have received report from Izabel LOPEZ and had the opportunity to ask questions and assume patient care.
--- NOTE | 2020-08-05 06:38 | NUR ---
Problems reprioritized. Patient report given, questions answered & plan of care reviewed with Reno LOPEZ.
[2020-08-05] MEDS: heparin, porcine 5000 units/ml vial SQ SCH ×3 (08:00→20:11)
[2020-08-05] MEDS: docusate sod 100mg capsule PO SCH ×2 (08:00→20:08)
[2020-08-05] MEDS: polyethylene glycol 3350 17gm powd pack PO SCH (08:00)
[2020-08-05] MEDS: K and/or MAG REPLACEMENT MC SCH ×2 (08:00→20:00)
[2020-08-05] MEDS: amiodarone 200mg tablet PO SCH (08:13)
[2020-08-05] MEDS: piperacillin/tazo 3.375gm/50ml 50 ML IV SCH ×3 (08:13→16:00)
[2020-08-05] MEDS: ascorbic acid 500mg tablet PO SCH ×3 (08:13→20:10)
[2020-08-05] MEDS: multivitamins, therapeutics tablet PO SCH (08:13)
[2020-08-05] MEDS: sertraline 50mg tablet PO SCH (08:13)
[2020-08-05] MEDS: lactobacillus rhamnosus 10,000 MMU CELLS/CAPSULE PO SCH ×2 (08:13→20:09)
[2020-08-05] MEDS ORDERED: traMADol 50MG tablet PO PRN (08:45)
[2020-08-05] MEDS: normal saline 1000ml 1,000 ML IV SCH ×2 (09:55→19:55)
[2020-08-05 11:00] VITALS: BP 182/71
[2020-08-05] MEDS: LORazepam 2 mg/ml vial IV PRN (13:48)
--- NOTE | 2020-08-05 13:50 | NUR ---
Pt became irritated and ripped IV out, threatened to hit sitter. Pt put in two point restraints and 1mg of IV ativan given. MD will be made aware.
--- NOTE | 2020-08-05 14:30 | NUR ---
Pt has become less combative. restraints removed. Will continue to monitor Pt.
[2020-08-05 15:00] VITALS: BP 182/59
--- NOTE | 2020-08-05 16:26 | NUR ---
PAGER ID: [phone] MESSAGE: Re: Isaias Avilez. Room: 3912B. Can pt eat dinner? Has Dr. Zuleta talked with concerning plan? [phone] Dr. Leyva paged concerning Pt's plan.
[2020-08-05 18:15] VITALS: BP 134/99
--- NOTE | 2020-08-05 18:30 | NUR ---
Patient in room PCU 3012. I have received report from MARIA GUADALUPE LOPEZ and had the opportunity to ask questions and assume patient care. Addendum: 08/05/20 at 1840 by Kat Pearson RN Amended: Links added.
--- NOTE | 2020-08-05 18:30 | NUR ---
Problems reprioritized. Patient report given, questions answered & plan of care reviewed with Kat LOPEZ.
[2020-08-05] MEDS: mirtazapine 15mg tablet PO SCH (20:09)
[2020-08-05] MEDS: sennosides 8.6mg tablet PO SCH (20:09)
[2020-08-05] MEDS: quetiapine 100mg tablet PO SCH (20:10)
[2020-08-05] MEDS: atorvastatin 20mg tablet PO SCH (20:10)
[2020-08-05] MEDS: insulin Lispro (HumaLOG) vial - multi-dose SQ SCH (20:24)
[2020-08-05 22:00] VITALS: BP 122/43
[2020-08-05] MEDS: insulin glargine (Lantus) pen - multi-dose SQ SCH (22:46)
[2020-08-06] MEDS: piperacillin/tazo 3.375gm/50ml 50 ML IV SCH ×3 (00:27→15:59)
[2020-08-06] MEDS ORDERED: VANCOMYCIN LEVEL IV ONE (01:30)
[2020-08-06 02:00] VITALS: BP 109/55
--- NOTE | 2020-08-06 02:30 | NUR ---
IV TUBING CHANGED WITH NEW SALINE HUNG AND ABX. POSITIONED TO COMFORT.
[2020-08-06] MEDS: normal saline 1000ml 1,000 ML IV SCH ×2 (02:32→14:31)
--- NOTE | 2020-08-06 02:41 | NUR ---
vanco trough drawn and iv ns with tubing change done with 3 people due to pt kicking and cursing staff and attempt to pull on stuff. pt with condom cath on and draining.
[2020-08-06 03:05] LABS: EOSINOPHILS # (AUTO) 0.2 X10'3 (0-0.9); EOSINOPHILS % (AUTO) 1.3 % (0-6); HEMATOCRIT 31.1 % (42.0-52.0); HEMOGLOBIN 10.3 g/dl (14.0-17.9); MEAN CORPUSCULAR HGB CONC 33.2 g/dL (33.0-36.5); MONOCYTES # (AUTO) 1.2 X10'3 (0-0.9)
[2020-08-06 03:06] LABS: BASOPHILS % (AUTO) 0.2 % (0-1); LYMPHOCYTES # (AUTO) 1.7 X10'3 (1.1-4.8); LYMPHOCYTES % (AUTO) 12.8 % (21-51); MEAN CORPUSCULAR VOLUME 90.2 FL (78-98); MEAN PLATELET VOLUME 7.3 FL (7.4-10.4); MONOCYTES % (AUTO) 9.4 % (2-12); NEUTROPHILS # (AUTO) 9.9 X10'3 (1.8-7.7); NEUTROPHILS % (AUTO) 76.3 % (42-75); PLATELET COUNT 282 X10'3 (140-440); RED BLOOD COUNT 3.45 X10'6 (4.70-6.10); RED CELL DISTRIBUTION WIDTH 13.8 % (11.5-14.5); WHITE BLOOD COUNT 12.9 X10'3 (4.5-11.0)
[2020-08-06 03:12] LABS: ALANINE AMINOTRANSFERASE 43 U/L (12-78); ALBUMIN/GLOBULIN RATIO 0.5 (1.1-1.5); ALKALINE PHOSPHATASE 76 IU/L (46-116); ANION GAP 7 (8-16); ASPARTATE AMINO TRANSFERASE 35 U/L (10-37); BILIRUBIN,TOTAL 0.5 MG/DL (0.1-1.0); BLOOD UREA NITROGEN 6 MG/DL (7-18); BUN/CREATININE RATIO 7.7 (5.4-32.0); CALCIUM 8.6 MG/DL (8.5-10.1); CHLORIDE 106 MMOL/L (99-107); CREATININE 0.78 MG/DL (0.60-1.10); GLUCOSE 105 MG/DL (70-104); PHOSPHORUS 2.7 MG/DL (2.3-4.5); POTASSIUM 3.1 MMOL/L (3.5-5.1); SODIUM 139 MMOL/L (135-145); TOTAL PROTEIN 6.3 G/DL (6.4-8.2); VANCOMYCIN,TROUGH 18.4 UG/ML (6.0-14.0); eGFR > 90 ML/MIN
--- NOTE | 2020-08-06 04:08 | NUR ---
resting at this time sitter at bedside
--- NOTE | 2020-08-06 06:56 | NUR ---
Patient in room PCU 3012. I have received report from Kat LOPEZ and had the opportunity to ask questions and assume patient care.
[2020-08-06] MEDS: docusate sod 100mg capsule PO SCH ×2 (08:00→21:45)
[2020-08-06] MEDS: polyethylene glycol 3350 17gm powd pack PO SCH (08:00)
[2020-08-06] MEDS: heparin, porcine 5000 units/ml vial SQ SCH ×2 (08:00→21:51)
[2020-08-06] MEDS: multivitamins, therapeutics tablet PO SCH (08:00)
[2020-08-06] MEDS: lactobacillus rhamnosus 10,000 MMU CELLS/CAPSULE PO SCH ×2 (08:00→21:50)
[2020-08-06] MEDS: amiodarone 200mg tablet PO SCH (08:00)
[2020-08-06] MEDS: ascorbic acid 500mg tablet PO SCH ×3 (08:00→21:44)
[2020-08-06] MEDS: sertraline 50mg tablet PO SCH (08:00)
[2020-08-06] MEDS: K and/or MAG REPLACEMENT MC SCH ×2 (08:00→20:00)
--- NOTE | 2020-08-06 09:45 | NUR ---
Patient very uncooperative, not able to give his oral medicines as he would not let me give it to him. He is sleepy, will open eyes when waking up but refusing to take his pills or even take some water
--- NOTE | 2020-08-06 09:49 | NUR ---
Patient did not ate breakfast, blood sugar this am was 152 mg/dl - will not cover the blood sugar with insulin at this time
[2020-08-06 11:00] VITALS: BP 166/73
--- NOTE | 2020-08-06 12:58 | NUR ---
Per sitter at bedside, Dr. Leyva came by not too long ago requested patient to be off wrist restraints to try if he is ready to be off restraints. Patient awake, calm at the moment.
--- NOTE | 2020-08-06 13:00 | NUR ---
Late entry: Patient blood sugar around noon time was 195mg/dl, patient refused insulin.
--- NOTE | 2020-08-06 13:04 | NUR ---
Mario feeding patient at this time
--- NOTE | 2020-08-06 13:26 | NUR ---
Mario called for help reporting patient was "choking". When I went to the room patient was coughing, able to talk to me, and denies short of breath. O2 sat was 95% on room air. Suction was set up at bedside, patient refused to be suctioned. Patient was instructed to be careful when he eat, to take time, and to take small bite at a time.
--- NOTE | 2020-08-06 13:30 | NUR ---
Paged Dr. Leyva PAGER ID: [phone] MESSAGE: TOÑO Ramirez RN ext [phone]. RE: Isaias Avilez. Patient had "choking" episode while eating. Patient was coughing but can talk, O2 sat normal on room air. Do you want ST eval order?
[2020-08-06] MEDS: potassium Cl 20 mEq SR tablet PO PRN (14:27)
[2020-08-06 15:00] VITALS: BP 176/73
--- NOTE | 2020-08-06 15:03 | NUR ---
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 Pt on a CHO controlled heart healthy diet with fluctuating PO intake, up to 50-75% at times however most recently down to 25% not meeting estimated nutrient needs. Pt documented as A/O x 1 and confused with a hx of dementia, with a sitter at bedside and in restraints. Noted that per RN note pt choked on lunch today. Recommend BSS with ST to assess need for appropriate texture modification. [facility] 08/05. Will continue to follow closely and make recommendations as appropriate pending BSS. Recommendations: 1) Consider diet liberalization to regular if poor PO intake continues; texture modification per ST pending BSS 2) Monitor need for ONS pending BSS 3) Routine bowel care 4) Scaled weights per rx Addendum: 08/06/20 at [address] Amended: Links added.
--- NOTE | 2020-08-06 15:11 | NUR ---
Patient blood sugar was 195 mg/dl, ate a little bit of his lunch. Patient refused to receive insulin
--- NOTE | 2020-08-06 17:41 | NUR ---
Blood sugar before dinner was 266mg/dl, explained to patient that his blood sugar went up because he refused insulin. Patient currently eating his dinner. Advised patient to accept insulin tonight as the blood sugar is high
[2020-08-06 18:00] VITALS: BP 151/71
--- NOTE | 2020-08-06 18:00 | NUR ---
Late entry Patient has been off restraints since we took it off per Dr. Leyva's request. Patient has been calm and follow instructions
--- NOTE | 2020-08-06 18:52 | NUR ---
Problems reprioritized. Patient report given, questions answered & plan of care reviewed with Ellyn LOPEZ.
--- NOTE | 2020-08-06 18:53 | NUR ---
Patient in room PCU 3012. I have received report from BLAINE LOPEZ and had the opportunity to ask questions and assume patient care.
[2020-08-06] MEDS: insulin Lispro (HumaLOG) vial - multi-dose SQ SCH (19:20)
[2020-08-06] MEDS: sennosides 8.6mg tablet PO SCH (21:43)
[2020-08-06] MEDS: atorvastatin 20mg tablet PO SCH (21:44)
[2020-08-06] MEDS: mirtazapine 15mg tablet PO SCH (21:44)
[2020-08-06] MEDS: quetiapine 100mg tablet PO SCH (21:44)
[2020-08-06] MEDS: HYDROcodone/acetaminophen 10/325mg tab PO PRN (21:52)
[2020-08-06 22:00] VITALS: BP 160/77
[2020-08-06] MEDS: insulin glargine (Lantus) pen - multi-dose SQ SCH (22:10)
[2020-08-07] MEDS: piperacillin/tazo 3.375gm/50ml 50 ML IV SCH ×3 (01:01→15:55)
[2020-08-07] MEDS: potassium Cl 20 mEq SR tablet PO PRN (01:01)
[2020-08-07 02:00] VITALS: BP 108/51
[2020-08-07] MEDS: normal saline 1000ml 1,000 ML IV SCH ×3 (03:19→17:09)
[2020-08-07 06:00] VITALS: BP 147/64
--- NOTE | 2020-08-07 07:08 | NUR ---
Patient in room PCU 3012. I have received report from JOHANNA SPENCER RN and had the opportunity to ask questions and assume patient care.
[2020-08-07] MEDS: K and/or MAG REPLACEMENT MC SCH ×2 (08:00→20:00)
[2020-08-07] MEDS: amiodarone 200mg tablet PO SCH (08:25)
[2020-08-07] MEDS: docusate sod 100mg capsule PO SCH ×2 (08:25→22:38)
[2020-08-07] MEDS: lactobacillus rhamnosus 10,000 MMU CELLS/CAPSULE PO SCH ×2 (08:25→22:39)
[2020-08-07] MEDS: polyethylene glycol 3350 17gm powd pack PO SCH (08:26)
[2020-08-07] MEDS: multivitamins, therapeutics tablet PO SCH (08:27)
[2020-08-07] MEDS: ascorbic acid 500mg tablet PO SCH ×3 (08:27→22:37)
[2020-08-07] MEDS: sertraline 50mg tablet PO SCH (08:27)
[2020-08-07] MEDS: heparin, porcine 5000 units/ml vial SQ SCH ×2 (08:28→20:00)
[2020-08-07] MEDS: insulin Lispro (HumaLOG) vial - multi-dose SQ SCH ×3 (09:45→22:33)
[2020-08-07 11:00] VITALS: BP 154/68
[2020-08-07 15:00] VITALS: BP 126/74
--- NOTE | 2020-08-07 16:35 | NUR ---
BETADINE APPLIED TO LEFT SECOND TOE PER ORDERS. NO ONE CAN FIND OUR CAMERA TO TAKE SATURDAY PICTURES. INFORMED UNRULY LUCIO RN.
[2020-08-07 18:00] VITALS: BP 150/72
--- NOTE | 2020-08-07 18:33 | NUR ---
Problems reprioritized. Patient report given, questions answered & plan of care reviewed with JOHN RAMIREZ.
--- NOTE | 2020-08-07 18:44 | NUR ---
Patient in room PCU 3012. I have received report from Shiva LOPEZ and had the opportunity to ask questions and assume patient care. Sitter at bedside. Pt has no signs of distress, will continue to monitor.
[2020-08-07 22:00] VITALS: BP 157/64
[2020-08-07] MEDS: insulin glargine (Lantus) pen - multi-dose SQ SCH (22:34)
[2020-08-07] MEDS: atorvastatin 20mg tablet PO SCH (22:36)
[2020-08-07] MEDS: sennosides 8.6mg tablet PO SCH (22:37)
[2020-08-07] MEDS: quetiapine 100mg tablet PO SCH (22:37)
[2020-08-07] MEDS: mirtazapine 15mg tablet PO SCH (22:38)
--- NOTE | 2020-08-07 22:44 | NUR ---
orostatic vitals not taken due to the fact that pt is unable to bear weight on left foot due to infection. Pt also refused regular vitals. Currently altered mental status at this time
[2020-08-08] MEDS: piperacillin/tazo 3.375gm/50ml 50 ML IV SCH ×4 (00:58→23:38)
[2020-08-08] MEDS: HYDROcodone/acetaminophen 10/325mg tab PO PRN (01:01)
[2020-08-08 02:00] VITALS: BP 91/50
[2020-08-08] MEDS: normal saline 1000ml 1,000 ML IV SCH ×2 (02:26→13:54)
[2020-08-08 06:00] VITALS: BP 103/44
--- NOTE | 2020-08-08 06:26 | NUR ---
Problems reprioritized. Patient report given, questions answered & plan of care reviewed with Shiva RN.
--- NOTE | 2020-08-08 06:27 | NUR ---
Patient in room PCU 3012. I have received report from JOHN RAMIREZ and had the opportunity to ask questions and assume patient care.
[2020-08-08] MEDS: ascorbic acid 500mg tablet PO SCH ×3 (08:00→19:42)
[2020-08-08] MEDS: K and/or MAG REPLACEMENT MC SCH ×2 (08:00→20:00)
[2020-08-08] MEDS: lactobacillus rhamnosus 10,000 MMU CELLS/CAPSULE PO SCH ×2 (08:00→19:43)
[2020-08-08] MEDS: sertraline 50mg tablet PO SCH (08:00)
[2020-08-08] MEDS: multivitamins, therapeutics tablet PO SCH (08:00)
[2020-08-08] MEDS: docusate sod 100mg capsule PO SCH ×2 (08:00→19:43)
[2020-08-08] MEDS: amiodarone 200mg tablet PO SCH (08:00)
[2020-08-08] MEDS: polyethylene glycol 3350 17gm powd pack PO SCH (08:00)
[2020-08-08] MEDS: insulin Lispro (HumaLOG) vial - multi-dose SQ SCH ×3 (08:52→19:49)
--- NOTE | 2020-08-08 09:26 | NUR ---
DR. UNDERWOOD NOTIFIED OF UNABLE TO WAKE PT, WAS UP MOST OF NIGHT, REFUSING TO HAVE TELE ON. UNABLE TO GIVE AM PO MEDS, R.T APPEARS TO BE SLEEPING, AND NPO FOR POSSIBLE SURGERY TODAY, AND TAKES MEDS WITH YOGURT.
[2020-08-08 11:00] VITALS: BP 117/52
--- NOTE | 2020-08-08 13:45 | NUR ---
PAGER ID: [phone] MESSAGE: DR. UNDERWOOD, [id number]/GRACE, NOW WIDE AWAKE. ASKED IF THE WAS GOING TO SEE HIM TODAY, I EXPLAINED YOU DID SEE HIM, BUT HE WAS OUT. HE IS REQUESTING ANOTHER VISIT FROM YOU. TU 2205/1162. OCTAVIO
[2020-08-08 15:00] VITALS: BP 134/58
--- NOTE | 2020-08-08 16:25 | NUR ---
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 Pt on a CHO controlled heart healthy diet with fluctuating PO intake, up to 50-75% at times however most recently down to 25% not meeting estimated nutrient needs. Pt documented as A/O x 1 and confused with a hx of dementia, with a sitter at bedside and in restraints. Noted that per RN note pt choked on lunch today. Recommend BSS with ST to assess need for appropriate texture modification. [facility] 08/05. Will continue to follow closely and make recommendations as appropriate pending BSS. Recommendations: 1) Advance diet as medically indicated to regular d/t poor PO intake; texture modification per ST pending BSS 2) Monitor need for ONS pending diet advancement and BSS 3) Bowel care per rx 4) Scaled weights per rx Addendum: 08/08/20 at [address] Amended: Links added. Addendum: 08/08/20 at [address] RD agree with director international note
[2020-08-08 18:00] VITALS: BP 115/53
--- NOTE | 2020-08-08 18:56 | NUR ---
Problems reprioritized. Patient report given, questions answered & plan of care reviewed with JOHN CAN.
[2020-08-08] MEDS: atorvastatin 20mg tablet PO SCH (19:41)
[2020-08-08] MEDS: quetiapine 100mg tablet PO SCH (19:41)
[2020-08-08] MEDS: sennosides 8.6mg tablet PO SCH (19:42)
[2020-08-08] MEDS: mirtazapine 15mg tablet PO SCH (19:43)
[2020-08-08] MEDS: heparin, porcine 5000 units/ml vial SQ SCH (20:00)
[2020-08-08 22:00] VITALS: BP 96/47
[2020-08-08] MEDS: insulin glargine (Lantus) pen - multi-dose SQ SCH (22:10)
[2020-08-09] MEDS: normal saline 1000ml 1,000 ML IV SCH ×3 (00:55→23:55)
[2020-08-09 02:00] VITALS: BP 103/50
--- NOTE | 2020-08-09 04:04 | NUR ---
PAGER ID: [phone] MESSAGE: [phone] FYI TEMP 100.4, Awaiting amputation, please ask day shift to f/u. Its been 3 days since consult and no progress toward surgery. - [phone]
--- NOTE | 2020-08-09 05:05 | NUR ---
REPORT GIVEN TO JOHN RAMIREZ,ALL QUESTIONS ANSWERED.TRANSFERRED SLEEPING PER BED BREATHING EVEN AND UNLABOURED WITH BELONGINGS.
--- NOTE | 2020-08-09 05:20 | NUR ---
Patient in room RHONA 340. I have received report from Rosangela RN and had the opportunity to ask questions and assume patient care.
--- NOTE | 2020-08-09 06:12 | NUR ---
Problems reprioritized. Patient report given, questions answered & plan of care reviewed with Katiuska LOPEZ. Pt is currently sleeping with sitter at bedside. No signs of distress at this time.
--- NOTE | 2020-08-09 06:59 | NUR ---
Patient in room RHONA 340. I have received report from Mabel LOPEZ and had the opportunity to ask questions and assume patient care.
[2020-08-09 07:00] VITALS: BP 90/50
[2020-08-09 08:00] VITALS: BP 109/55
[2020-08-09] MEDS: K and/or MAG REPLACEMENT MC SCH ×2 (08:00→20:00)
[2020-08-09] MEDS: heparin, porcine 5000 units/ml vial SQ SCH ×2 (08:00→20:00)
[2020-08-09] MEDS: polyethylene glycol 3350 17gm powd pack PO SCH (08:00)
[2020-08-09 08:38] LABS: BASOPHILS # (AUTO) 0.1 X10'3 (0-0.2); BASOPHILS % (AUTO) 0.7 % (0-1); EOSINOPHILS # (AUTO) 0.1 X10'3 (0-0.9); HEMOGLOBIN 9.9 g/dl (14.0-17.9); LYMPHOCYTES # (AUTO) 1.2 X10'3 (1.1-4.8); LYMPHOCYTES % (AUTO) 10.9 % (21-51); MEAN CORPUSCULAR HGB CONC 34.2 g/dL (33.0-36.5); MEAN CORPUSCULAR VOLUME 90.7 FL (78-98); MEAN PLATELET VOLUME 7.1 FL (7.4-10.4); MONOCYTES % (AUTO) 9.3 % (2-12); NEUTROPHILS # (AUTO) 8.3 X10'3 (1.8-7.7); NEUTROPHILS % (AUTO) 78.1 % (42-75); PLATELET COUNT 295 X10'3 (140-440); RED CELL DISTRIBUTION WIDTH 14.1 % (11.5-14.5); WHITE BLOOD COUNT 10.6 X10'3 (4.5-11.0)
[2020-08-09 08:43] LABS: ALBUMIN 1.5 G/DL (3.4-5.0); ANION GAP 8 (8-16); BLOOD UREA NITROGEN 11 MG/DL (7-18); BUN/CREATININE RATIO 12.4 (5.4-32.0); CALCIUM 7.5 MG/DL (8.5-10.1); CHLORIDE 107 MMOL/L (99-107); CREATININE 0.89 MG/DL (0.60-1.10); GLUCOSE 251 MG/DL (70-104); SODIUM 140 MMOL/L (135-145); TOTAL CARBON DIOXIDE 25.1 MMOL/L (24-32); eGFR 81 ML/MIN
[2020-08-09 08:45] LABS: POTASSIUM 2.6 MMOL/L (3.5-5.1)
[2020-08-09] MEDS: POTASSIUM BICARB 20meq eff tab 20 MEQ TABLET.EFF PO PRN ×3 (10:42→19:51)
[2020-08-09] MEDS: multivitamins, therapeutics tablet PO SCH (10:43)
[2020-08-09] MEDS: amiodarone 200mg tablet PO SCH (10:43)
[2020-08-09] MEDS: docusate sod 100mg capsule PO SCH ×2 (10:43→19:54)
[2020-08-09] MEDS: lactobacillus rhamnosus 10,000 MMU CELLS/CAPSULE PO SCH ×2 (10:43→19:53)
[2020-08-09] MEDS: sertraline 50mg tablet PO SCH (10:43)
[2020-08-09] MEDS: ascorbic acid 500mg tablet PO SCH ×3 (10:43→19:52)
[2020-08-09 11:00] VITALS: BP 107/54
[2020-08-09] MEDS: piperacillin/tazo 3.375gm/50ml 50 ML IV SCH ×2 (12:18→20:01)
[2020-08-09] MEDS: insulin Lispro (HumaLOG) vial - multi-dose SQ SCH (13:56)
--- NOTE | 2020-08-09 18:49 | NUR ---
Patient in room RHONA 340. I have received report from Katiuska LOPEZ and had the opportunity to ask questions and assume patient care. Pt is comfortable with sitter at bedside. No signs of distress, will continue to monitor.
[2020-08-09] MEDS: quetiapine 100mg tablet PO SCH (19:52)
[2020-08-09] MEDS: atorvastatin 20mg tablet PO SCH (19:53)
[2020-08-09] MEDS: mirtazapine 15mg tablet PO SCH (19:53)
[2020-08-09] MEDS: sennosides 8.6mg tablet PO SCH (19:54)
[2020-08-09 20:00] VITALS: BP_SYST 134; BP_SYST 146; BP_DIAS 62; BP_DIAS 85
[2020-08-09] MEDS: insulin glargine (Lantus) pen - multi-dose SQ SCH (21:31)
[2020-08-10] VITALS (20 sets, daily range): BP systolic 117–177; BP diastolic 49–81
[2020-08-10] MEDS: piperacillin/tazo 3.375gm/50ml 50 ML IV SCH ×3 (01:53→16:00)
--- NOTE | 2020-08-10 01:54 | NUR ---
Pt had to have IV placed by PICC nurse at end of day shift. 1600 Zosyn was started late, therefore 0000 Zosyn was also started late.
--- NOTE | 2020-08-10 06:13 | NUR ---
Problems reprioritized. Patient report given, questions answered & plan of care reviewed with Thea LOPEZ. Sitter at bedside. Pt currently calm and showing no signs of distress.
--- NOTE | 2020-08-10 06:51 | NUR ---
Patient in room RHONA 340. I have received report from JOHN Monroe and had the opportunity to ask questions and assume patient care.
[2020-08-10] MEDS: lactobacillus rhamnosus 10,000 MMU CELLS/CAPSULE PO SCH ×2 (07:39→22:38)
[2020-08-10] MEDS: multivitamins, therapeutics tablet PO SCH (07:39)
[2020-08-10] MEDS: ascorbic acid 500mg tablet PO SCH ×4 (07:39→22:40)
[2020-08-10] MEDS: amiodarone 200mg tablet PO SCH (07:39)
[2020-08-10] MEDS: docusate sod 100mg capsule PO SCH ×2 (07:39→22:41)
[2020-08-10] MEDS: sertraline 50mg tablet PO SCH (07:39)
[2020-08-10] MEDS: polyethylene glycol 3350 17gm powd pack PO SCH (08:00)
[2020-08-10] MEDS: heparin, porcine 5000 units/ml vial SQ SCH ×2 (08:00→22:41)
[2020-08-10] MEDS: K and/or MAG REPLACEMENT MC SCH ×2 (08:00→20:00)
--- NOTE | 2020-08-10 09:51 | NUR ---
Pt refused his 0700 vitals. Addendum: 08/10/20 at 0951 by Katiuska Hirsch RN Amended: Links added.
[2020-08-10] MEDS: normal saline 1000ml 1,000 ML IV SCH (09:55)
--- NOTE | 2020-08-10 11:06 | NUR ---
Spoke to HERB Turner about pt possible surgery today; stated She will come in to consult pt in around 15 minutes.
[2020-08-10] MEDS: POTASSIUM BICARB 20meq eff tab 20 MEQ TABLET.EFF PO PRN ×2 (12:02→22:37)
[2020-08-10 14:34] LABS: BASOPHILS # (AUTO) 0.1 X10'3 (0-0.2); BASOPHILS % (AUTO) 0.5 % (0-1); EOSINOPHILS # (AUTO) 0.1 X10'3 (0-0.9); EOSINOPHILS % (AUTO) 1.2 % (0-6); LYMPHOCYTES # (AUTO) 1.5 X10'3 (1.1-4.8); LYMPHOCYTES % (AUTO) 13.4 % (21-51); MEAN CORPUSCULAR HEMOGLOBIN 29.6 PG (27.0-31.0); MEAN CORPUSCULAR HGB CONC 32.8 g/dL (33.0-36.5); MEAN CORPUSCULAR VOLUME 90.5 FL (78-98); MEAN PLATELET VOLUME 7.1 FL (7.4-10.4); MONOCYTES % (AUTO) 9.3 % (2-12); NEUTROPHILS # (AUTO) 8.5 X10'3 (1.8-7.7); NEUTROPHILS % (AUTO) 75.6 % (42-75); PRE OP HEMATOCRIT 32.3 % (42.0-52.0); PRE OP PLATELET COUNT 348 X10'3 (140-440); RED BLOOD COUNT 3.57 X10'6 (4.70-6.10); RED CELL DISTRIBUTION WIDTH 14.3 % (11.5-14.5)
[2020-08-10 14:38] LABS: PRE OP HEMOGLOBIN 10.6 g/dL (14.0-17.9)
--- NOTE | 2020-08-10 14:52 | NUR ---
Dr Leyva informed about pt's Hgb level. PAGER ID: [phone] MESSAGE: Shante med/surg [phone]. Pt Raghav. Rm:: 340-B Pre op lab: Hgb 10.6 Do you want me to order type and screen? thank you.
--- NOTE | 2020-08-10 15:18 | NUR ---
Pt out to OR.
[2020-08-10] MEDS ORDERED: ringers solution, lacted 1,000 ML IV SCH (16:15)
[2020-08-10] MEDS ORDERED: ondansetron/PF 4mg/2ml inj IV PRN (16:15)
[2020-08-10] MEDS ORDERED: morphine 2 MG/ML inj. syringe IV PRN (16:15)
[2020-08-10] MEDS ORDERED: HYDROmorphone/PF 0.2 MG/ML SYRINGE IV PRN (16:15)
[2020-08-10] MEDS ORDERED: midazolam 2 mg/2 ml injection ONE (16:20)
[2020-08-10] MEDS ORDERED: fentaNYL/PF 50MCG/1 ML 2ML syringe ONE ×2 (16:20→16:39)
[2020-08-10] MEDS ORDERED: ketamine 50 mg/ml 10ml vial ONE (16:27)
[2020-08-10] MEDS ORDERED: propofol inj 20 ML IV ONE (16:55)
--- NOTE | 2020-08-10 16:58 | NUR ---
RECEIVED FROM OR VIA BED ACCOMPANIED BY ANESTHESIOLOGIST DR PICHARDO, REPORT GIVEN. PT DROWSY BUT AROUSES WITH NO COMPLAINT OF PAIN. 20 GAUGE PIV R UE PATENT AND RUNNING NS AT 50 ML/HR. DRESSING L FOOT CDI. COOLEY, VSS, SKIN PINK AND WARM WITH BRISK CAP REFILL. RESTING COMFORTABLY.
--- NOTE | 2020-08-10 18:00 | NUR ---
Patient in room RHONA 340. I have received report from Shante LOPEZ and had the opportunity to ask questions and assume patient care.
--- NOTE | 2020-08-10 18:28 | NUR ---
TRANSPORTED VIA BED ACCOMPANIED BY MYSELF, REPORT GIVEN. PT DROWSY BUT AROUSES WITH NO COMPLAINT OF PAIN. 20 GAUGE PIV R UE PATENT AND RUNNING NS AT 50 ML/HR. DRESSING L FOOT CDI. COOLEY, VSS, SKIN PINK AND WARM WITH BRISK CAP REFILL. RESTING COMFORTABLY. LEFT IN CARE OF YUSEF LOPEZ.
--- NOTE | 2020-08-10 18:30 | NUR ---
Received report from Katarzyna from OR. Patient VSS. O2 sat at 95 % Alert and orient to name and place. Addendum: 08/10/20 at 1909 by Tiffanie Herrmann RN VSS 159/70, HR 112, 19. No c/o of pain. Dressing on L foot dry and intact. Will continue to monitor.
--- NOTE | 2020-08-10 18:49 | NUR ---
Problems reprioritized. Patient report given, questions answered & plan of care reviewed with JOHN Moreno. Reveived post op report from [facility] bench precision assembler.
[2020-08-10] MEDS: insulin glargine (Lantus) pen - multi-dose SQ SCH ×2 (21:00)
[2020-08-10] MEDS: acetaminophen 325mg tablet PO SCH (21:00)
[2020-08-10] MEDS ORDERED: warfarin 1mg tablet PO SCH (21:00)
[2020-08-10] MEDS: quetiapine 100mg tablet PO SCH (22:38)
[2020-08-10] MEDS: atorvastatin 20mg tablet PO SCH (22:39)
[2020-08-10] MEDS: sennosides 8.6mg tablet PO SCH (22:40)
[2020-08-10] MEDS: mirtazapine 15mg tablet PO SCH (22:46)
--- NOTE | 2020-08-10 23:31 | NUR ---
Coumadin held 1.5 mg per Jane, INR was at 2.9 on 08/02. Awaiting stat INR lab for pharmacy to dose.
[2020-08-10] MEDS ORDERED: warfarin 1mg tablet PO ONE (23:45)
[2020-08-11 00:15] VITALS: BP 160/78
[2020-08-11] MEDS: piperacillin/tazo 3.375gm/50ml 50 ML IV SCH ×3 (00:42→16:00)
--- NOTE | 2020-08-11 03:00 | NUR ---
MD notified of patient has had no urine output. Bladder scanned with residual of 433 ml. Order to straight cath in place.
--- NOTE | 2020-08-11 03:19 | NUR ---
Straight cath as per MD's order, removed 600 ml of urine. Patient tolerated procedure well.
[2020-08-11] MEDS: POTASSIUM BICARB 20meq eff tab 20 MEQ TABLET.EFF PO PRN (03:29)
[2020-08-11] MEDS: normal saline 1000ml 1,000 ML IV SCH (04:50)
--- NOTE | 2020-08-11 05:00 | NUR ---
Patient lost IV site. Vancomycin was not completed. Damaris LOPEZ attempted to re-start IV, unable to start a line. notified.
--- NOTE | 2020-08-11 06:34 | NUR ---
Problems reprioritized. Patient report given, questions answered & plan of care reviewed with Deanna LOPEZ.
--- NOTE | 2020-08-11 06:38 | NUR ---
Patient in room RHONA 357B. I have received report from JOHN JASSO and had the opportunity to ask questions and assume patient care.
[2020-08-11 07:00] VITALS: BP 147/64
[2020-08-11] MEDS: K and/or MAG REPLACEMENT MC SCH ×2 (08:00→20:00)
[2020-08-11] MEDS: heparin, porcine 5000 units/ml vial SQ SCH ×2 (08:57→21:28)
[2020-08-11] MEDS: multivitamins, therapeutics tablet PO SCH (08:58)
[2020-08-11] MEDS: polyethylene glycol 3350 17gm powd pack PO SCH (08:58)
[2020-08-11] MEDS: sertraline 50mg tablet PO SCH (09:02)
[2020-08-11] MEDS: ascorbic acid 500mg tablet PO SCH ×4 (09:02→22:27)
[2020-08-11] MEDS: lactobacillus rhamnosus 10,000 MMU CELLS/CAPSULE PO SCH ×3 (09:02→22:25)
[2020-08-11] MEDS: acetaminophen 325mg tablet PO SCH ×4 (09:02→22:27)
[2020-08-11] MEDS: docusate sod 100mg capsule PO SCH ×3 (09:05→22:26)
[2020-08-11] MEDS: amiodarone 200mg tablet PO SCH (09:05)
[2020-08-11] MEDS: insulin Lispro (HumaLOG) vial - multi-dose SQ SCH (09:13)
[2020-08-11 09:33] LABS: BASOPHILS # (AUTO) 0.1 X10'3 (0-0.2); BASOPHILS % (AUTO) 0.7 % (0-1); EOSINOPHILS # (AUTO) 0.1 X10'3 (0-0.9); EOSINOPHILS % (AUTO) 0.9 % (0-6); HEMATOCRIT 32.3 % (42.0-52.0); HEMOGLOBIN 10.5 g/dl (14.0-17.9); LYMPHOCYTES # (AUTO) 1.2 X10'3 (1.1-4.8); LYMPHOCYTES % (AUTO) 9.4 % (21-51); MEAN CORPUSCULAR HEMOGLOBIN 29.5 PG (27.0-31.0); MEAN CORPUSCULAR HGB CONC 32.4 g/dL (33.0-36.5); MEAN PLATELET VOLUME 7.1 FL (7.4-10.4); MONOCYTES % (AUTO) 8.3 % (2-12); NEUTROPHILS % (AUTO) 80.7 % (42-75); PLATELET COUNT 347 X10'3 (140-440); RED BLOOD COUNT 3.55 X10'6 (4.70-6.10); RED CELL DISTRIBUTION WIDTH 14.5 % (11.5-14.5); WHITE BLOOD COUNT 12.4 X10'3 (4.5-11.0)
[2020-08-11 09:56] LABS: ALANINE AMINOTRANSFERASE 37 U/L (12-78); ALBUMIN 1.8 G/DL (3.4-5.0); ALBUMIN/GLOBULIN RATIO 0.4 (1.1-1.5); ALKALINE PHOSPHATASE 69 IU/L (46-116); ANION GAP 10 (8-16); ASPARTATE AMINO TRANSFERASE 44 U/L (10-37); BILIRUBIN,TOTAL 0.6 MG/DL (0.1-1.0); BLOOD UREA NITROGEN 14 MG/DL (7-18); BUN/CREATININE RATIO 8.4 (5.4-32.0); CALCIUM 8.1 MG/DL (8.5-10.1); CHLORIDE 107 MMOL/L (99-107); CREATININE 1.67 MG/DL (0.60-1.10); GLUCOSE 274 MG/DL (70-104); SODIUM 142 MMOL/L (135-145); TOTAL PROTEIN 6.1 G/DL (6.4-8.2); eGFR 39 ML/MIN
[2020-08-11 10:01] LABS: POTASSIUM 4.3 MMOL/L (3.5-5.1)
[2020-08-11 11:00] VITALS: BP 132/65
--- NOTE | 2020-08-11 15:37 | NUR ---
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 Pt documented as NPO 08/10. Patient's diet has been advanced to CHO controlled, pending documentation of PO intake for 08/11, previously with fluctuating PO intake averaging 50%. ST with no recommended texture modification s/p BSS today, just states that pt needs reminders to wear dentures when eating. Recommend ONS for additional protein needs for wound healing, see below. ONS to be sent with MD approval in EMR. [facility] 08/10. Will continue to follow closely and monitor need for further nutrition intervention. Recommendations: 1) Advance diet as medically indicated to regular d/t poor PO intake and geriatric age 2) Herber smoothie BIDBD for wound healing needs, Glucerna q lunch 3) Routine bowel care 4) Scaled weights per rx Addendum: 08/11/20 at [address] Amended: Links added.
--- NOTE | 2020-08-11 18:45 | NUR ---
Problems reprioritized. Patient report given, questions answered & plan of care reviewed with JOHANNA SPENCER RN.
--- NOTE | 2020-08-11 19:22 | NUR ---
AFTERNOON MEDS WERE NOT GIVEN DUE TO CASE LOAD
--- NOTE | 2020-08-11 19:24 | NUR ---
Patient in room RHONA 357. I have received report from MOHSEN LOPEZ and had the opportunity to ask questions and assume patient care.
[2020-08-11] MEDS ORDERED: warfarin 3mg tablet PO ONE (21:00)
[2020-08-11] MEDS: insulin glargine (Lantus) pen - multi-dose SQ SCH (21:00)
[2020-08-11] MEDS: mirtazapine 15mg tablet PO SCH ×2 (21:00→21:10)
[2020-08-11] MEDS: sennosides 8.6mg tablet PO SCH ×2 (21:09→22:26)
[2020-08-11] MEDS: quetiapine 100mg tablet PO SCH ×2 (21:10→22:27)
[2020-08-11] MEDS: atorvastatin 20mg tablet PO SCH ×2 (21:12→22:26)
--- NOTE | 2020-08-11 21:15 | NUR ---
PATIENT REFUSED TO TAKE HIS MEDICINES EVEN AFTER SEVERAL ATTEMPTS AND EXPLANATIONS OF THE NEED TO TAKE IT, BUT BECAME VERBALLY LOUD.
--- NOTE | 2020-08-11 21:30 | NUR ---
PATIENT ALSO REFUSED TO HAVE HIS BLOOD SUGAR CHECKED, VERY UNCOOPERATIVE WITH CARE.
[2020-08-12] MEDS: piperacillin/tazo 3.375gm/50ml 50 ML IV SCH ×3 (00:14→16:09)
[2020-08-12] MEDS: HYDROcodone/acetaminophen 10/325mg tab PO PRN (00:14)
[2020-08-12] MEDS: normal saline 1000ml 1,000 ML IV SCH ×2 (00:50→16:12)
--- NOTE | 2020-08-12 02:45 | NUR ---
PATIENT INCONTINENT OF URINE, NAKED WITH PIV ALREADY PULLED OUT WITH CANNULA INTACT. PATIENT VERBALLY AGGRESSIVE WITH STAFF WHEN ASKED TO TURN TO CHANGE HIS BED LINENS. PATIENT BECOMING PHYSICALLY AGGRESSIVE WITH BED CHANGE WITH 4 STAFF AROUND TO HELP WITH SUCCESS. PATIENT REFUSED TO WEAR GOWN, KICKED HIS COVERS DOWN AND NAKED.
[2020-08-12 05:14] LABS: BASOPHILS # (AUTO) 0.1 X10'3 (0-0.2); BASOPHILS % (AUTO) 0.6 % (0-1); EOSINOPHILS # (AUTO) 0.2 X10'3 (0-0.9); EOSINOPHILS % (AUTO) 1.3 % (0-6); HEMATOCRIT 34.8 % (42.0-52.0); HEMOGLOBIN 11.6 g/dl (14.0-17.9); LYMPHOCYTES # (AUTO) 1.3 X10'3 (1.1-4.8); MEAN CORPUSCULAR HGB CONC 33.2 g/dL (33.0-36.5); MEAN CORPUSCULAR VOLUME 90.3 FL (78-98); MEAN PLATELET VOLUME 7.2 FL (7.4-10.4); MONOCYTES % (AUTO) 8.8 % (2-12); NEUTROPHILS # (AUTO) 9.2 X10'3 (1.8-7.7); NEUTROPHILS % (AUTO) 78.3 % (42-75); PLATELET COUNT 404 X10'3 (140-440); RED BLOOD COUNT 3.86 X10'6 (4.70-6.10); RED CELL DISTRIBUTION WIDTH 14.2 % (11.5-14.5); WHITE BLOOD COUNT 11.8 X10'3 (4.5-11.0)
[2020-08-12 05:22] LABS: ALANINE AMINOTRANSFERASE 36 U/L (12-78); ALBUMIN/GLOBULIN RATIO 0.4 (1.1-1.5); ALKALINE PHOSPHATASE 75 IU/L (46-116); ANION GAP 10 (8-16); ASPARTATE AMINO TRANSFERASE 40 U/L (10-37); BILIRUBIN,TOTAL 0.5 MG/DL (0.1-1.0); BLOOD UREA NITROGEN 22 MG/DL (7-18); BUN/CREATININE RATIO 9.7 (5.4-32.0); CALCIUM 8.3 MG/DL (8.5-10.1); CHLORIDE 101 MMOL/L (99-107); CREATININE 2.26 MG/DL (0.60-1.10); GLUCOSE 327 MG/DL (70-104); POTASSIUM 4.1 MMOL/L (3.5-5.1); SODIUM 136 MMOL/L (135-145); TOTAL CARBON DIOXIDE 24.7 MMOL/L (24-32); TOTAL PROTEIN 6.6 G/DL (6.4-8.2); eGFR 28 ML/MIN
--- NOTE | 2020-08-12 06:37 | NUR ---
Problems reprioritized. Patient report given, questions answered & plan of care reviewed with ANGEL LOPEZ.
--- NOTE | 2020-08-12 06:51 | NUR ---
Patient in room RHONA 357. I have received report from gwen hidalgo rn and had the opportunity to ask questions and assume patient care.
[2020-08-12] MEDS: K and/or MAG REPLACEMENT MC SCH ×2 (07:15→20:00)
[2020-08-12 08:00] VITALS: BP 127/79
[2020-08-12] MEDS: heparin, porcine 5000 units/ml vial SQ SCH ×2 (08:29→20:00)
[2020-08-12] MEDS: amiodarone 200mg tablet PO SCH (08:29)
[2020-08-12] MEDS: sertraline 50mg tablet PO SCH (08:29)
[2020-08-12] MEDS: ascorbic acid 500mg tablet PO SCH ×3 (08:30→22:06)
[2020-08-12] MEDS: acetaminophen 325mg tablet PO SCH ×3 (08:30→21:00)
[2020-08-12] MEDS: polyethylene glycol 3350 17gm powd pack PO SCH (08:30)
[2020-08-12] MEDS: multivitamins, therapeutics tablet PO SCH (08:30)
[2020-08-12] MEDS: lactobacillus rhamnosus 10,000 MMU CELLS/CAPSULE PO SCH ×2 (08:30→22:06)
[2020-08-12] MEDS: docusate sod 100mg capsule PO SCH ×2 (08:30→22:05)
[2020-08-12] MEDS ORDERED: LORazepam 2 mg/ml vial IM ONE (09:40)
[2020-08-12] MEDS ORDERED: OLANZapine **IM** 10 mg inj. IM ONE (09:45)
[2020-08-12] MEDS: insulin Lispro (HumaLOG) vial - multi-dose SQ SCH (09:50)
--- NOTE | 2020-08-12 12:30 | NUR ---
PT REFUSED BLOOD SUGAR, BECAME COMBATIVE
--- NOTE | 2020-08-12 14:17 | NUR ---
PICC Insertion in Right Upper Arm (Brachial). Infinit Solo Catheter (Double Lumen). 50cm Length, 5cm Out, 32cm Arm Circ. REF [id number] LOT [id number] Exp. 05/30/21
--- NOTE | 2020-08-12 19:03 | NUR ---
Problems reprioritized. Patient report given, questions answered & plan of care reviewed with gwen hidalgo rn.
--- NOTE | 2020-08-12 19:04 | NUR ---
Patient in room RHONA 357. I have received report from ANGEL LOPEZ and had the opportunity to ask questions and assume patient care.
[2020-08-12] MEDS ORDERED: warfarin 5mg tablet PO ONE (21:00)
[2020-08-12] MEDS: insulin glargine (Lantus) pen - multi-dose SQ SCH (21:00)
[2020-08-12] MEDS: sennosides 8.6mg tablet PO SCH (22:05)
[2020-08-12] MEDS: quetiapine 100mg tablet PO SCH (22:06)
[2020-08-12] MEDS: atorvastatin 20mg tablet PO SCH (22:06)
[2020-08-12] MEDS: mirtazapine 15mg tablet PO SCH (22:08)
--- NOTE | 2020-08-12 23:00 | NUR ---
PATIENT REFUSED TO TAKE MEDS, LANTUS INSULIN, ACCU CHECKS. BECOMES COMBATIVE WHEN CHANGED, VERY UNCOOPERATIVE WITH CARE.
--- NOTE | 2020-08-13 | NUR ---
PATIENT REFUSED VITALS.
[2020-08-13] MEDS: piperacillin/tazo 3.375gm/50ml 50 ML IV SCH ×3 (00:23→16:24)
--- NOTE | 2020-08-13 06:30 | NUR ---
Problems reprioritized. Patient report given, questions answered & plan of care reviewed with SALVADOR LOPEZ.
--- NOTE | 2020-08-13 07:00 | NUR ---
patient refused blood glucose assessment. Addendum: 08/13/20 at 0952 by Marybeth Walker RN Amended: Links added.
[2020-08-13 07:45] VITALS: BP 192/85
[2020-08-13] MEDS: K and/or MAG REPLACEMENT MC SCH ×2 (08:00→20:00)
--- NOTE | 2020-08-13 08:00 | NUR ---
patient refusing vital signs. Addendum: 08/13/20 at 0954 by Marybeth Walker RN Amended: Links added.
[2020-08-13] MEDS: polyethylene glycol 3350 17gm powd pack PO SCH (09:19)
[2020-08-13] MEDS: acetaminophen 325mg tablet PO SCH ×3 (09:19→21:30)
[2020-08-13] MEDS: lactobacillus rhamnosus 10,000 MMU CELLS/CAPSULE PO SCH ×2 (09:19→21:30)
[2020-08-13] MEDS: multivitamins, therapeutics tablet PO SCH (09:20)
[2020-08-13] MEDS: amiodarone 200mg tablet PO SCH (09:20)
[2020-08-13] MEDS: sertraline 50mg tablet PO SCH (09:20)
[2020-08-13] MEDS: docusate sod 100mg capsule PO SCH ×2 (09:20→21:30)
[2020-08-13] MEDS: ascorbic acid 500mg tablet PO SCH ×3 (09:20→21:30)
[2020-08-13] MEDS: heparin, porcine 5000 units/ml vial SQ SCH ×2 (09:21→21:30)
[2020-08-13] MEDS: insulin Lispro (HumaLOG) vial - multi-dose SQ SCH ×3 (09:32→19:58)
[2020-08-13 09:53] VITALS: BP 192/85
--- NOTE | 2020-08-13 12:00 | NUR ---
patient refused afternoon vital signs. Addendum: 08/13/20 at 1856 by Marybeth Walker RN Amended: Links added.
[2020-08-13 12:36] LABS: HEMOGLOBIN 10.9 g/dl (14.0-17.9); WHITE BLOOD COUNT 11.9 X10'3 (4.5-11.0)
[2020-08-13 12:38] LABS: BASOPHILS # (AUTO) 0.1 X10'3 (0-0.2); BASOPHILS % (AUTO) 0.4 % (0-1); EOSINOPHILS # (AUTO) 0.1 X10'3 (0-0.9); EOSINOPHILS % (AUTO) 0.7 % (0-6); LYMPHOCYTES # (AUTO) 0.9 X10'3 (1.1-4.8); LYMPHOCYTES % (AUTO) 7.2 % (21-51); MEAN CORPUSCULAR HEMOGLOBIN 29.8 PG (27.0-31.0); MEAN CORPUSCULAR VOLUME 90.4 FL (78-98); MEAN PLATELET VOLUME 7.2 FL (7.4-10.4); MONOCYTES # (AUTO) 0.8 X10'3 (0-0.9); MONOCYTES % (AUTO) 6.9 % (2-12); NEUTROPHILS # (AUTO) 10.1 X10'3 (1.8-7.7); NEUTROPHILS % (AUTO) 84.8 % (42-75); PLATELET COUNT 368 X10'3 (140-440); RED BLOOD COUNT 3.65 X10'6 (4.70-6.10); RED CELL DISTRIBUTION WIDTH 14.5 % (11.5-14.5)
[2020-08-13 13:36] LABS: ALANINE AMINOTRANSFERASE 31 U/L (12-78); ALBUMIN 1.7 G/DL (3.4-5.0); ALBUMIN/GLOBULIN RATIO 0.4 (1.1-1.5); ALKALINE PHOSPHATASE 68 IU/L (46-116); ANION GAP 10 (8-16); ASPARTATE AMINO TRANSFERASE 27 U/L (10-37); BILIRUBIN,TOTAL 0.4 MG/DL (0.1-1.0); BLOOD UREA NITROGEN 26 MG/DL (7-18); BUN/CREATININE RATIO 9.4 (5.4-32.0); CALCIUM 8.5 MG/DL (8.5-10.1); CHLORIDE 105 MMOL/L (99-107); CREATININE 2.76 MG/DL (0.60-1.10); GLUCOSE 357 MG/DL (70-104); POTASSIUM 4.1 MMOL/L (3.5-5.1); SODIUM 139 MMOL/L (135-145); TOTAL CARBON DIOXIDE 23.9 MMOL/L (24-32); eGFR 22 ML/MIN
[2020-08-13] MEDS: normal saline 1000ml 1,000 ML IV SCH (14:33)
--- NOTE | 2020-08-13 18:42 | NUR ---
Problems reprioritized. Patient report given, questions answered & plan of care reviewed with JOHN Padgett.
--- NOTE | 2020-08-13 18:45 | NUR ---
Patient in room [facility]. I have received report from SALVADOR LOPEZ and had the opportunity to ask questions and assume patient care.
[2020-08-13] MEDS ORDERED: warfarin 5mg tablet PO ONE (21:00)
[2020-08-13] MEDS: mirtazapine 15mg tablet PO SCH (21:30)
[2020-08-13] MEDS: sennosides 8.6mg tablet PO SCH (21:30)
[2020-08-13] MEDS: OLANZapine 2.5MG tablet PO SCH (21:30)
[2020-08-13] MEDS: atorvastatin 20mg tablet PO SCH (21:30)
[2020-08-13] MEDS: insulin glargine (Lantus) pen - multi-dose SQ SCH (21:30)
[2020-08-13] MEDS: quetiapine 100mg tablet PO SCH (21:30)
[2020-08-14] MEDS: piperacillin/tazo 3.375gm/50ml 50 ML IV SCH ×4 (00:45→23:59)
--- NOTE | 2020-08-14 01:00 | NUR ---
PATIENT VERY UNCOOPERATIVE WITH CARE REFUSED VITAL SIGNS. REFUSED ALL MEDS, REFUSED ACCU CHECK, REFUSED INSULIN AND VERY COMBATIVE WHEN CHANGED WHEN WET WITH URINE.
[2020-08-14 05:39] LABS: BASOPHILS # (AUTO) 0.1 X10'3 (0-0.2); BASOPHILS % (AUTO) 0.7 % (0-1); EOSINOPHILS # (AUTO) 0.1 X10'3 (0-0.9); EOSINOPHILS % (AUTO) 0.7 % (0-6); HEMATOCRIT 31.9 % (42.0-52.0); HEMOGLOBIN 10.4 g/dl (14.0-17.9); LYMPHOCYTES # (AUTO) 1.6 X10'3 (1.1-4.8); LYMPHOCYTES % (AUTO) 13.2 % (21-51); MEAN CORPUSCULAR HEMOGLOBIN 29.6 PG (27.0-31.0); MEAN CORPUSCULAR HGB CONC 32.7 g/dL (33.0-36.5); MEAN CORPUSCULAR VOLUME 90.4 FL (78-98); MEAN PLATELET VOLUME 7.2 FL (7.4-10.4); MONOCYTES # (AUTO) 0.8 X10'3 (0-0.9); MONOCYTES % (AUTO) 6.7 % (2-12); NEUTROPHILS # (AUTO) 9.5 X10'3 (1.8-7.7); NEUTROPHILS % (AUTO) 78.7 % (42-75); PLATELET COUNT 367 X10'3 (140-440); RED BLOOD COUNT 3.53 X10'6 (4.70-6.10); RED CELL DISTRIBUTION WIDTH 14.2 % (11.5-14.5)
[2020-08-14 05:56] LABS: ALANINE AMINOTRANSFERASE 29 U/L (12-78); ALBUMIN 1.8 G/DL (3.4-5.0); ALBUMIN/GLOBULIN RATIO 0.4 (1.1-1.5); ALKALINE PHOSPHATASE 62 IU/L (46-116); ANION GAP 8 (8-16); ASPARTATE AMINO TRANSFERASE 31 U/L (10-37); BILIRUBIN,TOTAL 0.4 MG/DL (0.1-1.0); BLOOD UREA NITROGEN 28 MG/DL (7-18); BUN/CREATININE RATIO 10.1 (5.4-32.0); CALCIUM 7.9 MG/DL (8.5-10.1); CHLORIDE 105 MMOL/L (99-107); CREATININE 2.78 MG/DL (0.60-1.10); GLUCOSE 89 MG/DL (70-104); POTASSIUM 3.7 MMOL/L (3.5-5.1); SODIUM 139 MMOL/L (135-145); TOTAL CARBON DIOXIDE 26.1 MMOL/L (24-32); eGFR 22 ML/MIN
--- NOTE | 2020-08-14 06:30 | NUR ---
Problems reprioritized. Patient report given, questions answered & plan of care reviewed with MARIAN RN.
--- NOTE | 2020-08-14 06:42 | NUR ---
Patient in room [facility]. I have received report from Lorin LOPEZ and had the opportunity to ask questions and assume patient care.
[2020-08-14 07:00] VITALS: BP 138/65
--- NOTE | 2020-08-14 07:31 | NUR ---
Patient refused to have his finger pocked this morning
[2020-08-14] MEDS: K and/or MAG REPLACEMENT MC SCH ×2 (08:00→20:00)
[2020-08-14] MEDS: multivitamins, therapeutics tablet PO SCH (10:07)
[2020-08-14] MEDS: sertraline 50mg tablet PO SCH (10:07)
[2020-08-14] MEDS: ascorbic acid 500mg tablet PO SCH ×4 (10:07→21:45)
[2020-08-14] MEDS: polyethylene glycol 3350 17gm powd pack PO SCH (10:07)
[2020-08-14] MEDS: amiodarone 200mg tablet PO SCH (10:08)
[2020-08-14] MEDS: lactobacillus rhamnosus 10,000 MMU CELLS/CAPSULE PO SCH ×2 (10:08→21:42)
[2020-08-14] MEDS: docusate sod 100mg capsule PO SCH ×2 (10:08→21:41)
[2020-08-14] MEDS: acetaminophen 325mg tablet PO SCH ×4 (10:09→21:46)
[2020-08-14] MEDS: heparin, porcine 5000 units/ml vial SQ SCH ×2 (10:11→21:42)
--- NOTE | 2020-08-14 12:16 | NUR ---
refused accu check, started yelling to get out of his room and getting angry.
[2020-08-14] MEDS: normal saline 1000ml 1,000 ML IV SCH (12:50)
--- NOTE | 2020-08-14 15:56 | NUR ---
F/u 08/14: Pt PO remains poor declined to 0-25% meals past 1.5 days continues to fluctuate from ~50% avg prior. Dementia likely to impact PO hx; refused roughly half of meds today. RD supplement recs still not verified at this time so pt not receiving; RD d/w RN regarding ONS recs for kcals/protein/wound healing needs if MD agreeable. Glu currently 184 down from 349 previously today. LBM 08/13 receiving routine bowel care. Recommendations: 1) Advance diet as medically indicated to regular d/t poor PO intake and geriatric age 2) Herber smoothie BIDBD for wound healing needs, Glucerna q lunch 3) Routine bowel care 4) Continue MVI for wound healing 5) Scaled weights per rx Addendum: 08/14/20 at [address] Amended: Links added.
[2020-08-14] MEDS ORDERED: furosemide 20MG tablet PO ONE (16:45)
[2020-08-14] MEDS: JUVEN Smoothie Arginine/Glut./Ca2+Bmb (Juven 19.3pkt) 240ml cup PO SCH (17:30)
[2020-08-14] MEDS: OLANZapine 2.5MG tablet PO SCH (17:32)
--- NOTE | 2020-08-14 19:01 | NUR ---
Problems reprioritized. Patient report given, questions answered & plan of care reviewed with Bryan LOPEZ.
[2020-08-14 19:18] VITALS: BP 164/76
[2020-08-14] MEDS: sennosides 8.6mg tablet PO SCH (21:00)
[2020-08-14] MEDS ORDERED: warfarin 3mg tablet PO ONE (21:00)
[2020-08-14] MEDS: insulin glargine (Lantus) pen - multi-dose SQ SCH (21:00)
[2020-08-14] MEDS: atorvastatin 20mg tablet PO SCH (21:42)
[2020-08-14] MEDS: mirtazapine 15mg tablet PO SCH (21:45)
[2020-08-14] MEDS: quetiapine 100mg tablet PO SCH (21:45)
[2020-08-15] VITALS: BP 163/86
[2020-08-15] MEDS: HYDROcodone/acetaminophen 10/325mg tab PO PRN (00:03)
--- NOTE | 2020-08-15 06:49 | NUR ---
Patient in room [facility] 357. I have received report from Bryan LOPEZ and had the opportunity to ask questions and assume patient care.
--- NOTE | 2020-08-15 06:59 | NUR ---
Problems reprioritized. Patient report given, questions answered & plan of care reviewed with Demario. Addendum: 08/15/20 at 0700 by Ted Peace RN Amended: Links added.
[2020-08-15 07:04] VITALS: BP 109/59
[2020-08-15] MEDS: JUVEN Smoothie Arginine/Glut./Ca2+Bmb (Juven 19.3pkt) 240ml cup PO SCH ×2 (07:30→18:14)
[2020-08-15] MEDS: multivitamins, therapeutics tablet PO SCH (08:00)
[2020-08-15] MEDS: K and/or MAG REPLACEMENT MC SCH ×2 (08:00→20:00)
[2020-08-15] MEDS: normal saline 1000ml 1,000 ML IV SCH (08:50)
[2020-08-15] MEDS ORDERED: LORazepam 1 MG tablet PO PRN (09:15)
[2020-08-15] MEDS: piperacillin/tazo 3.375gm/50ml 50 ML IV SCH ×2 (10:27→16:40)
[2020-08-15] MEDS: ascorbic acid 500mg tablet PO SCH ×3 (10:39→21:00)
[2020-08-15] MEDS: amiodarone 200mg tablet PO SCH (10:39)
[2020-08-15] MEDS: lactobacillus rhamnosus 10,000 MMU CELLS/CAPSULE PO SCH ×2 (10:40→20:00)
[2020-08-15] MEDS: acetaminophen 325mg tablet PO SCH ×3 (10:40→21:00)
[2020-08-15] MEDS: docusate sod 100mg capsule PO SCH ×2 (10:40→20:00)
[2020-08-15] MEDS: polyethylene glycol 3350 17gm powd pack PO SCH (10:41)
[2020-08-15] MEDS: heparin, porcine 5000 units/ml vial SQ SCH ×2 (10:45→20:00)
[2020-08-15] MEDS: insulin Lispro (HumaLOG) vial - multi-dose SQ SCH ×3 (10:52→19:56)
[2020-08-15 11:00] VITALS: BP 127/49
[2020-08-15] MEDS: NUT.TX.GLUC.INTOLER,LAC-FR,SOY (GLUCERNA) 237 ML PO SCH (12:45)
[2020-08-15 14:28] LABS: ALANINE AMINOTRANSFERASE 35 U/L (12-78); ALBUMIN 1.8 G/DL (3.4-5.0); ALBUMIN/GLOBULIN RATIO 0.4 (1.1-1.5); ALKALINE PHOSPHATASE 64 IU/L (46-116); ANION GAP 13 (8-16); ASPARTATE AMINO TRANSFERASE 33 U/L (10-37); BILIRUBIN,TOTAL 0.3 MG/DL (0.1-1.0); BLOOD UREA NITROGEN 34 MG/DL (7-18); BUN/CREATININE RATIO 10.7 (5.4-32.0); CALCIUM 7.8 MG/DL (8.5-10.1); CHLORIDE 100 MMOL/L (99-107); CREATININE 3.19 MG/DL (0.60-1.10); GLUCOSE 329 MG/DL (70-104); POTASSIUM 3.6 MMOL/L (3.5-5.1); SODIUM 135 MMOL/L (135-145); eGFR 19 ML/MIN
[2020-08-15] MEDS ORDERED: furosemide 20 MG/2 ML vial IV ONE (17:05)
--- NOTE | 2020-08-15 18:18 | NUR ---
Problems reprioritized. Patient report given, questions answered & plan of care reviewed with Bryan LOPEZ.
[2020-08-15 19:00] VITALS: BP 140/52
[2020-08-15] MEDS: OLANZAPINE 5 MG TABLET PO SCH (19:50)
[2020-08-15] MEDS: sennosides 8.6mg tablet PO SCH (21:00)
[2020-08-15] MEDS: insulin glargine (Lantus) pen - multi-dose SQ SCH (21:00)
[2020-08-15] MEDS ORDERED: warfarin 1mg tablet PO ONE (21:00)
[2020-08-15] MEDS: atorvastatin 20mg tablet PO SCH (21:00)
[2020-08-15] MEDS: mirtazapine 15mg tablet PO SCH (21:00)
[2020-08-16] MEDS: piperacillin/tazo 3.375gm/50ml 50 ML IV SCH ×3 (00:21→20:38)
[2020-08-16] MEDS: HYDROcodone/acetaminophen 10/325mg tab PO PRN ×2 (04:51→20:31)
--- NOTE | 2020-08-16 06:29 | NUR ---
Problems reprioritized. Patient report given, questions answered & plan of care reviewed with MARIAN. Addendum: 08/16/20 at 0630 by Ted Peace RN Amended: Links added.
[2020-08-16 07:00] VITALS: BP 156/36
--- NOTE | 2020-08-16 07:03 | NUR ---
Patient in room [facility] 357. I have received report from Bryan LOPEZ and had the opportunity to ask questions and assume patient care.
[2020-08-16] MEDS: K and/or MAG REPLACEMENT MC SCH ×2 (08:00→20:00)
[2020-08-16] MEDS: docusate sod 100mg capsule PO SCH ×2 (08:03→20:00)
[2020-08-16] MEDS: multivitamins, therapeutics tablet PO SCH (08:04)
[2020-08-16] MEDS: OLANZAPINE 5 MG TABLET PO SCH ×2 (08:04→20:32)
[2020-08-16] MEDS: acetaminophen 325mg tablet PO SCH ×3 (08:04→21:00)
[2020-08-16] MEDS: lactobacillus rhamnosus 10,000 MMU CELLS/CAPSULE PO SCH ×2 (08:04→20:34)
[2020-08-16] MEDS: ascorbic acid 500mg tablet PO SCH ×3 (08:04→20:32)
[2020-08-16] MEDS: polyethylene glycol 3350 17gm powd pack PO SCH (08:05)
[2020-08-16] MEDS: amiodarone 200mg tablet PO SCH (08:05)
[2020-08-16] MEDS: sertraline 25mg tablet PO SCH (08:05)
[2020-08-16] MEDS: heparin, porcine 5000 units/ml vial SQ SCH ×2 (08:09→20:35)
[2020-08-16] MEDS: JUVEN Smoothie Arginine/Glut./Ca2+Bmb (Juven 19.3pkt) 240ml cup PO SCH ×2 (08:09→18:00)
[2020-08-16] MEDS: insulin Lispro (HumaLOG) vial - multi-dose SQ SCH ×3 (08:13→19:48)
[2020-08-16] MEDS ORDERED: normal saline 500ml IV soln 500 ML IV ONE (08:25)
[2020-08-16] MEDS: normal saline 1000ml 1,000 ML IV SCH ×3 (08:25→22:32)
[2020-08-16 11:00] VITALS: BP 123/52
[2020-08-16] MEDS: NUT.TX.GLUC.INTOLER,LAC-FR,SOY (GLUCERNA) 237 ML PO SCH (12:36)
[2020-08-16 14:32] LABS: ALANINE AMINOTRANSFERASE 36 U/L (12-78); ALBUMIN 1.8 G/DL (3.4-5.0); ALBUMIN/GLOBULIN RATIO 0.4 (1.1-1.5); ALKALINE PHOSPHATASE 64 IU/L (46-116); ANION GAP 11 (8-16); ASPARTATE AMINO TRANSFERASE 41 U/L (10-37); BILIRUBIN,TOTAL 0.4 MG/DL (0.1-1.0); BLOOD UREA NITROGEN 32 MG/DL (7-18); BUN/CREATININE RATIO 10.7 (5.4-32.0); CALCIUM 7.7 MG/DL (8.5-10.1); CHLORIDE 104 MMOL/L (99-107); CREATININE 2.99 MG/DL (0.60-1.10); GLUCOSE 284 MG/DL (70-104); POTASSIUM 3.4 MMOL/L (3.5-5.1); SODIUM 139 MMOL/L (135-145); TOTAL CARBON DIOXIDE 23.6 MMOL/L (24-32); TOTAL PROTEIN 6.1 G/DL (6.4-8.2); eGFR 20 ML/MIN
[2020-08-16 18:00] VITALS: BP 170/79
--- NOTE | 2020-08-16 18:51 | NUR ---
Patient in room [facility]. I have received report from JOHN Hanks and had the opportunity to ask questions and assume patient care.
--- NOTE | 2020-08-16 18:54 | NUR ---
Problems reprioritized. Patient report given, questions answered & plan of care reviewed with Britton LOPEZ.
[2020-08-16] MEDS: atorvastatin 20mg tablet PO SCH (20:34)
[2020-08-16] MEDS: mirtazapine 15mg tablet PO SCH (20:35)
[2020-08-16] MEDS: sennosides 8.6mg tablet PO SCH (21:00)
[2020-08-16] MEDS: insulin glargine (Lantus) pen - multi-dose SQ SCH (21:00)
[2020-08-16] MEDS ORDERED: warfarin 1mg tablet PO ONE (21:00)
[2020-08-16] MEDS: POTASSIUM BICARB 20meq eff tab 20 MEQ TABLET.EFF PO PRN (22:28)
--- NOTE | 2020-08-16 23:05 | NUR ---
unable to do orthostatic vitals Addendum: 08/16/20 at 2305 by Britton Pelayo RN Amended: Links added.
[2020-08-17 00:30] VITALS: BP 144/72
[2020-08-17] MEDS: HYDROcodone/acetaminophen 10/325mg tab PO PRN (04:35)
[2020-08-17 05:28] LABS: ALANINE AMINOTRANSFERASE 34 U/L (12-78); ALBUMIN 1.8 G/DL (3.4-5.0); ALBUMIN/GLOBULIN RATIO 0.4 (1.1-1.5); ALKALINE PHOSPHATASE 62 IU/L (46-116); ANION GAP 11 (8-16); ASPARTATE AMINO TRANSFERASE 33 U/L (10-37); BILIRUBIN,TOTAL 0.3 MG/DL (0.1-1.0); BLOOD UREA NITROGEN 36 MG/DL (7-18); BUN/CREATININE RATIO 11.8 (5.4-32.0); CHLORIDE 106 MMOL/L (99-107); CREATININE 3.04 MG/DL (0.60-1.10); GLUCOSE 111 MG/DL (70-104); POTASSIUM 3.8 MMOL/L (3.5-5.1); SODIUM 142 MMOL/L (135-145); TOTAL CARBON DIOXIDE 25.4 MMOL/L (24-32); TOTAL PROTEIN 6.1 G/DL (6.4-8.2); eGFR 20 ML/MIN
--- NOTE | 2020-08-17 06:41 | NUR ---
Problems reprioritized. Patient report given, questions answered & plan of care reviewed with JOHN Marie.
[2020-08-17] MEDS: JUVEN Smoothie Arginine/Glut./Ca2+Bmb (Juven 19.3pkt) 240ml cup PO SCH (07:30)
[2020-08-17] MEDS: lactobacillus rhamnosus 10,000 MMU CELLS/CAPSULE PO SCH (08:00)
[2020-08-17] MEDS: K and/or MAG REPLACEMENT MC SCH (08:00)
[2020-08-17 08:30] VITALS: BP 184/73
[2020-08-17] MEDS: normal saline 1000ml 1,000 ML IV SCH (09:08)
[2020-08-17] MEDS: sertraline 25mg tablet PO SCH (09:15)
[2020-08-17] MEDS: acetaminophen 325mg tablet PO SCH (09:15)
[2020-08-17] MEDS: piperacillin/tazo 3.375gm/50ml 50 ML IV SCH (09:15)
[2020-08-17] MEDS: amiodarone 200mg tablet PO SCH (09:16)
[2020-08-17] MEDS: multivitamins, therapeutics tablet PO SCH (09:16)
[2020-08-17] MEDS: docusate sod 100mg capsule PO SCH (09:16)
[2020-08-17] MEDS: heparin, porcine 5000 units/ml vial SQ SCH (09:16)
[2020-08-17] MEDS: ascorbic acid 500mg tablet PO SCH (09:16)
[2020-08-17] MEDS: OLANZAPINE 5 MG TABLET PO SCH (09:16)
[2020-08-17] MEDS: polyethylene glycol 3350 17gm powd pack PO SCH (09:17)
[2020-08-17 12:05] VITALS: BP 131/71
--- NOTE | 2020-08-17 13:00 | NUR ---
Patient report called to Melissa mendozaquis all questions answered. Patients belongings sent with patient. Patient transported by [facility] via gurney. Discharge pictures taken for discharge however, some of them did not come out
== END 2020-08-17 13:09 | DRG 616 ==
LOC: WOUND CARE 11:37 → EDSTATUS 12:00 → PCU 3S 14:34 → WOUND CARE 14:58 → PCU 3S 15:00 → SUR 3N 08-09 05:00
PROVIDERS: ADMIT Family Medicine; ATTEND Family Medicine
PROC: B4211ZZ Computerized Tomography (CT Scan) of Celiac Artery using Low Osmolar Contrast (ICD-10-PCS; 2020-08-04)
PROC: B4241ZZ Computerized Tomography (CT Scan) of Superior Mesenteric Artery using Low Osmolar Contrast (ICD-10-PCS; 2020-08-04)
PROC: B4281ZZ Computerized Tomography (CT Scan) of Bilateral Renal Arteries using Low Osmolar Contrast (ICD-10-PCS; 2020-08-04)
PROC: B42H1ZZ Computerized Tomography (CT Scan) of Bilateral Lower Extremity Arteries using Low Osmolar Contrast (ICD-10-PCS; 2020-08-04)
PROC: 0Y9N0ZZ Drainage of Left Foot, Open Approach (ICD-10-PCS; 2020-08-10)
PROC: 0Y6S0Z0 Detachment at Left 2nd Toe, Complete, Open Approach (ICD-10-PCS; principal; 2020-08-10 16:23)
PROC: 02HV33Z Insertion of Infusion Device into Superior Vena Cava, Percutaneous Approach (ICD-10-PCS; 2020-08-12)
DX: E11.69 Type 2 diabetes mellitus with other specified complication (principal); G93.41 Metabolic encephalopathy; E11.52 Type 2 diabetes mellitus with diabetic peripheral angiopathy with gangrene; E87.2 Acidosis; F05 Delirium due to known physiological condition; F03.91 Unspecified dementia, unspecified severity, with behavioral disturbance; I50.32 Chronic diastolic (congestive) heart failure; M86.8X7 Other osteomyelitis, ankle and foot; Z66 Do not resuscitate; N17.9 Acute kidney failure, unspecified; E11.65 Type 2 diabetes mellitus with hyperglycemia; E78.5 Hyperlipidemia, unspecified; I11.0 Hypertensive heart disease with heart failure; K21.9 Gastro-esophageal reflux disease without esophagitis; M79.604 Pain in right leg; M79.672 Pain in left foot; I48.91 Unspecified atrial fibrillation; D64.9 Anemia, unspecified; E87.6 Hypokalemia; J44.9 Chronic obstructive pulmonary disease, unspecified; I49.5 Sick sinus syndrome; B96.20 Unspecified Escherichia coli [E. coli] as the cause of diseases classified elsewhere; Z85.038 Personal history of other malignant neoplasm of large intestine; Z87.891 Personal history of nicotine dependence; Z90.49 Acquired absence of other specified parts of digestive tract; Z95.0 Presence of cardiac pacemaker; Z95.2 Presence of prosthetic heart valve; Z98.49 Cataract extraction status, unspecified eye; Z79.899 Other long term (current) drug therapy; Z82.3 Family history of stroke; Z82.49 Family history of ischemic heart disease and other diseases of the circulatory system; Z78.1 Physical restraint status
CPT/HCPCS: 36415; 36416; 36573; 71045; 73706; 74174; 76937; 80048; 80053; 80061; 80202; 81003; 82948; 83036; 83605; 83735; 84100; 84132; 84145; 84439; 84443; 85007; 85025; 85610; 85651; 85730; 87040; 87070; 87075; 87077; 87081; 87102; 87186; 88305; 88311; 92508; 92616; 93005; 93306; 97110; 97162; 97164; 97530; A4618; A6223; A6446; A6449; A7000; G0378; G0463; J1630; J1644; J1815; J1940; J2060; J2250; J2270; J2543; J2704; J3010; J3370; J3480; J7030; J7040; Q9967